=== PATIENT | male | born 1940 | race Caucasian/White ===

== ENCOUNTER → 2016-11-30 | Outpatient (CLI) | payer MEDICARE, BC ==
[2016-11-30 10:19] LABS: CH 34.2; CHCM 35.2; HCT 38.2 % (39.0-53.0); HDW 2.65; HGB 13.3 gm/dL (13.0-17.5); MCHC 34.8 g/dL (31.0-37.0); MCV 97.7 fL (80.0-100.0); Mean Platelet Volume 7.5; RBC 3.91 m/uL (4.30-5.90); RDW 12.7 % (11.5-15.5)
[2016-11-30 11:35] LABS: ALT 35 U/L (21-72); AST 36 U/L (17-59); Alkaline Phosphatase 63 U/L (38-126); Anion Gap 8 mmol/L; Blood Urea Nitrogen 30 mg/dL (9-20); Calcium 9.5 mg/dL (8.4-10.2); Carbon Dioxide 27 mmol/L (22-30); Chloride 107 mmol/L (98-107); Glucose 88 mg/dL (74-99); Non-African American GFR(MDRD) >60 (>60 ml/min/1.73 sqM); Potassium 5.1 mmol/L (3.5-5.1); Sodium 142 mmol/L (137-145); Total Bilirubin 1.1 mg/dL (0.2-1.3); Total Protein 7.5 g/dL (6.3-8.2)
[2016-11-30 12:27] LABS: Vitamin B12 200 pg/mL
[2016-11-30 13:06] LABS: Hemoglobin A1C 5.4 % (4.2-6.1)
== END ==
LOC: LABWHC1 09:42
PROVIDERS: ATTEND Psychiatry & Neurology Pain Medicine
DX: R41.3 Other amnesia (principal); R56.9 Unspecified convulsions; Z79.899 Other long term (current) drug therapy
CPT/HCPCS: 36415; 80053; 82607; 83036; 83519; 84439; 84443; 84481; 85027

== ENCOUNTER → 2016-12-01 | Outpatient (CLI) | payer MEDICARE, BC ==
--- NOTE | 2016-12-02 16:11 | NM ---
EXAMINATION TYPE: NM DatScan Brain SPECT DATE OF EXAM: 12/01/2016 3:11 PM COMPARISON: NONE HISTORY: Memory loss TECHNIQUE: 10 drops of Lugol's solution was administered 1 hour prior to injection as a thyroid bloc cody agent. After the administration of 4.4 mCi I-123 Ioflupane DaTscan. Images obtained [address] injection. SPECT images of the brain were acquired with axial and coronal reconstructions. FINDINGS: Scanning was performed and shows a head tilt causing a somewhat asymmetric appearance in the axial pl ane. Diminished putamen uptake is suspected within the right striatal tissue however. Normal comma sh aped uptake is noted within the putamen and caudate on the left. IMPRESSION: Findings are suggestive of abnormal decreased uptake within the putamen on the right.
== END ==
LOC: RADNMMAIN 10:01
PROVIDERS: ATTEND Psychiatry & Neurology Neurology
DX: R25.1 Tremor, unspecified (principal); R41.3 Other amnesia
CPT/HCPCS: 78607; A9584

== ENCOUNTER → 2016-12-03 | Outpatient (CLI) | payer MEDICARE, BC ==
--- NOTE | 2016-12-03 12:28 | CT ---
EXAMINATION TYPE: CT brain wo/w con DATE OF EXAM: 12/03/2016 11:44 AM COMPARISON: 07/31/2015 HISTORY: Seizures, tremors CT DLP: 2749 mGycm, Automated exposure control for dose reduction was used. CONTRAST: Patient injected with 65 ml mL of Omnipaque 350. CT of the brain is performed utilizing 3 mm thick sections through the posterior fossa and 3 mm thick sections through the remaining calvarium. Study is performed within 24 hours of arrival to the hospital. No abnormal hyperdensity is present to suggest an acute intracranial hemorrhage. No mass lesion is evident. No acute infarcts are evident. Ventricles and sulci are minimally prominent for the patient age. Postcontrast imaging is performed. No abnormal enhancement is evident. Paranasal sinuses and mastoid air cells within the [id number] are clear. IMPRESSIONS: 1. No acute intracranial process.
--- NOTE | 2016-12-04 10:04 | CT ---
EXAMINATION TYPE: CT angio head neck DATE OF EXAM: 12/03/2016 11:44 AM COMPARISON: NONE HISTORY: Seizures, tremors CT DLP: 2749 mGycm Automated exposure control for dose reduction was used. TECHNIQUE: Performed with IV Contrast, patient injected with 65 ml mL of Omnipaque 350. Axial images were obtained at 8 mm thick sections. Three-D reconstructed images performed separately by the technologist of the [employer] computer.. FINDINGS: Source images are reviewed. CTA [place]: [place] appears within normal limits. The internal carotid arteries bi furcate normally into A1 and M1 segments. Very small anterior vena cava and artery may be patent. Posterior indicating artery is present on the right.There is poor visualization of the right vertebral artery. Basilar artery appears normal. Pos terior cerebral vasculature is visualized is. CTA NECK: Atheromatous plaquing is at the bilateral carotid bifurcations. Significant flow-limiting s tenosis is not evident. There is a normal three-vessel arch. The left vertebral artery is dominant. R ight intraspinous vertebral artery is identified IMPRESSION: 1. ATHEROMATOUS PLAQUING WITHOUT SIGNIFICANT STENOSIS BILATERAL CAROTID BIFURCATIONS. 2. NORMAL [place]
== END ==
LOC: RADCTMAIN 10:42
PROVIDERS: ATTEND Psychiatry & Neurology Pain Medicine
DX: R41.3 Other amnesia (principal); R25.1 Tremor, unspecified
CPT/HCPCS: 70496; 70470; 70498; Q9967

== ENCOUNTER → 2017-02-10 | Outpatient (CLI) | payer MEDICARE, BC ==
--- NOTE | 2017-02-10 13:11 | US ---
EXAMINATION TYPE: US venous doppler duplex LE RT DATE OF EXAM: 02/10/2017 12:50 PM COMPARISON: NONE CLINICAL HISTORY: Pain in right lower leg M79.661. Pain right calf SIDE PERFORMED: right TECHNIQUE: The lower extremity deep venous system is examined utilizing real time linear array sonog dione with graded compression, doppler sonography and color-flow sonography. VESSELS IMAGED: External Iliac Vein (EIV) Common Femoral Vein Deep Femoral Vein Greater Saphenous Vein * Femoral Vein Popliteal Vein Small Saphenous Vein * Proximal Calf Veins (* superficial vessels) Right Leg: NO evidence of DVT IMPRESSION: Grayscale, color doppler, spectral doppler imaging performed of the deep veins of the lo wer extremities. There is normal flow, compressibility, vascular waveforms bilaterally.
== END | disposition home or self-care (01) ==
LOC: RADUSWWP 12:19
PROVIDERS: ATTEND Family Medicine
DX: M79.661 Pain in right lower leg (principal)

== ENCOUNTER → 2017-06-29 | Outpatient (CLI) | payer MEDICARE, BC ==
[2017-06-29 10:59] LABS: ALT 40 U/L (21-72); AST 25 U/L (17-59); Alkaline Phosphatase 65 U/L (38-126); Anion Gap 18 mmol/L; Blood Urea Nitrogen 19 mg/dL (9-20); Calcium 9.1 mg/dL (8.4-10.2); Carbon Dioxide 19 mmol/L (22-30); Chloride 105 mmol/L (98-107); Glucose 92 mg/dL (74-99); Non-African American GFR(MDRD) >60 (>60 ml/min/1.73 sqM); Potassium 4.6 mmol/L (3.5-5.1); Sodium 142 mmol/L (137-145); Total Bilirubin 1.3 mg/dL (0.2-1.3); Total Protein 7.3 g/dL (6.3-8.2)
== END | disposition home or self-care (01) ==
LOC: LABWHC1 09:10
PROVIDERS: ATTEND Family Medicine
DX: E03.9 Hypothyroidism, unspecified (principal)
CPT/HCPCS: 36415; 80053; 83605; 84439; 84443; 84481

== ENCOUNTER → 2018-02-01 | Outpatient (CLI) | payer MEDICARE, BC ==
[2018-02-01 12:28] LABS: Basophils % (A) 0 %; Eosinophils # (A) 0.1 k/uL (0-0.7); Eosinophils % (A) 2 %; HCT 36.6 % (39.0-53.0); HGB 12.7 gm/dL (13.0-17.5); Lymphocytes # (A) 1.7 k/uL (1.0-4.8); Lymphocytes % (A) 33 %; MCH 32.4 pg (25.0-35.0); MCHC 34.6 g/dL (31.0-37.0); MCV 93.5 fL (80.0-100.0); Mean Platelet Volume 7.4; Monocytes # (A) 0.3 k/uL (0-1.0); Monocytes % (A) 7 %; Neutrophils # (A) 2.9 k/uL (1.3-7.7); Neutrophils % (A) 56 %; Platelet Count 191 k/uL (150-450); RBC 3.91 m/uL (4.30-5.90); WBC 5.3 k/uL (3.8-10.6)
[2018-02-01 12:37] LABS: Partial Thromboplastin Time 22.3 sec (22.0-30.0); Prothrombin Time 10.2 sec (9.0-12.0)
== END | disposition home or self-care (01) ==
LOC: LABWHC1 11:33
PROVIDERS: ATTEND Nurse Practitioner Family
DX: R23.3 Spontaneous ecchymoses (principal)
CPT/HCPCS: 36415; 85025; 85610; 85730

== ENCOUNTER → 2018-05-10 | Outpatient (CLI) | payer MEDICARE, BC ==
--- NOTE | 2018-05-10 13:42 | CT ---
EXAMINATION TYPE: CT cervical spine wo con DATE OF EXAM: 05/10/2018 COMPARISON: CT cervical spine June 24, 2015. HISTORY: Decreased range of motion and pain with extension per patient. Cervicalgia per order. CT DLP: 479.4 mGycm. Automated Exposure Control for Dose Reduction was Utilized. TECHNIQUE: CT scan of the cervical spine is obtained without contrast, axial images are obtained, sa gittal and coronal reformatted images are also reviewed. FINDINGS: Cervical spine is visualized in its entirety from C1 through upper thoracic levels, coronal images redemonstrate levoconvex scoliotic curvature centered in the lower cervical spine without paramjit dence of acute fracture or dislocation. Sagittal images redemonstrated straightening of cervical spin e with slight grade 1 retrolisthesis of C6 on C7 redemonstrated. Prevertebral soft tissue appears wit hin normal limits. The C1-C2 articulation is within normal limits on the coronal images. Vertebral body heights are maintained. Moderate anterior spurring C4-C5 level is redemonstrated. Ther e is mild to moderate disc space narrowing with moderate to severe anterior spurring C5-C6 level. The re is fairly advanced disc space narrowing with moderate anterior spurring C6-C7 level redemonstrated . No new large posterior disc herniations are seen on sagittal images. Review of axial images shows uncovertebral facet degenerative change bilaterally, left greater than r ight more prominent from prior study causing asymmetric mild to moderate left-sided neural foraminal narrowing. Axial images at C3-C4 level show advanced uncovertebral facet degenerative changes causing advanced l eft-sided neural foraminal narrowing more prominent from prior. Axial images at C4-C5 level show left-sided uncovertebral facet degenerative changes causing mild lef t-sided neural foraminal narrowing not significantly changed from prior. Axial images at C5-C6 level show posterior spur disc complex effacing anterior thecal sac and uncover tebral facet degenerative changes with right-sided marginal spurring causing moderate to advanced rig ht-sided neural foraminal narrowing. Left-sided neural foramen is patent. No significant change from prior. Axial images at C6-C7 level show posterior spur disc complex and spondylolisthesis effacing anterior thecal sac with moderate left and mild right-sided neural foraminal narrowing. No significant change from prior. Axial images at C7-T1 level are felt within normal limits. Thyroid gland is felt within normal limits. Visualized lung apices are clear. IMPRESSION: Loss of normal cervical curvature with multilevel degenerative changes as detailed above, some progression from 2015 CT is noted.
== END | disposition home or self-care (01) ==
LOC: RADCTMAIN 12:01
PROVIDERS: ATTEND Psychiatry & Neurology Pain Medicine
DX: M47.812 Spondylosis without myelopathy or radiculopathy, cervical region (principal); M43.8X2 Other specified deforming dorsopathies, cervical region
CPT/HCPCS: 72125

== ENCOUNTER → 2018-07-04 | Outpatient (CLI) | payer MEDICARE, BC ==
--- NOTE | 2018-07-04 20:02 | CONS ---
CONSULTATION Consultation done for sleep apnea. 77-year-old male patient coming in to establish himself [facility] with myself in regards to his obstructive sleep apnea. The patient was diagnosed having ADAN back in 2014 under the care of Dr. Malcolm. His disease was mild with an AHI of 7.3, worse during REM sleep with an AHI of 49. The patient also had some nocturnal oxygen desaturation. He had multiple comorbidities included hypertension, coronary disease with previous AK and previous coronary stenting and has a permanent pacemaker insertion. For all these reasons, he was given CPAP therapy. He has been also diagnosed having Parkinson disease with Lewy body dementia. In terms of his obstructive sleep apnea treatment, the patient is utilizing an AirFit P10 nose pillow. I checked his CPAP unit which is showing excellent compliance to CPAP therapy. The patient has been averaging around 7.7 hours of CPAP use per night and his CPAP pressure is currently at 6 cm of water. Leak factor is only 20 L/minute. His AHI is down to 1.2. He has been doing very well. Waking up refreshed and alert during the day. No major hypersomnia or sleepiness. Note that as part of his dementia treatment the patient was given Exelon patches, however, he had to quit the treatment as the patient start having vivid dreams to the point it was very bothering him and he was unable to tolerate it. He was not acting out on his dreams and he did not any parasomnias or any violent behavior at nighttime during sleep. He goes to bed around 11:00 p.m., wakes up 6:00 a.m. in the morning. He is not snoring while on the CPAP therapy and he wakes up easily without any symptoms of insomnia and sleep is not fragment and wakes up in the morning without any major issues. PAST MEDICAL HISTORY: 1. Obstructive sleep apnea. 2. Coronary artery disease. 3. Parkinson disease. 4. Lewy body dementia. 5. Hypertension. 6. Hyperlipidemia. 7. Coronary disease with previous coronary intervention and stenting, due to previous myocardial infarction. 8. Permanent pacemaker insertion. 9. Hypertension. PAST SURGICAL HISTORY: Includes left knee arthroscopy. The left eye surgery for retinal detachment. Salivary gland/lymph node gland removal, pacemaker insertion, cardiac catheterization and insertion of various stents. DRUG ALLERGIES: Not known. OUTPATIENT MEDICATION LIST: Includes Synthroid 112 mcg p.o. daily, Losartan 25 mg p.o. daily, Plavix 75 mg p.o. b.i.d., Lipitor 80 mg p.o. daily, midodrine 2.5 mg half tablet with breakfast and then half tablet at lunch, Exelon rivastigmine patch 3 mg every 2 days and vitamin D 2000 units daily. SOCIAL HISTORY: Nonsmoker. No alcohol. No history of IV drugs. FAMILY HISTORY: Noncontributory. REVIEW OF SYSTEMS: 12-point review of system was done. Positive findings are mentioned above history of present illness. No history of any choking or gasping sensation at nighttime. No grinding of the teeth. No sleepwalking. No anxiety or panic attacks. No palpitation. No heartburn. No claustrophobia. Sleeps in various body positions. His sleep hygiene in general is adequate. No history of any motor vehicle accident because of feeling drowsy or sleepy. Weight has been stable also. PHYSICAL EXAMINATION: BP is 112/73, pulse 94, respirations 16, temperature 16, temperature 98.5, saturation 97% on room air. Height is 5 feet, weight is 208. Neck size 16.5 inches, BMI 29.8. GENERAL APPEARANCE: Calm, comfortable. Head is atraumatic, normocephalic. NECK: Supple. No JVD. No goiter or neck mass. LUNGS: Clear to auscultation. HEART: Sounds regular rhythm. Normal S1, S2. No S3. No murmurs. ABDOMEN: Soft, nontender. No organomegaly. EXTREMITIES: No edema. No cyanosis or clubbing. NEUROLOGIC: Alert and oriented x3. No focal neurological deficits. PSYCHIATRIC: Negative for anxiety or depression. IMPRESSION: 1. Obstructive sleep apnea mild with an AHI of 7.3 at baseline based on a sleep study from 2014. Currently the patient is on CPAP pressure of 6. 2. Hypersomnia, recovered, improved and stable. 3. Lewy body dementia. 4. Parkinson disease. 5. Coronary artery disease. 6. Hypertension. 7. Hyperlipidemia. 8. Hypothyroidism. PLAN: 1. Keep the PAP pressure unchanged. 2. Continue with AirFit P10 nose pillow. Refill on CPAP supplies were given. 3. Encourage weight loss. 4. Good sleep hygiene measures. 5. See me back in a year's time or earlier if needed. MMODL / IJN: [id number] /
== END | disposition home or self-care (01) ==
LOC: SLEEP 14:07
PROVIDERS: ATTEND Internal Medicine Critical Care Medicine
DX: G47.33 Obstructive sleep apnea (adult) (pediatric) (principal); I10 Essential (primary) hypertension; I25.10 Atherosclerotic heart disease of native coronary artery without angina pectoris; I25.2 Old myocardial infarction; G31.83 Neurocognitive disorder with Lewy bodies; F02.80 Dementia in other diseases classified elsewhere, unspecified severity, without behavioral disturbance, psychotic disturbance, mood disturbance, and anxiety; E78.5 Hyperlipidemia, unspecified; E03.9 Hypothyroidism, unspecified; Z98.890 Other specified postprocedural states; Z95.5 Presence of coronary angioplasty implant and graft; Z99.89 Dependence on other enabling machines and devices; Z79.02 Long term (current) use of antithrombotics/antiplatelets; Z79.899 Other long term (current) drug therapy
CPT/HCPCS: 99211

== ENCOUNTER → 2018-07-28 | Outpatient (CLI) | payer MEDICARE, BC ==
[2018-07-28 11:24] LABS: Basophils # (A) 0.1 k/uL (0-0.2); Basophils % (A) 1 %; Eosinophils # (A) 0.2 k/uL (0-0.7); Eosinophils % (A) 3 %; HCT 41.2 % (39.0-53.0); HGB 13.8 gm/dL (13.0-17.5); Lymphocytes # (A) 1.7 k/uL (1.0-4.8); Lymphocytes % (A) 27 %; MCH 33.1 pg (25.0-35.0); MCHC 33.5 g/dL (31.0-37.0); MCV 98.9 fL (80.0-100.0); Mean Platelet Volume 6.5; Monocytes # (A) 0.4 k/uL (0-1.0); Monocytes % (A) 6 %; Neutrophils # (A) 3.7 k/uL (1.3-7.7); Neutrophils % (A) 60 %; Platelet Count 161 k/uL (150-450); RBC 4.16 m/uL (4.30-5.90); RDW 12.6 % (11.5-15.5); WBC 6.2 k/uL (3.8-10.6)
[2018-07-28 19:20] LABS: Albumin 4.5 g/dL (3.80-4.90); Albumin/Globulin Ratio 1.8 (1.20-2.10); Anion Gap 8.3 mmol/L (4.00-12.00); Calcium 9.4 mg/dL (8.7-10.3); Carbon Dioxide 24.7 mmol/L (21.6-31.8); Globulin 2.5 g/dL (2.1-3.7); LDL Cholesterol,Calculated 60.4 mg/dL (0.0-131.0); Potassium 5.2 mmol/L (3.5-5.5); VLDL Calculation 14.6 mg/dL (5.00-40.00)
== END | disposition home or self-care (01) ==
LOC: LABWHC1 10:59
PROVIDERS: ATTEND Family Medicine
DX: G40.89 Other seizures (principal)
CPT/HCPCS: 36415; 80053; 80061; 82306; 84443; 85025

== ENCOUNTER → 2019-02-23 | Outpatient (CLI) | payer MEDICARE, BC ==
--- NOTE | 2019-02-23 10:20 | US ---
EXAMINATION TYPE: US abdomen complete DATE OF EXAM: 02/23/2019 COMPARISON: NONE CLINICAL HISTORY: R10.12 LUQ PAIN. Pt states generalized ABD pain EXAM MEASUREMENTS: Liver Length: 16.1 cm Gallbladder Wall: 0.3 cm CBD: 0.3 cm Spleen: 9.6 cm Right Kidney: 10.3 x 4.6 x 5.5 cm Left Kidney: 10.4 x 4.7 x 4.8 cm Abdominal aorta measures 2.7 cm proximally 1.8 cm within the midportion 2.1 cm distally. Pancreas: wnl, tail obscured by overlying bowel gas Liver: wnl Gallbladder: Lumen clear, wall thickness upper limits of normal Evidence for sonographic Perez's sign: No CBD: wnl Spleen: wnl Right Kidney: Complex Cyst mid= 1.8 x 1.6 x 1.8 cm with internal septation. Monitoring is recommended Left Kidney: No evidence of hydro, difficult to visualize due to overlying bowel gas Upper IVC: wnl Abd Aorta: Ectatic without evidence of AAA IMPRESSION: 1. Complex cyst right ovary with an internal septation. Monitoring is recommended. 2. Ectasia of the abdominal aorta.
== END | disposition home or self-care (01) ==
LOC: RADUSWWP 06:56
PROVIDERS: ATTEND Family Medicine
DX: I77.819 Aortic ectasia, unspecified site (principal); N28.1 Cyst of kidney, acquired; R10.12 Left upper quadrant pain
CPT/HCPCS: 76700

== ENCOUNTER → 2019-03-09 | Outpatient (CLI) | payer MEDICARE, BC ==
--- NOTE | 2019-03-09 12:51 | CT ---
EXAMINATION TYPE: CT angio chest DATE OF EXAM: 03/09/2019 COMPARISON: 03/09/2019 HISTORY: Shortness of breath CT DLP: 352.3 mGycm. Automated Exposure Control for Dose Reduction was Utilized. CONTRAST: CTA scan of the thorax is performed with IV Contrast, patient injected with 100 mL of Isovue 370, pul monary embolism protocol. MIP Images are created on CT scanner and reviewed. FINDINGS: LUNGS: There is increasing focality of a now 6 mm right apical pulmonary nodule seen medially on imag e 27 with the more linear component in total measuring 1.7 cm. 3 mm nodule is also seen on image 24 c ontiguous with pleural thickening. Linear pulmonary nodule on image 66 along the right interlobar fis sure is stable and may represent a small intrafissural lymph node. This measures up to 4 mm. The prev iously seen 5 mm right middle lobe nodule has resolved in the interim and was likely related to atele ctasis. The previously seen left midlung pulmonary nodule is unchanged measuring 4 mm on image 62. 4 mm pulmonary nodule is unchanged in the left lung base on image 125. Additional 3 mm pulmonary nodule is seen on the left on image 103, appearing new. No new focal consolidation, pleural effusion or pne umothorax. Strand-like basilar atelectasis is new in the right lung base. Main trachea (tree is paten t. MEDIASTINUM: There is satisfactory enhancement of the pulmonary artery and its branches, there is no CT evidence for pulmonary embolism. There are no greater than 1 cm hilar or mediastinal lymph nodes. No cardiomegaly or pericardial effusion is seen. Urinary stent is seen within the left anterior de scending coronary artery with severe makah coronary artery calcifications. Ascending thoracic aorta and main pulmonary arteries are within normal limits of size. Cardiac pacemaker is again noted. OTHER: 1.9 cm renal cyst is present. Moderate atherosclerosis of the upper abdominal aorta. Moderate multilevel degenerative changes of the spine. IMPRESSION: 1. No evidence of pulmonary embolus. 2. Coronary artery stent in the LAD with severe makah coronary artery calcifications. 3. New right basilar subsegmental atelectasis. 4. Multiple subcentimeter pulmonary nodules. The largest demonstrates increased conspicuity and one n ew nodule is seen and therefore short-term follow-up with six-month chest CT is recommended.
== END | disposition home or self-care (01) ==
LOC: RADCTMAIN 10:41
PROVIDERS: ATTEND Family Medicine
DX: I25.10 Atherosclerotic heart disease of native coronary artery without angina pectoris (principal); J98.11 Atelectasis; R91.8 Other nonspecific abnormal finding of lung field; R94.4 Abnormal results of kidney function studies; Z95.5 Presence of coronary angioplasty implant and graft
CPT/HCPCS: 82565; 84520; 71275; 36415; Q9967

== ENCOUNTER → 2019-03-09 | Outpatient (CLI) | payer MEDICARE, BC ==
--- NOTE | 2019-03-09 10:42 | CT ---
EXAMINATION TYPE: CT cervical spine wo con DATE OF EXAM: 03/09/2019 COMPARISON: CT cervical spine 05/10/2018 HISTORY: Cervicalgia CT DLP: 560 mGycm Automated exposure control for dose reduction was used. TECHNIQUE: CT scan of the cervical spine is obtained without contrast, axial images are obtained, sagittal and c oronal reformatted images are also reviewed. FINDINGS: The exam is stable. Multilevel spondylosis is present especially at C5-6, C6-7 with near loss of disc space at C6-7. Minimal anterolisthesis grade 1 C3-4. Loss of disc height also present C3-4, C4-5, C5 -6 and C7-T1 as on prior. There is multilevel facet arthropathy. Prevertebral soft tissue appears wit hin normal limits. The C1-C2 articulation is within normal limits on the coronal images. C3-4 shows extensive facet arthropathy in the left and uncovertebral joint hypertrophy causing left-s ided greater than right foraminal encroachment. No significant central stenosis. C4-5 shows extensive facet arthropathy in the left. No significant central stenosis or evident disc h erniation. C5-6: Bilateral foraminal encroachment is present right greater than left. Posterior extension of end plate disc complex causes mild anterior mass effect on the thecal sac. C6-7: Bilateral foraminal encroachment is present. Posterior extension endplate disc complex results in mild central stenosis. Remaining levels are unremarkable. Pacemaker lead is noted incidentally coursing from the left. Lung apices are normal. IMPRESSION: Degenerative disc disease, multilevel foraminal encroachment. Multilevel facet arthropath y. No significant spinal stenosis. No evident disc herniation on this noncontrast CT. There is no acute fracture or dislocation evident in the cervical spine.
== END | disposition home or self-care (01) ==
LOC: RADCTMAIN 08:02
PROVIDERS: ATTEND Psychiatry & Neurology Neurology
DX: M50.30 Other cervical disc degeneration, unspecified cervical region (principal); M46.92 Unspecified inflammatory spondylopathy, cervical region
CPT/HCPCS: 72125

== ENCOUNTER → 2019-07-05 | Outpatient (CLI) | payer MEDICARE, BC ==
--- NOTE | 2019-07-06 04:51 | NM ---
EXAMINATION TYPE: NM DatScan Brain SPECT DATE OF EXAM: 07/05/2019 COMPARISON: NONE HISTORY: 78-year-old male G25.0, tremor TECHNIQUE: 10 drops of Lugol's solution was administered 1 hour prior to injection as a thyroid bloc cody agent. After the administration of 4.44 mCi I-123 Ioflupane DaTscan. Images obtained 3 hours p ost injection. SPECT images of the brain were acquired with axial and coronal reconstructions. FINDINGS: The axial SPECT images demonstrate normal background activity. Accounting for head tilt, there appea rs to be slight asymmetrically blunted comma-shaped appearance of the right corpus striatum. IMPRESSION: Suggestion of very slight reduction in activity on the right. Consider follow-up given the minimal ch anges at this time. Findings may be seen in the setting of either idiopathic Parkinson's disease or a Parkinsonian Syndrome.
== END | disposition home or self-care (01) ==
LOC: RADNMMAIN 10:47
PROVIDERS: ATTEND Psychiatry & Neurology Neurology
DX: G25.0 Essential tremor (principal)
CPT/HCPCS: 78607; A9584

== ENCOUNTER → 2019-07-31 | Outpatient (CLI) | payer MEDICARE, BC ==
--- NOTE | 2019-07-31 19:52 | PN ---
PROGRESS NOTE This is a 78-year-old male patient coming in for annual check regarding his obstructive sleep apnea. The patient has mild disease with an AHI of 7.3, and he was given a CPAP pressure of 6 cm of water. Since his last evaluation, the patient has lost around 11 pounds. He is feeling great. He is using his CPAP every night. He is averaging about 8 hours per night and his CPAP use for more than 4 hours is 100%. His leak is at 29 L/minute and his AHI is down to 0.8. He is interested in a different mask interface as the patient is using AirFit P10 nose pillows. His humidity level is at 2 and temperature of the tubing is at 86 degrees Fahrenheit. He has no other complaints otherwise for now. PAST MEDICAL HISTORY: Of obstructive sleep apnea in addition to coronary artery disease, Parkinson disease dementia with Lewy bodies. Hypertension, hyperlipidemia, coronary artery disease and history of pacemaker insertion along with hypertension. REVIEW OF SYSTEMS: Fourteen-point review of system was done. No major hypersomnia or sleepiness. [place] score is down to 1. He is tolerating the treatment. He has no specific complaints. Occasionally, he is having some dryness in his mouth. PHYSICAL EXAMINATION: His vitals: His blood pressure is 121/69, pulse 65, respirations 16, temperature 97.5, saturation 98% on room air. Height is 5 feet 10 inches, weight 197, and saturation 97% on room air. GENERAL APPEARANCE: Calm, comfortable. Head is atraumatic, normocephalic. NECK: Supple. No JVD. No goiter or neck masses. LUNGS: Clear to auscultation. HEART: Heart sounds are regular rate and rhythm. Normal S1, S2. No S3. No murmurs. ABDOMEN: Soft, nontender. No organomegaly. EXTREMITIES: No edema. No cyanosis or clubbing. NEUROLOGIC: He is awake, alert, and there are no focal neurological deficits. PSYCHIATRIC: Negative for anxiety or depression. IMPRESSION: 1. Obstructive sleep apnea. The patient has mild disease with an AHI of 7.3, and continues to be on a CPAP pressure of 6 cm of water which has been essentially successful. 2. Hypersomnia, recovered. [place] score is down to 1. 3. Dementia with Lewy bodies. 4. Parkinson disease. 5. Coronary artery disease. 6. Hypertension. 7. Hyperlipidemia. 8. Hypothyroidism. PLAN: Continue CPAP at a pressure of 6. Treatment is successful. Encourage weight loss. The patient has already lost around 11 pounds since his last evaluation. I increased the humidity up to 4. I dropped the temperature of the tubing down to 72 degrees Fahrenheit. I also offered him the AirFit N30I medium-size nose mask to try which he liked. He will let me know if this is something that he would like to use in the future. Otherwise, I will see him back in a year's time in followup. MMJOSÉL / IJN: [id number] /
== END | disposition home or self-care (01) ==
LOC: SLEEP 14:35
PROVIDERS: ATTEND Internal Medicine Critical Care Medicine
DX: G47.33 Obstructive sleep apnea (adult) (pediatric) (principal); G31.83 Neurocognitive disorder with Lewy bodies; F02.80 Dementia in other diseases classified elsewhere, unspecified severity, without behavioral disturbance, psychotic disturbance, mood disturbance, and anxiety; I25.10 Atherosclerotic heart disease of native coronary artery without angina pectoris; I10 Essential (primary) hypertension; E78.5 Hyperlipidemia, unspecified; E03.9 Hypothyroidism, unspecified

== ENCOUNTER → 2019-07-31 | Outpatient (CLI) | payer MEDICARE, BC ==
[2019-07-31 13:19] LABS: HCT 38.6 % (39.0-53.0); HGB 13.1 gm/dL (13.0-17.5); MCH 34.4 pg (25.0-35.0); Mean Platelet Volume 6.3; Platelet Count 143 k/uL (150-450); RBC 3.82 m/uL (4.30-5.90); RDW 12.1 % (11.5-15.5); WBC 5.7 k/uL (3.8-10.6)
[2019-07-31 14:32] LABS: Eosinophils # (M) 0.34 k/uL (0-0.7); Lymphocytes # (M) 2.05 k/uL (1.0-4.8); Monocytes # (M) 0.29 k/uL (0-1.0); Neutrophils % (M) 53 %; Nucleated Red Blood Cells 0 /100 WBC (0-0); Total Cells Counted 100
[2019-07-31 19:57] LABS: African American GFR (CKD) 74.7 (60.0-200.0); Albumin/Globulin Ratio 1.54 (1.60-3.17); Anion Gap 7.5 mmol/L (4.00-12.00); BUN/Creat Ratio 22.73 Ratio (12.00-20.00); Carbon Dioxide 28.5 mmol/L (21.6-31.8); Globulin 2.6 g/dL (1.6-3.3); Potassium 4.7 mmol/L (3.5-5.5); Total Bilirubin 0.6 mg/dL (0.2-1.2); Total Protein 6.6 g/dL (6.2-8.2)
== END | disposition home or self-care (01) ==
LOC: LABWHC1 12:13
PROVIDERS: ATTEND Family Medicine
DX: I10 Essential (primary) hypertension (principal)
CPT/HCPCS: 36415; 80053; 85025

== ENCOUNTER → 2019-08-04 | Outpatient (CLI) | payer MEDICARE, BC ==
--- NOTE | 2019-08-06 04:30 | CT ---
EXAMINATION TYPE: CT chest w con DATE OF EXAM: 08/04/2019 COMPARISON: 03/09/2019 and 07/03/2015 HISTORY: 78-year-old male abnormal findings of lung field, Follow up nodule TECHNIQUE: Contiguous axial scanning of the chest after the administration of 100 mL of Isovue 300. Coronal/sagittal reconstructions performed. CT DLP: 360.2mGycm. Automatic exposure control utilized for a dose reduction. FINDINGS: Left anterior chest wall pacemaker generator with right atrial and right ventricular leads. Heart upper limits of normal in size without pericardial effusion. Extensive coronary vessel calcific ations are present. Ectatic ascending aorta at 3.8 cm Impression large vessel branching anatomy with mild atherosclerotic arch calcifications. Scattered nonenlarged mediastinal lymph nodes are present, largest measuring up to 7 mm. No thoracic lymphadenopathy with CT size criteria. Medial right apical pulmonary nodule measures 8 mm adjacent to an area of pleural parenchymal scarrin g, stable from 03/09/2019, increased in size from 2015. The 3 mm pulmonary nodule described to be new peripheral left lower lobe, axial image 45 is less defi jovan compared to 03/09/2019 suggesting a benign etiology. Additional 5 mm smaller scattered pulmonary nodules are stable back to 2014. Hypodense cortical lesion measures 2.0 cm along the lateral mid pole right kidney versus 1.1 cm in 20 15. Relatively unchanged from 03/09/2019. Moderate stool burden. Bones: Mild anterior endplate spondylosis upper and lower thoracic spine. No osseous destructive proc ess. IMPRESSION: 1. 8 mm medial right apical pulmonary nodule stable for 5 months, increased from 2015. Additional one -year follow-up can be performed. 2. A tiny 3 mm left lower lobe pulmonary nodule, new on 03/09/2019, is less defined suggesting a benign etiology. Otherwise, 5 mm and smaller scattered pulmonary nodules are stable back to 2015. 3. A 2 cm cystic lesion lateral midpole right kidney measuring 1.1 cm back in 2015. Mild internal com plexity is demonstrated on the patient's 02/23/2019 ultrasound. Annual ultrasound surveillance is hyacinth mmended.
== END ==
LOC: RADCTMAIN 09:52
PROVIDERS: ATTEND Family Medicine
DX: R91.8 Other nonspecific abnormal finding of lung field (principal)
CPT/HCPCS: 71260; Q9967

== ENCOUNTER → 2021-01-09 | Outpatient (CLI) | payer MEDICARE, BC ==
[2021-01-09 21:10] LABS: HCT 39.2 % (39.6-50.0); HGB 12.6 g/dL (13.0-17.0); MCH 33.7 pg (27.0-32.0); MCHC 32.1 g/dL (32.0-37.0); MCV 104.8 fL (80.0-97.0); Mean Platelet Volume 10.4 fL (9.5-12.2); Platelet Count 180 X 10*3/uL (140-440); RBC 3.74 X 10*6/uL (4.40-5.60); RDW 12.9 % (11.5-14.5); WBC 8.58 X 10*3/uL (4.50-10.00)
[2021-01-09 21:41] LABS: Basophils # (A) 0.04 X 10*3/uL (0.00-0.10); Basophils % (A) 0.5 %; Eosinophils # (A) 0.19 X 10*3/uL (0.04-0.35); Eosinophils % (A) 2.2 %; Lymphocytes # (A) 3.03 X 10*3/uL (0.90-5.00); Lymphocytes % (A) 35.3 %; Monocytes # (A) 0.71 X 10*3/uL (0.20-1.00); Monocytes % (A) 8.3 %; Neutrophils # (A) 4.58 X 10*3/uL (1.80-7.70); Neutrophils % (A) 53.4 %
[2021-01-09 22:46] LABS: Erythrocyte Sedimentation Rate 62 mm/Hr (0-20)
[2021-01-10 02:07] LABS: African American GFR (CKD) 66.3 (60.0-200.0); Albumin 3.6 g/dL (3.80-4.90); Albumin/Globulin Ratio 1.03 (1.60-3.17); Anion Gap 11.3 mmol/L (4.00-12.00); BUN/Creat Ratio 19.17 Ratio (12.00-20.00); C Reactive Protein 0.7 mg/dL (0.0-0.8); Calcium 9.1 mg/dL (8.7-10.3); Carbon Dioxide 20.7 mmol/L (21.6-31.8); Globulin 3.5 g/dL (1.6-3.3); Non-African American GFR(CKD) 57.2 (60.0-200.0); Potassium 4.8 mmol/L (3.5-5.5); Total Bilirubin 0.6 mg/dL (0.3-1.2); Total Protein 7.1 g/dL (6.2-8.2)
[2021-01-10 06:21] LABS: Anti-Smith Ab Interp NEGATIVE (NEGATIVE); Cyclic Citrull Pep IgG Unit <0.5 U/mL; Cyclic Citrullinated Pep IgG NEGATIVE (NEGATIVE); DNA Double-Stranded NEGATIVE (NEGATIVE); JO-1 IgG Antibody <0.2 AI; Scleroderma SC-70 Ab <0.2 AI
== END | disposition home or self-care (01) ==
LOC: LABWHC1 13:09
PROVIDERS: ATTEND Psychiatry & Neurology Pain Medicine
DX: M25.50 Pain in unspecified joint (principal)
CPT/HCPCS: 86235 ×5; 80053; 85652; 83516; 85025; 86140; 86038; 86225; 86200; 36415; U0003; C9803; U0005

== ENCOUNTER → 2021-01-19 | Outpatient (CLI) | payer MEDICARE ==
[2021-01-19 14:52] LABS: HCT 37.9 % (39.6-50.0); HGB 12.3 g/dL (13.0-17.0); MCH 33.8 pg (27.0-32.0); MCHC 32.5 g/dL (32.0-37.0); MCV 104.1 fL (80.0-97.0); Mean Platelet Volume 10.7 fL (9.5-12.2); Platelet Count 168 X 10*3/uL (140-440); RBC 3.64 X 10*6/uL (4.40-5.60); RDW 12.7 % (11.5-14.5); WBC 9.79 X 10*3/uL (4.50-10.00)
[2021-01-19 15:25] LABS: Basophils # (A) 0.08 X 10*3/uL (0.00-0.10); Basophils % (A) 0.8 %; Eosinophils % (A) 3.1 %; Lymphocytes # (A) 3.28 X 10*3/uL (0.90-5.00); Lymphocytes % (A) 33.5 %; Monocytes # (A) 1.23 X 10*3/uL (0.20-1.00); Monocytes % (A) 12.6 %; Neutrophils # (A) 4.88 X 10*3/uL (1.80-7.70); Neutrophils % (A) 49.8 %
[2021-01-19 15:56] LABS: % Iron Saturation 39.05 (15.00-50.00); Chol/HDL Ratio 3.76; Ferritin 157.6 ng/mL (22.0-322.0); LDL Cholesterol,Calculated 44.8 mg/dL (0.0-131.0); T4, Free (Free Thyroxine) 1.2 ng/dL (0.80-1.80); VLDL Calculation 13.2 mg/dL (5.00-40.00)
== END | disposition home or self-care (01) ==
LOC: LABWHC1 08:24
PROVIDERS: ATTEND Family Medicine
DX: E03.9 Hypothyroidism, unspecified (principal); I10 Essential (primary) hypertension; E78.2 Mixed hyperlipidemia; I25.10 Atherosclerotic heart disease of native coronary artery without angina pectoris; E55.9 Vitamin D deficiency, unspecified; M62.81 Muscle weakness (generalized); D64.9 Anemia, unspecified; R06.02 Shortness of breath
CPT/HCPCS: 36415; 80061; 82306; 82607; 82728; 82747; 83519; 83540; 83550; 84439; 84443; 85025

== ENCOUNTER → 2021-02-25 | Outpatient (CLI) | payer MEDICARE | END | disposition home or self-care (01) | LOC: LABWHC1 15:36 | PROVIDERS: ATTEND Psychiatry & Neurology Pain Medicine | DX: R41.82 Altered mental status, unspecified (principal); R63.4 Abnormal weight loss | CPT/HCPCS: 36415 ==

== ENCOUNTER → 2021-03-18 | Outpatient (CLI) | payer MEDICARE ==
--- NOTE | 2021-03-18 15:18 | CT ---
EXAMINATION TYPE: CT brain w con DATE OF EXAM: 03/18/2021 COMPARISON: CT brain December 03, 2016 HISTORY: Altered mental status. History of mantle cell lymphoma. CT DLP: 1047.1 mGycm Automated exposure control for dose reduction was used. CONTRAST: CT scan of the head is performed with IV Contrast, patient injected with 100 mL of Isovue M300. FINDINGS: There is no abnormal enhancing mass or midline shift identified. Mild ventricular and sulcal prominen ce redemonstrated. The globes are intact and the visualized sinuses are clear. IMPRESSION: Mild diffuse age-related cerebral atrophy. No enhancing masses. No significant change 2016 CT.
== END | disposition home or self-care (01) ==
LOC: RADCTMAIN 13:15
PROVIDERS: ATTEND Psychiatry & Neurology Neurology
DX: R41.82 Altered mental status, unspecified (principal); G31.9 Degenerative disease of nervous system, unspecified; Z85.72 Personal history of non-Hodgkin lymphomas
CPT/HCPCS: 82565; 84520; 70460; 36415; Q9967

== ENCOUNTER → 2021-03-27 | Outpatient (CLI) | payer MEDICARE ==
--- NOTE | 2021-03-27 07:52 | US ---
EXAMINATION TYPE: US venous doppler duplex LE BI DATE OF EXAM: 03/27/2021 7:32 AM COMPARISON: NONE CLINICAL HISTORY: M79.662,R22.42 PAIN AND SWELLING DEYANIRA LIMBS. edema noted bilaterally, worse on the r ight SIDE PERFORMED: bilateral TECHNIQUE: The lower extremity deep venous system is examined utilizing real time linear array sonog dione with graded compression, doppler sonography and color-flow sonography. VESSELS IMAGED: Common Femoral Vein Deep Femoral Vein Greater Saphenous Vein * Femoral Vein Popliteal Vein Proximal Calf Veins (* superficial vessels) Right Leg: no evidence of DVT. rouleaux flow noted Left Leg: no evidence of DVT. rouleaux flow noted IMPRESSION: No sonographic evidence for hemodynamically significant stenosis in either lower extremity.
== END | disposition home or self-care (01) ==
LOC: RADUSWWP 07:01
PROVIDERS: ATTEND Internal Medicine Hematology & Oncology
DX: R22.42 Localized swelling, mass and lump, left lower limb (principal); M79.662 Pain in left lower leg
CPT/HCPCS: 93970

== ENCOUNTER 2021-05-07 19:59 | Inpatient (IN) | payer MEDICARE ==
[2021-05-07] MEDS ORDERED: ACETAMINOPHEN TAB 500 MG TAB PO STA (20:52)
--- NOTE | 2021-05-07 21:05 | ED ---
General Adult HPI - General Chief complaint: Fever Stated complaint: abnormal labs Time Seen by Provider: 05/07/21 20:42 Source: patient Mode of arrival: ambulatory - History of Present Illness Initial comments: 80 year-old male patient currently being treated with chemotherapy for Mantle Cell Lymphoma presents to the emergency department for evaluation of fever. Patient had labs drawn at [facility] and was found to be neutropenic with a wbc of 0.8. He is treated by Dr. Grady. Patient denies any other symptoms. Denies cough, congestion, shortness of breath, nausea, vomiting, or diarrhea. Does report some urinary frequency but denies any dysuria, hematuria or urinary ur gency. Does report some mild left lower quadrant abdominal pain, states he's been having this since being diagnosed with lymphoma. Reports itchy rash related to the chemotherapy. Denies any wounds. Patient denies any recent chest pain, abdominal pain, nausea, vomiting, constipation, back pain, numbness, tingling, dizziness, weakness, headache, visual changes, or any other complaints. - Related Data Home Medications Medication Instructions Recorded Confirmed Atorvastatin [Lipitor] 80 mg PO DAILY 05/30/15 05/07/21 Clopidogrel Bisulfate [Plavix] 75 mg PO DAILY 05/30/15 05/07/21 Losartan [Cozaar] 12.5 mg PO DAILY 05/30/15 05/07/21 Midodrine HCl [ProAmatine] 2.5 mg PO DAILY 05/30/15 05/07/21 Acyclovir 400 mg PO BID 05/07/21 05/07/21 Cholecalciferol [Vitamin D3 (25 50 mcg PO DAILY 05/07/21 05/07/21 Mcg = 1000 Iu)] Cyanocobalamin (Vitamin B-12) 1,000 mcg PO DAILY 05/07/21 05/07/21 [Vitamin B-12] Hydrocortisone Oint 1 applic TOPICAL BID 05/07/21 05/07/21 [Hydrocortisone 2.5% Oint] Levofloxacin [Levaquin] 500 mg PO DAILY 05/07/21 05/07/21 Levothyroxine Sodium [Synthroid] 75 mcg PO DAILY 05/07/21 05/07/21 Nystatin 100,000 Unit/ml Susp 4 ml PO QID 05/07/21 05/07/21 [Mycostatin Oral Susp] hydrOXYzine HCL 20 mg PO BID PRN 05/07/21 05/07/21 levETIRAcetam [Keppra] 1,000 mg PO BID 05/07/21 05/07/21 ondansetron HCL [Zofran] 8 mg PO Q6H PRN 05/07/21 05/07/21 Allergies Allergy/AdvReac Type Severity Reaction Status Date / Time No Known Allergies Allergy Verified 05/07/21 22:41 Review of Systems ROS Statement: Those systems with pertinent positive or pertinent negative responses have been documented in the HPI. ROS Other: All systems not noted in ROS Statement are negative. Past Medical History Past Medical History: Thyroid Disorder Additional Past Medical History / Comment(s): LBBB, hx gout, occ problem with balance, swollen hand from wasp sting, vertigo, lymphoma Last Myocardial Infarction Date:: 2012 History of Any Multi-Drug Resistant Organisms: None Reported Past Surgical History: Heart Catheterization With Stent, Orthopedic Surgery, Pacemaker Additional Past Surgical History / Comment(s): total 4 stents, removal of salivary gland and lymph node, cataracts, left knee arthroscopy Past Anesthesia/Blood Transfusion Reactions: Motion Sickness Date of Last Stent Placement:: 2012 Type of Cardiac Device: Permanent Pacemaker Device Placement Date:: 2012 Past Psychological History: No Psychological Hx Reported Smoking Status: Never smoker Past Alcohol Use History: None Reported Past Drug Use History: None Reported - Past Family History Mother Family Medical History: Cancer Sister(s) Family Medical History: Cancer General Exam General appearance: alert, in no apparent distress, other (This a well-d eveloped, well-nourished elderly male patient in no acute distress. Vital signs upon presentation are temperature 102F oral, pulse 100, respirations 19, blood pressure 130/72, pulse ox 99% on room air.) Respiratory exam: Present: normal lung sounds bilaterally. Absent: respiratory distress, wheezes, rales, rhonchi, stridor Cardiovascular Exam: Present: regular rate, normal rhythm, normal heart sounds. Absent: systolic murmur, diastolic murmur, rubs, gallop, clicks GI/Abdominal exam: Present: soft, tenderness (left lower quadrant), normal bowel sounds. Absent: distended, guarding, rebound, rigid Neurological exam: Present: alert, oriented X3, CN II-XII intact Psychiatric exam: Present: normal affect, normal mood Skin exam: Present: warm, dry, intact, normal color. Absent: rash Course Vital Signs 05/07/21 05/08/21 20:16 00:16 Temperature 100.5 F H 99.1 F Pulse Rate 100 55 L Respiratory 19 16 Rate Blood Pressure 130/72 109/54 O2 Sat by Pulse 99 95 Oximetry EKG Findings - EKG Comments: EKG Findings:: EKG obtained at 2115 shows atrial paced rhythm with prolonged AV conduction. Left bundle branch block. Ventricular rate is 60, IN interval 10/05/2015, QRS duration 122, QTc 460, QTC 460. Medical Decision Making - Medical Decision Making 80-year-old male patient currently being treated with chemotherapy for mantle cell lymphoma presents for evaluation of fever. Did have low white blood cell count outpatient today. Physical examination did reveal mild generalized rash. Lungs clear to auscultation. Abdomen soft exhibited mild tenderness left lower quadrant but he states this is not new since being diagnosed with follow-up. Labs reviewed and did redemonstrate decreased white blood cell count at 0.8. Chest x-ray was negative. Urinalysis showed no sign of infection. He'll be admitted for IV antibiotics for neutropenic fever. I did consult oncology as well as infectious disease. Patient is agreeable this plan. Case discussed with my attending Dr. Ray. - Lab Data Result diagrams: 05/07/21 21:01 05/07/21 21:01 Lab Results 05/07/21 05/07/21 05/07/21 Range/Units 21:01 21:01 21:01 WBC 0.8 L* (3.8-10.6) k/uL RBC 2.82 L (4.30-5.90) m/uL Hgb 10.1 L (13.0-17.5) gm/dL Hct 28.2 L (39.0-53.0) % MCV 100.3 H (80.0-100.0) fL MCH 35.9 H (25.0-35.0) pg MCHC 35.8 (31.0-37.0) g/dL RDW 14.2 (11.5-15.5) % Plt Count 250 (150-450) k/uL MPV 7.4 Neutrophils # [employer] Differential Comment Poikilocytosis Slight Macrocytosis Slight PT 10.3 (9.0-12.0) sec INR 1.0 (<1.2) APTT 23.8 (22.0-30.0) sec Sodium (137-145) mmol/L Potassium (3.5-5.1) mmol/L Chloride (98-107) mmol/L Carbon Dioxide (22-30) mmol/L Anion Gap mmol/L BUN (9-20) mg/dL Creatinine (0.66-1.25) mg/dL Est GFR (CKD-EPI)AfAm (>60 ml/min/1.73 sqM) Est GFR (CKD-EPI)NonAf (>60 ml/min/1.73 sqM) Glucose (74-99) mg/dL Plasma Lactic Acid [place] (0.7-2.0) mmol/L Calcium (8.4-10.2) mg/dL Total Bilirubin (0.2-1.3) mg/dL AST (17-59) U/L ALT (4-49) U/L Alkaline Phosphatase (38-126) U/L Total Protein (6.3-8.2) g/dL Albumin (3.5-5.0) g/dL Urine Color Yellow Urine Appearance Clear (Clear) Urine pH 7.5 (5.0-8.0) Ur Specific [place] 1.018 (1.001-1.035) Urine Protein Trace H (Negative) Urine Glucose (UA) Negative (Negative) Urine Ketones Negative (Negative) Urine Blood Negative (Negative) Urine Nitrite Negative (Negative) Urine Bilirubin Negative (Negative) Urine Urobilinogen 3.0 (<2.0) mg/dL Ur Leukocyte Esterase Negative (Negative) Coronavirus (PCR) (Not Detectd) 05/07/21 05/07/21 05/07/21 Range/Units 21:01 21:01 21:01 WBC (3.8-10.6) k/uL RBC (4.30-5.90) m/uL Hgb (13.0-17.5) gm/dL Hct (39.0-53.0) % MCV (80.0-100.0) fL MCH (25.0-35.0) pg MCHC (31.0-37.0) g/dL RDW (11.5-15.5) % Plt Count (150-450) k/uL MPV Neutrophils # Differential Comment Poikilocytosis Macrocytosis PT (9.0-12.0) sec INR (<1.2) APTT (22.0-30.0) sec Sodium 131 L (137-145) mmol/L Potassium 4.3 (3.5-5.1) mmol/L Chloride 99 (98-107) mmol/L Carbon Dioxide 24 (22-30) mmol/L Anion Gap 8 mmol/L BUN 17 (9-20) mg/dL Creatinine 1.00 (0.66-1.25) mg/dL Est GFR (CKD-EPI)AfAm 82 (>60 ml/min/1.73 sqM) Est GFR (CKD-EPI)NonAf 71 (>60 ml/min/1.73 sqM) Glucose 91 (74-99) mg/dL Plasma Lactic Acid [place] 0.9 (0.7-2.0) mmol/L Calcium 8.7 (8.4-10.2) mg/dL Total Bilirubin 0.7 (0.2-1.3) mg/dL AST 24 (17-59) U/L ALT 11 (4-49) U/L Alkaline Phosphatase 52 (38-126) U/L Total Protein 6.5 (6.3-8.2) g/dL Albumin 3.4 L (3.5-5.0) g/dL Urine Color Urine Appearance (Clear) Urine pH (5.0-8.0) Ur Specific [place] (1.001-1.035) Urine Protein (Negative) Urine Glucose (UA) (Negative) Urine Ketones (Negative) Urine Blood (Negative) Urine Nitrite (Negative) Urine Bilirubin (Negative) Urine Urobilinogen (<2.0) mg/dL Ur Leukocyte Esterase (Negative) Coronavirus (PCR) Not Detected (Not Detectd) - Radiology Data Radiology results: report reviewed, image reviewed 2 views of the chest are obtained. Report was reviewed in its entirety. Impression by Dr. Palm shows normal chest. No evidence of bronchopneum onia. No change. Disposition Clinical Impression: Neutropenic fever Disposition: ADMITTED IP TO THIS [facility] Condition: Serious Decision to Admit Reason: Admit from EC Decision Date: 05/07/21 Decision Time: 23:00
[2021-05-07 21:14] LABS: HCT 28.2 % (39.0-53.0); HGB 10.1 gm/dL (13.0-17.5); MCH 35.9 pg (25.0-35.0); MCHC 35.8 g/dL (31.0-37.0); MCV 100.3 fL (80.0-100.0); Macrocytosis Slight; Mean Platelet Volume 7.4; Platelet Count 250 k/uL (150-450); Poikilocytosis Slight; RBC 2.82 m/uL (4.30-5.90); RDW 14.2 % (11.5-15.5)
[2021-05-07 21:27] LABS: WBC 0.8 k/uL (3.8-10.6)
[2021-05-07 21:29] LABS: Partial Thromboplastin Time 23.8 sec (22.0-30.0); Prothrombin Time 10.3 sec (9.0-12.0)
[2021-05-07 21:34] LABS: Albumin 3.4 g/dL (3.5-5.0); Calcium 8.7 mg/dL (8.4-10.2); Potassium 4.3 mmol/L (3.5-5.1); Total Bilirubin 0.7 mg/dL (0.2-1.3); Total Protein 6.5 g/dL (6.3-8.2)
[2021-05-07 21:35] LABS: Appearance,Urine Clear (Clear); Bilirubin,Urine Negative (Negative); Blood,Urine Negative (Negative); Color,Urine Yellow; Glucose,Urine (UA) Negative (Negative); Ketones,Urine Negative (Negative); Leukocyte Esterase,Urine Negative (Negative); Nitrite,Urine Negative (Negative); PH, Urine 7.5 (5.0-8.0); Protein,Urine Trace (Negative); Specific Gravity,Urine 1.018 (1.001-1.035)
[2021-05-07] MEDS: SODIUM CHLORIDE 0.9% 500 ML 500 ML IV SCH ×2 (21:36→21:40)
--- NOTE | 2021-05-07 22:16 | XR ---
EXAMINATION TYPE: XR chest 2V DATE OF EXAM: 05/07/2021 COMPARISON: 04/26/2016 HISTORY: Fever TECHNIQUE: FINDINGS: Heart is normal. Lungs are clear of consolidation. There are no hilar masses. There is no h eart failure. There is left axillary pacemaker. There are chest leads. Bony thorax appears intact. IMPRESSION: Normal chest. No evidence of bronchopneumonia. No change.
[2021-05-07] MEDS ORDERED: CEFEPIME 2 GM in SODIUM CHLORIDE 0.9% 100 ML IVPB STA (22:57)
[2021-05-07] MEDS ORDERED: VANCOMYCIN IV PER PHARMACY 1 EACH MISC MISCELLANE PRN (22:57)
[2021-05-07] MEDS ORDERED: NALOXONE 0.4 MG/ML 1 ML VIAL IV PRN (22:58)
[2021-05-08] MEDS: SODIUM CHLORIDE 0.9% 1,000 ML IV SCH ×4 (00:31→23:31)
[2021-05-08] MEDS ORDERED: ONDANSETRON 4 MG/2 ML VIAL IVP PRN (00:39)
[2021-05-08] MEDS ORDERED: VANCOMYCIN 1,250 MG in SODIUM CHLORIDE 0.9% 250 ML IVPB ONE (01:00)
[2021-05-08] MEDS: LEVOTHYROXINE 75 MCG TAB PO SCH (06:13)
[2021-05-08 07:10] LABS: HCT 31.8 % (39.0-53.0); HGB 11.2 gm/dL (13.0-17.5); MCH 35.6 pg (25.0-35.0); MCHC 35.1 g/dL (31.0-37.0); MCV 101.5 fL (80.0-100.0); Macrocytosis Slight; Mean Platelet Volume 7.4; Platelet Count 276 k/uL (150-450); RBC 3.13 m/uL (4.30-5.90); RDW 13.5 % (11.5-15.5)
[2021-05-08 07:28] LABS: ALT 10 U/L (4-49); AST 22 U/L (17-59); African American GFR (CKD) >90 (>60 ml/min/1.73 sqM); Albumin 3.2 g/dL (3.5-5.0); Alkaline Phosphatase 69 U/L (38-126); Anion Gap 7 mmol/L; Bilirubin,Unconjugated 0.4 mg/dL (0.0-1.1); Blood Urea Nitrogen 14 mg/dL (9-20); Calcium 8.8 mg/dL (8.4-10.2); Carbon Dioxide 26 mmol/L (22-30); Chloride 106 mmol/L (98-107); Globulin 3.2 g/dL; Glucose 97 mg/dL (74-99); Magnesium 1.9 mg/dL (1.6-2.3); Non-African American GFR(CKD) 79 (>60 ml/min/1.73 sqM); Potassium 4.1 mmol/L (3.5-5.1); Sodium 139 mmol/L (137-145); Total Bilirubin 0.6 mg/dL (0.2-1.3); Total Protein 6.4 g/dL (6.3-8.2)
[2021-05-08] MEDS: CEFEPIME 2 GM in SODIUM CHLORIDE 0.9% 100 ML IVPB SCH ×3 (07:49→23:31)
[2021-05-08 07:50] LABS: Neutrophils % (M) 6 %
[2021-05-08] MEDS: ATORVASTATIN 80 MG TAB PO SCH (07:50)
[2021-05-08] MEDS: HEPARIN SODIUM,PORCINE/PF 5,000 UNIT/0.5 ML SYRINGE SQ SCH ×2 (07:50→20:12)
[2021-05-08] MEDS: levETIRAcetam 500 MG TAB PO SCH ×2 (07:50→20:11)
[2021-05-08] MEDS: CHOLECALCIFEROL 25 MCG (1000 IU) TABLET PO SCH (07:51)
[2021-05-08] MEDS: CYANOCOBALAMIN 500 MCG TAB PO SCH (07:51)
[2021-05-08] MEDS: ACYCLOVIR 200 MG CAP PO SCH ×2 (07:51→20:11)
[2021-05-08] MEDS: CLOPIDOGREL 75 MG TAB PO SCH (07:52)
[2021-05-08 07:56] LABS: Basophils # (M) 0.02 k/uL (0-0.2); Eosinophils # (M) 0.39 k/uL (0-0.7); Lymphocytes # (M) 0.41 k/uL (1.0-4.8); Monocytes # (M) 0.12 k/uL (0-1.0); Neutrophils # (M) 0.06 k/uL (1.3-7.7); Nucleated Red Blood Cells 0 /100 WBC (0-0); Total Cells Counted 100
[2021-05-08] MEDS: NYSTATIN 100,000 UNIT/ML SUSP 500,000 UNIT/5 ML CUP PO SCH ×4 (08:00→21:38)
[2021-05-08] MEDS: HYDROCORTISONE 1% CREAM 30 GM TUBE TOPICAL SCH ×2 (08:00→20:13)
[2021-05-08] MEDS: MIDODRINE 5 MG TAB PO SCH (08:00)
[2021-05-08] MEDS ORDERED: hydrOXYzine HCL 10 MG TAB PO PRN (09:00)
[2021-05-08] MEDS ORDERED: FAMOTIDINE 20 MG/2 ML VIAL IV SCH (09:00)
[2021-05-08] MEDS ORDERED: LOSARTAN 25 MG TAB PO SCH (09:00)
--- NOTE | 2021-05-08 11:49 | P.HPIM ---
History of Present Illness Patient is a pleasant 80-year-old male came in with either patient is found to have neutropenic fever. Patient does have history of mantle cell lymphoma for which patient is receiving chemotherapy patient received second cycle of chemo out of for total 6 cycles. Patient received chemotherapy lower 2 weeks ago. Patient denied any dysuria denied any cough chest x-ray is within normal limits. Did not show any significant abnormality patient denied any diarrhea R any other symptoms. Patient the only complaint was he gets itchy after chemotherapy. Patient denied any nausea vomiting. REVIEW OF SYSTEMS: CONSTITUTIONAL: No fever, no malaise, no fatigue. HEENT: No recent visual problems or hearing problems. Denied any sore throat. CARDIOVASCULAR: No chest pain, orthopnea, PND, no palpitations, no syncope. PULMONARY: No shortness of breath, no cough, no hemoptysis. GASTROINTESTINAL: No diarrhea, no nausea, no vomiting, no abdominal pain. NEUROLOGICAL: No headaches, no weakness, no numbness. HEMATOLOGICAL: Denies any bleeding or petechiae. GENITOURINARY: Denies any burning micturition, frequency, or urgency. MUSCULOSKELETAL/RHEUMATOLOGICAL: Denies any joint pain, swelling, or any muscle pain. ENDOCRINE: Denies any polyuria or polydipsia. The rest of the 14-point review of systems is negative. PHYSICAL EXAMINATION: GENERAL: The patient is alert and oriented x3, not in any acute distress. Well developed, well nourished. HEENT: Pupils are round and equally reacting to light. EOMI. No scleral icterus. No conjunctival pallor. Normocephalic, atraumatic. No pharyngeal erythema. No thyromegaly. CARDIOVASCULAR: S1 and S2 present. No murmurs, rubs, or gallops. PULMONARY: Chest is clear to auscultation, no wheezing or crackles. ABDOMEN: Soft, nontender, nondistended, normoactive bowel sounds. No palpable organomegaly. MUSCULOSKELETAL: No joint swelling or deformity. EXTREMITIES: No cyanosis, clubbing, or pedal edema. NEUROLOGICAL: Gross neurological examination did not reveal any focal deficits. SKIN: No rashes. Assessment and plan - neutropenic fevers source is not clear: Is presently on cefepime and vancomycin which will be continued infectious disease and oncology will evaluate the patient -Mantle cell lymphoma receiving chemotherapy neutropenic at this time --History of liver dementia -Parkinson's - hypertension -Hyperlipidemia -hypothyroidism For above-mentioned chronic medical problems patient will be resumed on appropriate home medications DVT prophylaxis: Subcutaneous heparin Past Medical History Past Medical History: Thyroid Disorder Additional Past Medical History / Comment(s): LBBB, hx gout, occ problem with balance, swollen hand from wasp sting, vertigo, lymphoma Last Myocardial Infarction Date:: 2012 History of Any Multi-Drug Resistant Organisms: None Reported Past Surgical History: Heart Catheterization With Stent, Orthopedic Surgery, Pacemaker Additional Past Surgical History / Comment(s): total 4 stents, removal of salivary gland and lymph node, cataracts, left knee arthroscopy Past Anesthesia/Blood Transfusion Reactions: Motion Sickness Date of Last Stent Placement:: 2012 Type of Cardiac Device: Permanent Pacemaker Device Placement Date:: 2012 Past Psychological History: No Psychological Hx Reported Smoking Status: Never smoker Past Alcohol Use History: None Reported Past Drug Use History: None Reported - Past Family History Mother Family Medical History: Cancer Sister(s) Family Medical History: Cancer Medications and Allergies Home Medications Medication Instructions Recorded Confirmed Type Atorvastatin [Lipitor] 80 mg PO DAILY 05/30/15 05/07/21 History Clopidogrel Bisulfate [Plavix] 75 mg PO DAILY 05/30/15 05/07/21 History Losartan [Cozaar] 12.5 mg PO DAILY 05/30/15 05/07/21 History Midodrine HCl [ProAmatine] 2.5 mg PO DAILY 05/30/15 05/07/21 History Acyclovir 400 mg PO BID 05/07/21 05/07/21 History Cholecalciferol [Vitamin D3 (25 50 mcg PO DAILY 05/07/21 05/07/21 History Mcg = 1000 Iu)] Cyanocobalamin (Vitamin B-12) 1,000 mcg PO DAILY 05/07/21 05/07/21 History [Vitamin B-12] Hydrocortisone Oint 1 applic TOPICAL BID 05/07/21 05/07/21 History [Hydrocortisone 2.5% Oint] Levofloxacin [Levaquin] 500 mg PO DAILY 05/07/21 05/07/21 History Levothyroxine Sodium [Synthroid] 75 mcg PO DAILY 05/07/21 05/07/21 History Nystatin 100,000 Unit/ml Susp 4 ml PO QID 05/07/21 05/07/21 History [Mycostatin Oral Susp] hydrOXYzine HCL 20 mg PO BID PRN 05/07/21 05/07/21 History levETIRAcetam [Keppra] 1,000 mg PO BID 05/07/21 05/07/21 History ondansetron HCL [Zofran] 8 mg PO Q6H PRN 05/07/21 05/07/21 History Allergies Allergy/AdvReac Type Severity Reaction Status Date / Time No Known Allergies Allergy Verified 05/07/21 22:41 Physical Exam Vitals: Vital Signs Temp Pulse Pulse Resp BP BP Pulse Ox 05/08/21 07:17 100.2 F H 05/08/21 05:22 98.1 F 62 18 115/63 98 05/08/21 00:43 98.2 F 64 18 98/63 95 05/08/21 00:16 99.1 F 55 L 16 109/54 95 05/07/21 20:16 100.5 F H 100 19 130/72 99 Intake and Output 05/07/21 05/08/21 05/08/21 22:59 06:59 14:59 Intake Total 375 Output Total 525 Balance 375 -525 Intake: Oral 375 Output: Urine 525 Other: # Voids 2 Weight 68.039 kg 71.5 kg Results CBC & Chem 7: 05/08/21 06:54 05/08/21 06:54 Labs: Abnormal Lab Results - Last 24 Hours (Table) 05/07/21 05/07/21 05/07/21 Range/Units 21:01 21:01 21:01 WBC 0.8 L* (3.8-10.6) k/uL RBC 2.82 L (4.30-5.90) m/uL Hgb 10.1 L (13.0-17.5) gm/dL Hct 28.2 L (39.0-53.0) % MCV 100.3 H (80.0-100.0) fL MCH 35.9 H (25.0-35.0) pg Neutrophils # (Manual) (1.3-7.7) k/uL Lymphocytes # (Manual) (1.0-4.8) k/uL Sodium 131 L (137-145) mmol/L Albumin 3.4 L (3.5-5.0) g/dL Urine Protein Trace H (Negative) 05/08/21 05/08/21 Range/Units 06:54 06:54 WBC 1.0 L* (3.8-10.6) k/uL RBC 3.13 L (4.30-5.90) m/uL Hgb 11.2 L (13.0-17.5) gm/dL Hct 31.8 L (39.0-53.0) % MCV 101.5 H (80.0-100.0) fL MCH 35.6 H (25.0-35.0) pg Neutrophils # (Manual) 0.06 L* (1.3-7.7) k/uL Lymphocytes # (Manual) 0.41 L (1.0-4.8) k/uL Sodium (137-145) mmol/L Albumin 3.2 L (3.5-5.0) g/dL Urine Protein (Negative) Thrombosis Risk Factor Assmnt - Choose All That Apply Any of the Below Risk Factors Present?: No Other Risk Factors: Yes Each Risk Factor Represents 3 Points: Age 75 years or older Other congenital or acquired thrombophilia - If yes, enter type in comment: No Thrombosis Risk Factor Assessment Total Risk Factor Score: 3 Thrombosis Risk Factor Assessment Level: Moderate Risk
[2021-05-08 12:58] VITALS: BMI 21.9
[2021-05-08] MEDS: VANCOMYCIN 1,250 MG in SODIUM CHLORIDE 0.9% 250 ML IVPB SCH (13:00)
--- NOTE | 2021-05-08 15:20 | P.CONS ---
History of Present Illness - Reason for Consult Consult date: 05/08/21 Neutropenia Fever Requesting physician: Lucy Jason - Chief Complaint Fever - History of Present Illness Mr Castellon is a pleasant white male, with multiple but well-controlled medical problems. He was in his usual state of health until about 08/22. At that time the patient developed multiple GI complaints including bloating, intermittent cramping, and also diarrhea ranging from 5 up to 12 bowel movements per day. He also had alternating periods of constipation. These symptoms persisted and progressed. Associated symptoms included weight loss of about 30 pounds plus, as well as loss of muscle mass and generalized weakness. The patient was seen by gastroenterology, Dr. Gibbs, and had a colonoscopy as well as EGD on 02/18/21. Biopsies were taken from multiple sites including gastric antrum, duodenum, esophagus and terminal ileum as well as right and left colon and rectum. All these areas showed involvement with dense atypical lymphocytic infiltrate with features consistent with mantle cell lymphoma. The case was discussed with gastroenterology, and the patient was referred here. He denied any prior history of malignancy. PET CT revealed extensive adenopathy above and below the diaphragm, especially in the meseneteric nodes. The pt was recommended treatment with Bendamustine - Rituxan. He started that on 03/19/21 and is s/p 2 cycles. 03/26/21-First treatment of Rituxan and Treanda Last visity he developed an extensive, pruritic rash in the axillary area, which has resolved. he has intermittent swelling of the RLE, with dopplers on 03/27/21 negative He was seen in office on 05/07/21: He was afebrile at that time but did complain of subjective fevers. Cycle two of treatment on 04/13/2021. The systemic arms and thorax rash is worse, itching. He was neutropenic at time of visit and was given prophylaxic levaquin, acyclovir and anti-fungal although he was advised if fever went up again to be seen in emergency, which he did. He has had full garcia cultures and started on broad spectrum antibiotics. Rash ?disseminated shingles versus staph infection versus inflammatory reaction to antibody therapy. ID is following. Growth Factor initiated Review of Systems All systems: negative Constitutional: Reports as per HPI Past Medical History Past Medical History: Thyroid Disorder Additional Past Medical History / Comment(s): LBBB, hx gout, occ problem with balance, swollen hand from wasp sting, vertigo, lymphoma Last Myocardial Infarction Date:: 2012 History of Any Multi-Drug Resistant Organisms: None Reported Past Surgical History: Heart Catheterization With Stent, Orthopedic Surgery, Pacemaker Additional Past Surgical History / Comment(s): total 4 stents, removal of salivary gland and lymph node, cataracts, left knee arthroscopy Past Anesthesia/Blood Transfusion Reactions: Motion Sickness Date of Last Stent Placement:: 2012 Type of Cardiac Device: Permanent Pacemaker Device Placement Date:: 2012 Past Psychological History: No Psychological Hx Reported Smoking Status: Never smoker Past Alcohol Use History: None Reported Past Drug Use History: None Reported - Past Family History Mother Family Medical History: Cancer Sister(s) Family Medical History: Cancer Medications and Allergies Home Medications Medication Instructions Recorded Confirmed Type Atorvastatin [Lipitor] 80 mg PO DAILY 05/30/15 05/07/21 History Clopidogrel Bisulfate [Plavix] 75 mg PO DAILY 05/30/15 05/07/21 History Losartan [Cozaar] 12.5 mg PO DAILY 05/30/15 05/07/21 History Midodrine HCl [ProAmatine] 2.5 mg PO DAILY 05/30/15 05/07/21 History Acyclovir 400 mg PO BID 05/07/21 05/07/21 History Cholecalciferol [Vitamin D3 (25 50 mcg PO DAILY 05/07/21 05/07/21 History Mcg = 1000 Iu)] Cyanocobalamin (Vitamin B-12) 1,000 mcg PO DAILY 05/07/21 05/07/21 History [Vitamin B-12] Hydrocortisone Oint 1 applic TOPICAL BID 05/07/21 05/07/21 History [Hydrocortisone 2.5% Oint] Levofloxacin [Levaquin] 500 mg PO DAILY 05/07/21 05/07/21 History Levothyroxine Sodium [Synthroid] 75 mcg PO DAILY 05/07/21 05/07/21 History Nystatin 100,000 Unit/ml Susp 4 ml PO QID 05/07/21 05/07/21 History [Mycostatin Oral Susp] hydrOXYzine HCL 20 mg PO BID PRN 05/07/21 05/07/21 History levETIRAcetam [Keppra] 1,000 mg PO BID 05/07/21 05/07/21 History ondansetron HCL [Zofran] 8 mg PO Q6H PRN 05/07/21 05/07/21 History Allergies Allergy/AdvReac Type Severity Reaction Status Date / Time No Known Allergies Allergy Verified 05/07/21 22:41 Physical Exam Vitals: Vital Signs Temp Pulse Pulse Resp BP BP Pulse Ox 05/08/21 07:17 100.2 F H 05/08/21 05:22 98.1 F 62 18 115/63 98 05/08/21 00:43 98.2 F 64 18 98/63 95 05/08/21 00:16 99.1 F 55 L 16 109/54 95 05/07/21 20:16 100.5 F H 100 19 130/72 99 Intake and Output 05/07/21 05/08/21 05/08/21 22:59 06:59 14:59 Intake Total 375 Balance 375 Intake: Oral 375 Other: # Voids 2 Weight 68.039 kg 71.5 kg - Constitutional General appearance: cooperative, no acute distress - EENT Eyes: EOMI, PERRLA ENT: hard of hearing, NA/AT - Neck Neck: normal ROM - Respiratory Respiratory: bilateral: diminished - Cardiovascular Rhythm: regularly irregular leg Peripheral Edema: right: 3+ - Gastrointestinal General gastrointestinal: normal bowel sounds, tenderness - Integumentary Bilateral arms, hands and legs raised papule dry skin raash Integumentary: pale - Neurologic Neurologic: CNII-XII intact - Musculoskeletal Musculoskeletal: generalized weakness, strength equal bilaterally Results CBC & Chem 7: 05/08/21 06:54 05/08/21 06:54 Labs: Abnormal Lab Results - Last 24 Hours (Table) 05/07/21 05/07/21 05/07/21 Range/Units 21:01 21:01 21:01 WBC 0.8 L* (3.8-10.6) k/uL RBC 2.82 L (4.30-5.90) m/uL Hgb 10.1 L (13.0-17.5) gm/dL Hct 28.2 L (39.0-53.0) % MCV 100.3 H (80.0-100.0) fL MCH 35.9 H (25.0-35.0) pg Sodium 131 L (137-145) mmol/L Albumin 3.4 L (3.5-5.0) g/dL Urine Protein Trace H (Negative) 05/08/21 05/08/21 Range/Units 06:54 06:54 WBC 1.0 L* (3.8-10.6) k/uL RBC 3.13 L (4.30-5.90) m/uL Hgb 11.2 L (13.0-17.5) gm/dL Hct 31.8 L (39.0-53.0) % MCV 101.5 H (80.0-100.0) fL MCH 35.6 H (25.0-35.0) pg Sodium (137-145) mmol/L Albumin 3.2 L (3.5-5.0) g/dL Urine Protein (Negative) Chest x-ray: report reviewed Assessment and Plan (1) Mantle cell lymphoma Current Visit: Yes Status: Acute Code(s): C83.10 - MANTLE CELL LYMPHOMA, UNSPECIFIED SITE SNOMED Code(s): 407350406 (2) Rash and nonspecific skin eruption Current Visit: Yes Status: Acute Code(s): R21 - RASH AND OTHER NONSPECIFIC SKIN ERUPTION SNOMED Code(s): 723748627 (3) Neutropenic fever Current Visit: Yes Status: Acute Code(s): D70.9 - NEUTROPENIA, UNSPECIFIED; R50.81 - FEVER PRESENTING WITH CONDITIONS CLASSIFIED ELSEWHERE SNOMED Code(s): 143686797 Plan: Assessment and Recommendations: Mantel Cell Lymphoma: - Status Post Cycle 2 BR - Growth factor added to remaining cycles - Hold next until resolution if infectious cause found Neutropenic Fever: - Low grade 100.5 (documented) per patient up to 102 at home - Garcia cultures pending - ?Tumor fever (Check for lysis) - Skin Eruptions:? - ID Following - Broad spectrum antibiotics to continue Physician attest: I have completed the full history and physical and agree with above dictation, dictated as a ascribe.
[2021-05-08] MEDS: FILGRASTIM-SNDZ 480 MCG/0.8 ML SYRINGE SQ SCH (17:45)
[2021-05-08] MEDS: FAMOTIDINE 20 MG TAB PO SCH (20:11)
[2021-05-08] MEDS: diphenhydrAMINE 25 MG CAP PO PRN (20:11)
[2021-05-09] MEDS: VANCOMYCIN 1,250 MG in SODIUM CHLORIDE 0.9% 250 ML IVPB SCH ×2 (02:34→15:32)
[2021-05-09] MEDS: LEVOTHYROXINE 75 MCG TAB PO SCH (05:36)
[2021-05-09 07:09] LABS: HCT 28.9 % (39.0-53.0); HGB 9.9 gm/dL (13.0-17.5); MCH 34.9 pg (25.0-35.0); MCHC 34.2 g/dL (31.0-37.0); Macrocytosis Slight; Mean Platelet Volume 6.6; Platelet Count 286 k/uL (150-450); RBC 2.84 m/uL (4.30-5.90); RDW 14.1 % (11.5-15.5)
[2021-05-09 07:28] LABS: WBC 0.9 k/uL (3.8-10.6)
[2021-05-09] MEDS: CYANOCOBALAMIN 500 MCG TAB PO SCH (08:03)
[2021-05-09] MEDS: levETIRAcetam 500 MG TAB PO SCH ×2 (08:04→19:52)
[2021-05-09] MEDS: ACYCLOVIR 200 MG CAP PO SCH (08:04)
[2021-05-09] MEDS: ATORVASTATIN 80 MG TAB PO SCH (08:04)
[2021-05-09] MEDS: CLOPIDOGREL 75 MG TAB PO SCH (08:04)
[2021-05-09] MEDS: FAMOTIDINE 20 MG TAB PO SCH ×2 (08:04→19:53)
[2021-05-09] MEDS: MIDODRINE 5 MG TAB PO SCH (08:05)
[2021-05-09] MEDS: HEPARIN SODIUM,PORCINE/PF 5,000 UNIT/0.5 ML SYRINGE SQ SCH ×2 (08:05→19:53)
[2021-05-09] MEDS: CHOLECALCIFEROL 25 MCG (1000 IU) TABLET PO SCH (08:05)
[2021-05-09] MEDS: NYSTATIN 100,000 UNIT/ML SUSP 500,000 UNIT/5 ML CUP PO SCH ×4 (08:07→21:20)
[2021-05-09] MEDS: CEFEPIME 2 GM in SODIUM CHLORIDE 0.9% 100 ML IVPB SCH ×2 (08:30→16:53)
--- NOTE | 2021-05-09 09:59 | P.PN ---
Subjective Progress Note Date: 05/09/21 Principal diagnosis: WBC still decreased. Acyclovir increased potential shingles Patient laying in bed, states he is feeling a bit better. WBC and ANC remain low despite growth factor. Objective - Vital Signs Vital signs: Vital Signs Temp 99.6 F 05/09/21 04:11 Pulse 60 05/09/21 04:11 Resp 16 05/09/21 04:11 BP 118/56 05/09/21 04:11 Pulse Ox 95 05/09/21 04:11 Intake & Output 05/08/21 05/09/21 05/09/21 18:59 06:59 18:59 Intake Total 1250 Output Total 1100 550 Balance -1100 700 Weight 71.5 kg Intake: Intake, IV Titration 1250 Amount Cefepime 2 gm In Sodium 100 Chloride 0.9% 100 ml @ 25 mls/hr IVPB Q8HR [facility] Rx# :[id number] Sodium Chloride 0.9% 1, 900 000 ml @ 100 mls/hr IV . Q10H [facility] Rx#:[id number] Vancomycin 1,250 mg In 250 Sodium Chloride 0.9% 250 ml @ 125 mls/hr IVPB Q12H [facility] Rx#:[id number] Output: Urine 1100 550 - Exam - Constitutional General appearance: cooperative, no acute distress - EENT Eyes: EOMI, PERRLA ENT: hard of hearing, NA/AT - Neck Neck: normal ROM - Respiratory Respiratory: bilateral: diminished - Cardiovascular Rhythm: regularly irregular leg Peripheral Edema: right: 3+ - Gastrointestinal General gastrointestinal: normal bowel sounds, tenderness - Integumentary Bilateral arms, hands and legs raised papule dry skin raash Integumentary: pale - Neurologic Neurologic: CNII-XII intact - Musculoskeletal Musculoskeletal: generalized weakness, strength equal bilaterally - Labs CBC & Chem 7: 05/09/21 06:29 05/09/21 06:29 Labs: Abnormal Lab Results - Last 24 Hours (Table) 05/08/21 05/09/21 Range/Units 06:54 06:29 WBC 0.9 L* (3.8-10.6) k/uL RBC 2.84 L (4.30-5.90) m/uL Hgb 9.9 L (13.0-17.5) gm/dL Hct 28.9 L (39.0-53.0) % MCV 102.0 H (80.0-100.0) fL Procalcitonin 0.11 H (0.02-0.09) ng/mL Microbiology - Last 24 Hours (Table) 05/07/21 22:39 Blood Culture - Preliminary Blood No Growth after 24 hours Assessment and Plan (1) Mantle cell lymphoma Current Visit: Yes Status: Acute Code(s): C83.10 - MANTLE CELL LYMPHOMA, UNSPECIFIED SITE SNOMED Code(s): 635560849 (2) Rash and nonspecific skin eruption Current Visit: Yes Status: Acute Code(s): R21 - RASH AND OTHER NONSPECIFIC SKIN ERUPTION SNOMED Code(s): 605034520 (3) Neutropenic fever Current Visit: Yes Status: Acute Code(s): D70.9 - NEUTROPENIA, UNSPECIFIED; R50.81 - FEVER PRESENTING WITH CONDITIONS CLASSIFIED ELSEWHERE SNOMED Code(s): 761959553 Plan: Assessment and Recommendations: Mantel Cell Lymphoma: - Status Post Cycle 2 BR - Growth factor added to remaining cycles - Hold next until resolution if infectious cause found Neutropenic Fever: - improving - Ho cultures pending - ?Tumor fever (Check for lysis) - Skin Eruptions:? Viral hsv? = acyclorir - ID Following - Broad spectrum antibiotics to continue - continue growth factor Increase Activity Incenstive Spirometer and PT/OT DIeticien for decreased albumin and PO intake
[2021-05-09 10:05] LABS: African American GFR (CKD) 82.6 (60.0-200.0); Anion Gap 2.9 mmol/L (4.00-12.00); Calcium 8.4 mg/dL (8.7-10.3); Carbon Dioxide 28.1 mmol/L (21.6-31.8); Magnesium 1.6 mg/dL (1.5-2.4); Non-African American GFR(CKD) 71.3 (60.0-200.0); Potassium 4.4 mmol/L (3.5-5.5)
[2021-05-09 10:44] LABS: Albumin 2.7 g/dL (3.5-5.0); Albumin/Globulin Ratio 0.9; Globulin 2.9 g/dL; Total Bilirubin 0.7 mg/dL (0.2-1.3); Total Protein 5.6 g/dL (6.3-8.2); Uric Acid 3.9 mg/dL (3.5-8.5)
[2021-05-09] MEDS: diphenhydrAMINE 25 MG CAP PO PRN (12:01)
[2021-05-09] MEDS: HYDROCORTISONE 1% CREAM 30 GM TUBE TOPICAL SCH ×2 (12:02→19:53)
[2021-05-09] MEDS: SODIUM CHLORIDE 0.9% 1,000 ML IV SCH (12:03)
[2021-05-09] MEDS ORDERED: VANCOMYCIN TROUGH DUE 1 EACH MISC MISCELLANE ONE (13:00)
--- NOTE | 2021-05-09 13:21 | P.PN ---
Subjective atient is a pleasant 80-year-old male came in with either patient is found to have neutropenic fever. Patient does have history of mantle cell lymphoma for which patient is receiving chemotherapy patient received second cycle of chemo out of for total 6 cycles. Patient received chemotherapy lower 2 weeks ago. Patient denied any dysuria denied any cough chest x-ray is within normal limits. Did not show any significant abnormality patient denied any diarrhea R any other symptoms. Patient the only complaint was he gets itchy after chemother apy. Patient denied any nausea vomiting. 05/09/2021 Patient still has a fevers although overall the improved. Patient will be continued on broad-spectrum antibiotics. Antiviral dose was increased because of worsening rash. PHYSICAL EXAMINATION: GENERAL: The patient is alert and oriented x3, not in any acute distress. Well developed, well nourished. HEENT: Pupils are round and equally reacting to light. EOMI. No scleral icterus. No conjunctival pallor. Normocephalic, atraumatic. No pharyngeal erythema. No thyromegaly. CARDIOVASCULAR: S1 and S2 present. No murmurs, rubs, or gallops. PULMONARY: Chest is clear to auscultation, no wheezing or crackles. ABDOMEN: Soft, nontender, nondistended, normoactive bowel sounds. No palpable organomegaly. MUSCULOSKELETAL: No joint swelling or deformity. EXTREMITIES: No cyanosis, clubbing, or pedal edema. NEUROLOGICAL: Gross neurological examination did not reveal any focal deficits. SKIN: No rashes. Assessment and plan - neutropenic fevers source is not clear: Is presently on cefepime and vancomycin which will be continued infectious disease and oncology will evaluate the patient -Mantle cell lymphoma receiving chemotherapy neutropenic at this time --History of Lewy body dementia -Parkinson's - hypertension -Hyperlipidemia -hypothyroidism For above-mentioned chronic medical problems patient will be continued on appropriate home medications DVT prophylaxis: Subcutaneous heparin Objective - Vital Signs Vital signs: Vital Signs Temp 98.2 F 05/09/21 12:53 Pulse 62 05/09/21 12:53 Resp 17 05/09/21 12:53 BP 113/65 05/09/21 12:53 Pulse Ox 99 05/09/21 12:53 Intake & Output 05/08/21 05/09/21 05/09/21 18:59 06:59 18:59 Intake Total 1250 Output Total 1100 550 Balance -1100 700 Weight 71.5 kg Intake: Intake, IV Titration 1250 Amount Cefepime 2 gm In Sodium 100 Chloride 0.9% 100 ml @ 25 mls/hr IVPB Q8HR [facility] Rx# :[id number] Sodium Chloride 0.9% 1, 900 000 ml @ 100 mls/hr IV . Q10H [facility] Rx#:[id number] Vancomycin 1,250 mg In 250 Sodium Chloride 0.9% 250 ml @ 125 mls/hr IVPB Q12H [facility] Rx#:[id number] Output: Urine 1100 550 - Labs CBC & Chem 7: 05/09/21 06:29 05/09/21 06:29 Labs: Abnormal Lab Results - Last 24 Hours (Table) 05/08/21 05/09/21 05/09/21 Range/Units 06:54 06:29 06:29 WBC 0.9 L* (3.8-10.6) k/uL RBC 2.84 L (4.30-5.90) m/uL Hgb 9.9 L (13.0-17.5) gm/dL Hct 28.9 L (39.0-53.0) % MCV 102.0 H (80.0-100.0) fL Sodium 134 L (135-145) mmol/L Anion Gap 2.90 L (4.00-12.00) mmol/L Calcium 8.4 L (8.7-10.3) mg/dL Total Protein 5.6 L (6.3-8.2) g/dL Albumin 2.7 L (3.5-5.0) g/dL Procalcitonin 0.11 H (0.02-0.09) ng/mL Microbiology - Last 24 Hours (Table) 05/07/21 22:39 Blood Culture - Preliminary Blood No Growth after 24 hours
[2021-05-09] MEDS: ACYCLOVIR SODIUM 500 MG in SODIUM CHLORIDE 0.9% 100 ML IVPB SCH ×2 (15:17→23:23)
--- NOTE | 2021-05-09 15:28 | P.CONS ---
History of Present Illness - Reason for Consult Consult date: 05/08/21 Neutropenic fever Requesting physician: Lucy Jason - Chief Complaint Fever 5 days - History of Present Illness Patient is a 80-year-old male with a past medical history significant for mantle cell lymphoma of the GI tract, patient did have PET/CT with extensive adenopathy above and below the diaphragm patient was started on chemotherapy started on 03/19/2021 and has received 2 cycles, patient presented to the [facility] ER last night for evaluation of fever up and it the patient been running fever for the last few days and the patient was noticed to be neutropenic with white count of 0.8 that wasn't an outpatient setting for the patient advised to go to the hospital patient did have a occasional headache no URI symptoms, patient denies having any chest pain shortness with minimal cough denies any nausea no vomiting and no abdominal pain or any diarrhea with the same the patient has been evaluated by the ER physician, on arrival to the ER the patient was afebrile patient was not tachycardic and no hypotension, patient did have a low white count of 0.8 with neutrophil count is 0.06, patient did have normal kidney function and liver enzymes are normal, UA was negative chest x-ray was negative for any pneumonia patient has been admitted to the hospital patient was started on cefepime and vancomycin and infectious disease was con sulted for further management of antibiotic therapy patient did have a rash to the upper body however the patient denies any worsening of the rash no vesicle formation no itching or pain associated with it Review of Systems Positive point has been mentioned in the HPI rest of the systems are negative Past Medical History Past Medical History: Thyroid Disorder Additional Past Medical History / Comment(s): LBBB, hx gout, occ problem with balance, swollen hand from wasp sting, vertigo, lymphoma Last Myocardial Infarction Date:: 2012 History of Any Multi-Drug Resistant Organisms: None Reported Past Surgical History: Heart Catheterization With Stent, Orthopedic Surgery, Pacemaker Additional Past Surgical History / Comment(s): total 4 stents, removal of salivary gland and lymph node, cataracts, left knee arthroscopy Past Anesthesia/Blood Transfusion Reactions: Motion Sickness Date of Last Stent Placement:: 2012 Type of Cardiac Device: Permanent Pacemaker Device Placement Date:: 2012 Past Psychological History: No Psychological Hx Reported Smoking Status: Never smoker Past Alcohol Use History: None Reported Past Drug Use History: None Reported - Past Family History Mother Family Medical History: Cancer Sister(s) Family Medical History: Cancer Medications and Allergies Home Medications Medication Instructions Recorded Confirmed Type Atorvastatin [Lipitor] 80 mg PO DAILY 05/30/15 05/07/21 History Clopidogrel Bisulfate [Plavix] 75 mg PO DAILY 05/30/15 05/07/21 History Losartan [Cozaar] 12.5 mg PO DAILY 05/30/15 05/07/21 History Midodrine HCl [ProAmatine] 2.5 mg PO DAILY 05/30/15 05/07/21 History Acyclovir 400 mg PO BID 05/07/21 05/07/21 History Cholecalciferol [Vitamin D3 (25 50 mcg PO DAILY 05/07/21 05/07/21 History Mcg = 1000 Iu)] Cyanocobalamin (Vitamin B-12) 1,000 mcg PO DAILY 05/07/21 05/07/21 History [Vitamin B-12] Hydrocortisone Oint 1 applic TOPICAL BID 05/07/21 05/07/21 History [Hydrocortisone 2.5% Oint] Levofloxacin [Levaquin] 500 mg PO DAILY 05/07/21 05/07/21 History Levothyroxine Sodium [Synthroid] 75 mcg PO DAILY 05/07/21 05/07/21 History Nystatin 100,000 Unit/ml Susp 4 ml PO QID 05/07/21 05/07/21 History [Mycostatin Oral Susp] hydrOXYzine HCL 20 mg PO BID PRN 05/07/21 05/07/21 History levETIRAcetam [Keppra] 1,000 mg PO BID 05/07/21 05/07/21 History ondansetron HCL [Zofran] 8 mg PO Q6H PRN 05/07/21 05/07/21 History Allergies Allergy/AdvReac Type Severity Reaction Status Date / Time No Known Allergies Allergy Verified 05/07/21 22:41 Physical Exam Vitals: Vital Signs Temp Pulse Pulse Resp BP BP Pulse Ox 05/08/21 12:10 99.8 F H 77 18 113/64 96 05/08/21 07:17 100.2 F H 05/08/21 05:22 98.1 F 62 18 115/63 98 05/08/21 00:43 98.2 F 64 18 98/63 95 05/08/21 00:16 99.1 F 55 L 16 109/54 95 05/07/21 20:16 100.5 F H 100 19 130/72 99 Intake and Output 05/08/21 05/08/21 05/08/21 06:59 14:59 22:59 Intake Total 375 Output Total 525 Balance 375 -525 Intake: Oral 375 Output: Urine 525 Other: # Voids 2 Weight 71.5 kg 71.5 kg GENERAL DESCRIPTION: Elderly male lying in bed, no distress. No tachypnea or accessory muscle of respiration use. HEENT: Shows Pallor , no scleral icterus. Oral mucous membrane is dry. No pharyngeal erythema or thrush NECK: Trachea central, no thyromegaly. LUNGS: Unlabored breathing. Decreased breath sounds at the base. No wheeze or crackle. HEART: S1, S2, regular rate and rhythm. No loud murmur ABDOMEN: Soft, no tenderness , guarding or rigidity, no organomegaly EXTREMITIES: No edema of feet. SKIN: mild nonspecific rash to the upper chest port site and no vesicle formation not typical for herpetic infection NEUROLOGICAL: The patient is awake, alert, oriented x3, mood and affect normal. Results CBC & Chem 7: 05/09/21 06:29 05/09/21 06:29 Labs: Abnormal Lab Results - Last 24 Hours (Table) 05/07/21 05/07/21 05/07/21 Range/Units 21:01 21:01 21:01 WBC 0.8 L* (3.8-10.6) k/uL RBC 2.82 L (4.30-5.90) m/uL Hgb 10.1 L (13.0-17.5) gm/dL Hct 28.2 L (39.0-53.0) % MCV 100.3 H (80.0-100.0) fL MCH 35.9 H (25.0-35.0) pg Neutrophils # (Manual) (1.3-7.7) k/uL Lymphocytes # (Manual) (1.0-4.8) k/uL Sodium 131 L (137-145) mmol/L Albumin 3.4 L (3.5-5.0) g/dL Procalcitonin (0.02-0.09) ng/mL Urine Protein Trace H (Negative) 05/08/21 05/08/21 05/08/21 Range/Units 06:54 06:54 06:54 WBC 1.0 L* (3.8-10.6) k/uL RBC 3.13 L (4.30-5.90) m/uL Hgb 11.2 L (13.0-17.5) gm/dL Hct 31.8 L (39.0-53.0) % MCV 101.5 H (80.0-100.0) fL MCH 35.6 H (25.0-35.0) pg Neutrophils # (Manual) 0.06 L* (1.3-7.7) k/uL Lymphocytes # (Manual) 0.41 L (1.0-4.8) k/uL Sodium (137-145) mmol/L Albumin 3.2 L (3.5-5.0) g/dL Procalcitonin 0.11 H (0.02-0.09) ng/mL Urine Protein (Negative) Assessment and Plan Assessment: 1-patient presented to hospital with fever in this patient currently do have evidence of neutropenia likely from his underlying chemotherapy that he is receiving for mantle cell lymphoma, patient currently do not have the obvious focus of infection with a negative chest x-ray urine is negative abdominal soft on clinical examination 2-mild nonspecific rash to the upper trunk clinically not behaving as herpetic and the patient did have shingles vaccine (1) Neutropenic fever Current Visit: Yes Status: Acute Code(s): D70.9 - NEUTROPENIA, UNSPECIFIED; R50.81 - FEVER PRESENTING WITH CONDITIONS CLASSIFIED ELSEWHERE SNOMED Code(s): 088929216 (2) Rash and nonspecific skin eruption Current Visit: Yes Status: Acute Code(s): R21 - RASH AND OTHER NONSPECIFIC SKIN ERUPTION SNOMED Code(s): 394794901 Plan: 1-patient to continue with cefepime 2 g every 8 hours and vancomycin while waiting for the culture finalized 2-no need for therapeutic dose for acyclovir We will follow on clinical condition and cultures to further adjust medication if needed Thank you for this consultation will follow this patient with you Time with Patient: Greater than 30
[2021-05-09] MEDS: FILGRASTIM-SNDZ 480 MCG/0.8 ML SYRINGE SQ SCH (16:54)
--- NOTE | 2021-05-09 17:11 | PN ---
PROGRESS NOTE DATE OF SERVICE: 05/09/2021 REASON FOR FOLLOWUP: Febrile neutropenia. INTERVAL HISTORY: The patient is afebrile. The patient is breathing comfortably. Minimal headache. No chest pain or shortness of breath. No abdominal pain. No diarrhea and no urinary symptoms. PHYSICAL EXAMINATION: Blood pressure 113/65, pulse of 72, temperature 98.9. He is 99% on room air. General description is an elderly male lying in bed in no distress. Respiratory system: Unlabored breathing, clear to auscultation anteriorly. Heart: S1, S2. Regular rate and rhythm. Abdomen soft, no tenderness. LABS: Hemoglobin 9.1, white count 0.9, creatinine 1.0. DIAGNOSTIC IMPRESSION AND PLAN: Patient with febrile neutropenia in this patient with no obvious focus. The patient is covered with cefepime and vancomycin that will be continued for now while waiting for the culture to finalize and monitor clinical course closely. MMODL / IJN: [id number] /
[2021-05-09] MEDS ORDERED: ACETAMINOPHEN TAB 325 MG TAB PO PRN (19:47)
[2021-05-10] MEDS: CEFEPIME 2 GM in SODIUM CHLORIDE 0.9% 100 ML IVPB SCH ×2 (01:14→10:12)
[2021-05-10] MEDS: VANCOMYCIN 1,250 MG in SODIUM CHLORIDE 0.9% 250 ML IVPB SCH (02:32)
[2021-05-10 04:45] LABS: HCT 26.6 % (39.0-53.0); HGB 9.3 gm/dL (13.0-17.5); RBC 2.61 m/uL (4.30-5.90)
[2021-05-10 04:46] LABS: MCH 35.5 pg (25.0-35.0); MCHC 34.8 g/dL (31.0-37.0); MCV 101.8 fL (80.0-100.0); Macrocytosis Slight; Mean Platelet Volume 7.7; Platelet Count 288 k/uL (150-450)
[2021-05-10 04:49] LABS: WBC 1.1 k/uL (3.8-10.6)
[2021-05-10] MEDS: LEVOTHYROXINE 75 MCG TAB PO SCH (05:49)
[2021-05-10 10:02] LABS: African American GFR (CKD) 82.6 (60.0-200.0); Anion Gap 5.6 mmol/L (4.00-12.00); Calcium 8.5 mg/dL (8.7-10.3); Carbon Dioxide 26.4 mmol/L (21.6-31.8); Non-African American GFR(CKD) 71.3 (60.0-200.0)
[2021-05-10] MEDS: ACYCLOVIR SODIUM 500 MG in SODIUM CHLORIDE 0.9% 100 ML IVPB SCH (10:09)
[2021-05-10] MEDS: MIDODRINE 5 MG TAB PO SCH (10:11)
[2021-05-10] MEDS: FAMOTIDINE 20 MG TAB PO SCH (10:11)
[2021-05-10] MEDS: CHOLECALCIFEROL 25 MCG (1000 IU) TABLET PO SCH (10:11)
[2021-05-10] MEDS: HYDROCORTISONE 1% CREAM 30 GM TUBE TOPICAL SCH (10:12)
[2021-05-10] MEDS: levETIRAcetam 500 MG TAB PO SCH (10:12)
[2021-05-10] MEDS: HEPARIN SODIUM,PORCINE/PF 5,000 UNIT/0.5 ML SYRINGE SQ SCH (10:12)
[2021-05-10] MEDS: CLOPIDOGREL 75 MG TAB PO SCH (10:12)
[2021-05-10] MEDS: CYANOCOBALAMIN 500 MCG TAB PO SCH (10:12)
[2021-05-10] MEDS: ATORVASTATIN 80 MG TAB PO SCH (10:12)
[2021-05-10] MEDS: NYSTATIN 100,000 UNIT/ML SUSP 500,000 UNIT/5 ML CUP PO SCH ×2 (10:15→12:58)
[2021-05-10 12:49] VITALS: BP 113/67; PULSE 60; RESP 18; TEMP 97.6
--- NOTE | 2021-05-10 13:24 | P.DS ---
Providers Date of admission: 05/07/21 23:34 Expected date of discharge: 05/10/21 Attending physician: Katherine Antoine Consults: 05/07/21 22:59 Consult Physician Routine Consulting Provider: Aubrey Dubon Consult Reason/Comments: Neutropenic fever Do you want consulting provider notified?: Already Contacted 05/08/21 00:37 Consult Physician Routine Consulting Provider: Miguel Sweeney Consult Reason/Comments: neutropenic fever Do you want consulting provider notified?: Yes Primary care physician: [facility] Course: Patient is a pleasant 80-year-old male came in with either patient is found to have neutropenic fever. Patient does have history of mantle cell lymphoma for which patient is receiving chemotherapy patient received second cycle of chemo out of for total 6 cycles. Patient received chemotherapy lower 2 weeks ago. Patient denied any dysuria denied any cough chest x-ray is within normal limits. Did not show any significant abnormality patient denied any diarrhea R any other symptoms. Patient the only complaint was he gets itchy after chemotherapy. Patient denied any nausea vomiting. 05/09/2021 Patient still has a fevers although overall the improved. Patient will be continued on broad-spectrum antibiotics. Antiviral dose was increased because of worsening rash. 05/10/2021 Patient had a low-grade fever yesterday evening 100.1, no fevers at the time. No growth on blood cultures. Receiving antimicrobial therapy with vancomycin and cefepime, infectious disease following along with oncology. Patient will be going home today on oral Avelox for 7 days. Losartan was held due to marginal blood pressures we'll discontinue this at discharge. PHYSICAL EXAMINATION: GENERAL: The patient is alert and oriented x3, not in any acute distress. Well developed, well nourished. HEENT: Pupils are round and equally reacting to light. EOMI. No scleral icterus. No conjunctival pallor. Normocephalic, atraumatic. No pharyngeal erythema. No thyromegaly. CARDIOVASCULAR: S1 and S2 present. No murmurs, rubs, or gallops. PULMONARY: Chest is clear to auscultation, no wheezing or crackles. ABDOMEN: Soft, nontender, nondistended, normoactive bowel sounds. No palpable organomegaly. MUSCULOSKELETAL: No joint swelling or deformity. EXTREMITIES: No cyanosis, clubbing, or pedal edema. NEUROLOGICAL: Gross neurological examination did not reveal any focal deficits. SKIN: No rashes. Assessment and plan - neutropenic fevers source is not clear: No growth on blood cultures, low-grade fever. Yesterday evening 100.1. Patient stable for discharge per infectious disease will complete course antimicrobial therapy with Avelox 400 daily for 7 days. -Mantle cell lymphoma receiving chemotherapy neutropenic at this time: Follow-up with oncology in the outpatient setting --History of Lewy body dementia -Parkinson's - hypertension: Discontinue losartan due to borderline blood pressures -Hyperlipidemia -hypothyroidism DVT prophylaxis: Subcutaneous heparin Discharge home continue on oral Avelox 400 daily for 7 days, follow-up with PCP and oncology in the outpatient setting. Patient Condition at Discharge: Serious Plan - Discharge Summary Discharge Rx Participant: Yes New Discharge Prescriptions: New Moxifloxacin HCl [Avelox] 400 mg PO DAILY 7 Days #7 tablet Continue Clopidogrel Bisulfate [Plavix] 75 mg PO DAILY Atorvastatin [Lipitor] 80 mg PO DAILY Midodrine HCl [ProAmatine] 2.5 mg PO DAILY Nystatin 100,000 Unit/ml Susp [Mycostatin Oral Susp] 4 ml PO QID Hydrocortisone Oint [Hydrocortisone 2.5% Oint] 1 applic TOPICAL BID Levothyroxine Sodium [Synthroid] 75 mcg PO DAILY Cyanocobalamin (Vitamin B-12) [Vitamin B-12] 1,000 mcg PO DAILY levETIRAcetam [Keppra] 1,000 mg PO BID Cholecalciferol [Vitamin D3 (25 Mcg = 1000 Iu)] 50 mcg PO DAILY Acyclovir 400 mg PO BID hydrOXYzine HCL 20 mg PO BID PRN PRN Reason: Itching ondansetron HCL [Zofran] 8 mg PO Q6H PRN PRN Reason: Nausea Discontinued Losartan [Cozaar] 12.5 mg PO DAILY Levofloxacin [Levaquin] 500 mg PO DAILY Discharge Medication List Atorvastatin [Lipitor] 80 mg PO DAILY 05/30/15 [History] Clopidogrel Bisulfate [Plavix] 75 mg PO DAILY 05/30/15 [History] Midodrine HCl [ProAmatine] 2.5 mg PO DAILY 05/30/15 [History] Acyclovir 400 mg PO BID 05/07/21 [History] Cholecalciferol [Vitamin D3 (25 Mcg = 1000 Iu)] 50 mcg PO DAILY 05/07/21 [History] Cyanocobalamin (Vitamin B-12) [Vitamin B-12] 1,000 mcg PO DAILY 05/07/21 [History] Hydrocortisone Oint [Hydrocortisone 2.5% Oint] 1 applic TOPICAL BID 05/07/21 [History] Levothyroxine Sodium [Synthroid] 75 mcg PO DAILY 05/07/21 [History] Nystatin 100,000 Unit/ml Susp [Mycostatin Oral Susp] 4 ml PO QID 05/07/21 [History] hydrOXYzine HCL 20 mg PO BID PRN 05/07/21 [History] levETIRAcetam [Keppra] 1,000 mg PO BID 05/07/21 [History] ondansetron HCL [Zofran] 8 mg PO Q6H PRN 05/07/21 [History] Moxifloxacin HCl [Avelox] 400 mg PO DAILY 7 Days #7 tablet 05/10/21 [Rx] Follow up Appointment(s)/Referral(s): Severo Rosales III, MD [Primary Care Provider] - 3 Days Raul Grady MD [STAFF PHYSICIAN] - 1 Week Discharge Disposition: HOME SELF-CARE
--- NOTE | 2021-05-10 17:26 | PN ---
PROGRESS NOTE DATE OF SERVICE: 05/10/2021. REASON FOR FOLLOW: Febrile neutropenia. INTERVAL HISTORY: Patient did have a low-grade fever of 100.1 last night. The patient is afebrile since then. The patient overall is feeling much better. The patient denies having any chest pain, shortness of breath or cough. No nausea, no vomiting. No abdominal pain. No diarrhea. PHYSICAL EXAMINATION: Blood pressure was 113/67, pulse of 60, temperature is 97.2. Sating 97% on room air. General description is an elderly male up in the chair in no distress. Respiratory system: Unlabored breathing, clear to auscultation anteriorly. Heart S1, S2. Regular rate and rhythm. Abdomen: Soft, no tenderness. LABS: Hemoglobin 9.1, white count 11.1. BUN of 13, creatinine 1.0. Culture has been negative so far. DIAGNOSTIC IMPRESSION AND PLAN: Patient admitted to the hospital with febrile neutropenia in this patient with no obvious focus of infection. Cultures have been negative so far. The patient wants to go home. Plan is to give a short course of oral Avelox and close outpatient followup. Questions and concerns were answered. MMODL / IJN: [id number] /
--- NOTE | 2021-05-10 21:25 | P.PN ---
Subjective Progress Note Date: 05/10/21 Principal diagnosis: WBC still decreased. Acyclovir increased potential shingles Doing better, up in chair ready for discharge. Remains neutropenic and advised repeat cbc tomorrow Objective - Vital Signs Vital signs: Vital Signs Temp 97.6 F 05/10/21 11:35 Pulse 60 05/10/21 11:35 Resp 18 05/10/21 11:35 BP 113/67 05/10/21 11:35 Pulse Ox 97 05/10/21 11:35 Intake & Output 05/10/21 05/10/21 05/11/21 06:59 18:59 06:59 Intake Total 740 Output Total 1750 800 Balance -1010 -800 Intake: Intake, IV Titration 450 Amount Acyclovir Sodium 500 mg 100 In Sodium Chloride 0.9% 100 ml @ 100 mls/hr IVPB Q8HR [facility] Rx#:[id number] Cefepime 2 gm In Sodium 100 Chloride 0.9% 100 ml @ 25 mls/hr IVPB Q8HR [facility] Rx# :[id number] Vancomycin 1,250 mg In 250 Sodium Chloride 0.9% 250 ml @ 125 mls/hr IVPB Q12H [facility] Rx#:[id number] Oral 290 Output: Urine 1750 800 Other: # Voids 4 1 # Bowel Movements 1 - Exam - Constitutional General appearance: cooperative, no acute distress - EENT Eyes: EOMI, PERRLA ENT: hard of hearing, NA/AT - Neck Neck: normal ROM - Respiratory Respiratory: bilateral: diminished - Cardiovascular Rhythm: regularly irregular leg Peripheral Edema: right: 3+ - Gastrointestinal General gastrointestinal: normal bowel sounds, tenderness - Integumentary Bilateral arms, hands and legs raised papule dry skin raash Integumentary: pale - Neurologic Neurologic: CNII-XII intact - Musculoskeletal Musculoskeletal: generalized weakness, strength equal bilaterally - Labs CBC & Chem 7: 05/10/21 03:44 05/10/21 03:44 Labs: Abnormal Lab Results - Last 24 Hours (Table) 05/10/21 05/10/21 Range/Units 03:44 03:44 WBC 1.1 L* (3.8-10.6) k/uL RBC 2.61 L (4.30-5.90) m/uL Hgb 9.3 L (13.0-17.5) gm/dL Hct 26.6 L (39.0-53.0) % MCV 101.8 H (80.0-100.0) fL MCH 35.5 H (25.0-35.0) pg Calcium 8.5 L (8.7-10.3) mg/dL Microbiology - Last 24 Hours (Table) 05/07/21 22:39 Blood Culture - Preliminary Blood No Growth after 48 hours Assessment and Plan (1) Mantle cell lymphoma Status: Acute Code(s): C83.10 - MANTLE CELL LYMPHOMA, UNSPECIFIED SITE SNOME D Code(s): 007173357 (2) Rash and nonspecific skin eruption Status: Acute Code(s): R21 - RASH AND OTHER NONSPECIFIC SKIN ERUPTION SNOMED Code(s): 468045725 (3) Neutropenic fever Status: Acute Code(s): D70.9 - NEUTROPENIA, UNSPECIFIED; R50.81 - FEVER PRESENTING WITH CONDITIONS CLASSIFIED ELSEWHERE SNOMED Code(s): 465632653 Plan: Assessment and Recommendations: Mantel Cell Lymphoma: - Status Post Cycle 2 BR - Growth factor added to remaining cycles - Hold next until resolution if infectious cause found Neutropenic Fever: - improving - Ho cultures pending - ?Tumor fever (Check for lysis) - Skin Eruptions:? Viral hsv? = acyclorir - ID Following - Broad spectrum antibiotics to continue - continue growth factor Increase Activity Incenstive Spirometer and PT/OT DIeticien for decreased albumin and PO intake Discharged per Primary team WBC are still low, neutropenic, patient to continue on prophylaxic antibiotics and follow up this week in office
== END 2021-05-10 17:00 | disposition home or self-care (01) | DRG 809 ==
LOC: EC 19:59 → 5NMEDONC 23:34
PROVIDERS: ADMIT Hospitalist; ATTEND Hospitalist
DX: D70.1 Agranulocytosis secondary to cancer chemotherapy (principal); C83.10 Mantle cell lymphoma, unspecified site; R50.81 Fever presenting with conditions classified elsewhere; E03.9 Hypothyroidism, unspecified; L27.0 Generalized skin eruption due to drugs and medicaments taken internally; T45.1X5A Adverse effect of antineoplastic and immunosuppressive drugs, initial encounter; E78.5 Hyperlipidemia, unspecified; M10.9 Gout, unspecified; I44.7 Left bundle-branch block, unspecified; F02.80 Dementia in other diseases classified elsewhere, unspecified severity, without behavioral disturbance, psychotic disturbance, mood disturbance, and anxiety; G31.83 Neurocognitive disorder with Lewy bodies; I10 Essential (primary) hypertension; I25.2 Old myocardial infarction; K59.00 Constipation, unspecified; Z20.822 Contact with and (suspected) exposure to COVID-19; Z79.02 Long term (current) use of antithrombotics/antiplatelets; Z79.890 Hormone replacement therapy; Z79.899 Other long term (current) drug therapy; Z86.14 Personal history of Methicillin resistant Staphylococcus aureus infection; Z98.42 Cataract extraction status, left eye; Z98.41 Cataract extraction status, right eye; Z95.0 Presence of cardiac pacemaker
CPT/HCPCS: 36415; 71046; 80048; 80053; 80076; 80202; 81003; 83605; 83615; 83735; 84100; 84145; 84550; 85025; 85027; 85610; 85730; 87040; 87635; 93005

== ENCOUNTER → 2021-12-04 | Outpatient (CLI) | payer MEDICARE ==
[~2021-12-04] MED LIST: TIXAGEVIMAB/CILGAVIMAB (EUA) 300 MG/3 ML COMBO.PKG IM NR
[2021-12-04 11:16] VITALS: RESP 16; TEMP 97.9
[2021-12-04 12:31] VITALS: BP 161/84; PULSE 66
== END ==
LOC: PROCWHC3 10:48
PROVIDERS: ATTEND Internal Medicine Hematology & Oncology
DX: C83.18 Mantle cell lymphoma, lymph nodes of multiple sites (principal); Z87.891 Personal history of nicotine dependence
CPT/HCPCS: 96372; Q0220

== ENCOUNTER → 2022-01-29 | Outpatient (CLI) | payer MEDICARE ==
[2022-01-29 14:33] LABS: HCT 30.7 % (39.6-50.0); MCH 34.7 pg (27.0-32.0); MCHC 32.6 g/dL (32.0-37.0); MCV 106.6 fL (80.0-97.0); Mean Platelet Volume 9.4 fL (9.5-12.2); NRBC Per 100 WBC 0 /100 WBCS (0.0-0.0); Platelet Count 188 X 10*3/uL (140-440); RBC 2.88 X 10*6/uL (4.40-5.60); RDW 12.1 % (11.5-14.5); WBC 4.14 X 10*3/uL (4.50-10.00)
[2022-01-29 14:51] LABS: ALT 14 U/L (10-49); AST 26 U/L (14-35); African American GFR (CKD) 59.7 (60.0-200.0); Albumin 4.3 g/dL (3.8-4.9); Albumin/Globulin Ratio 1.59 (1.60-3.17); Alkaline Phosphatase 67 U/L (41-126); BUN/Creat Ratio 13.92 Ratio (12.00-20.00); Blood Urea Nitrogen 18.1 mg/dL (9.0-27.0); Calcium 9.5 mg/dL (8.7-10.3); Carbon Dioxide 23.1 mmol/L (20.0-27.5); Chloride 103 mmol/L (96-109); Chol/HDL Ratio 3.47 Ratio; Globulin 2.7 g/dL (1.6-3.3); Glucose 86 mg/dL (70-110); LDL Cholesterol,Calculated 60.4 mg/dL (0.0-131.0); Non-African American GFR(CKD) 51.5 (60.0-200.0); Potassium 4.6 mmol/L (3.5-5.5); Sodium 137 mmol/L (135-145)
[2022-01-29 15:51] LABS: Basophils # (A) 0.05 X 10*3/uL (0.00-0.10); Basophils % (A) 1.2 %; Eosinophils # (A) 0.34 X 10*3/uL (0.04-0.35); Eosinophils % (A) 8.2 %; Lymphocytes # (A) 0.37 X 10*3/uL (0.90-5.00); Lymphocytes % (A) 8.9 %; Monocytes # (A) 0.66 X 10*3/uL (0.20-1.00); Monocytes % (A) 15.9 %; Neutrophils # (A) 2.68 X 10*3/uL (1.80-7.70); Neutrophils % (A) 64.8 %
== END | disposition home or self-care (01) ==
LOC: LABWHC1 08:13
PROVIDERS: ATTEND Family Medicine
DX: Z00.01 Encounter for general adult medical examination with abnormal findings (principal); E03.9 Hypothyroidism, unspecified
CPT/HCPCS: 36415; 80053; 80061; 84439; 84443; 85025

== ENCOUNTER 2022-03-03 15:35 | Inpatient (IN) | payer MEDICARE ==
--- NOTE | 2022-03-03 16:15 | XR ---
EXAMINATION TYPE: XR chest 2V DATE OF EXAM: 03/03/2022 COMPARISON: 05/07/2021 INDICATION: Difficulty in breathing TECHNIQUE: Frontal and lateral views of the chest are obtained. FINDINGS: The heart size is normal. The pulmonary vasculature is normal. There is a small right pleural effusion. Pacemaker overlies left chest.. IMPRESSION: 1. Small right pleural effusion
[2022-03-03 16:17] LABS: Albumin 3.9 g/dL (3.5-5.0); HCT 30.8 % (39.0-53.0); MCHC 32.4 g/dL (31.0-37.0); MCV 101.8 fL (80.0-100.0); Macrocytosis Slight; Magnesium 1.9 mg/dL (1.6-2.3); Mean Platelet Volume 9.1; Platelet Count 114 k/uL (150-450); Potassium 3.9 mmol/L (3.5-5.1); RBC 3.03 m/uL (4.30-5.90); RDW 13.4 % (11.5-15.5); Total Bilirubin 1.1 mg/dL (0.2-1.3); WBC 3.3 k/uL (3.8-10.6)
[2022-03-03 16:37] LABS: INR 0.9 (<1.2); Prothrombin Time 10.2 sec (9.0-12.0)
[2022-03-03 16:40] LABS: Partial Thromboplastin Time 20.2 sec (22.0-30.0)
[2022-03-03 17:10] LABS: Band Neutrophils % 2 %; Metamyelocytes # (M) 0.03 k/uL (0); Metamyelocytes % 1 %; Monocytes # (M) 0.73 k/uL (0-1.0); Myelocytes # (M) 0.03 k/uL (0); Myelocytes % 1 %; Neutrophils % (M) 66 %; Nucleated Red Blood Cells 1 /100 WBC (0-0); Total Cells Counted 200
[2022-03-03] MEDS ORDERED: HEPARIN SODIUM 1,000 UN/ML (10ML VL) IV ONE (17:14)
--- NOTE | 2022-03-03 17:24 | ED ---
General Adult HPI - General Chief complaint: Shortness of Breath Stated complaint: Recheck/PE Eval Time Seen by Provider: 03/03/22 16:45 Source: patient, RN notes reviewed, old records reviewed Mode of arrival: ambulatory Limitations: no limitations - History of Present Illness Initial comments: This is an 81-year-old male who presents emergency Department with a past medical history significant for mantle cell lymphoma. Patient states over the last few days any time he gets up and walks around he gets short of breath before he walks referred all. Patient also has had some left-sided sharp chest pain when he is up and moving. Patient states he talked with his oncologist and they wanted him to come to the emergency department because they fear he might have a pulmonary embolism. Patient denies any anterior chest pain. Patient denies any fever chills or cough. Patient states she's got some abdominal pain but that is chronic ongoing for months that has not changed. Patient denies any diarrhea nausea or vomiting. - Related Data Home Medications Medication Instructions Recorded Confirmed Atorvastatin [Lipitor] 80 mg PO -BRKT 05/30/15 03/03/22 Clopidogrel Bisulfate [Plavix] 75 mg PO -BRKFST 05/30/15 03/03/22 Midodrine HCl [ProAmatine] 2.5 mg PO DAILY 05/30/15 03/03/22 Cholecalciferol [Vitamin D3 (25 50 mcg PO DAILY 05/07/21 03/03/22 Mcg = 1000 Iu)] Cyanocobalamin (Vitamin B-12) 1,000 mcg PO DAILY 05/07/21 03/03/22 [Vitamin B-12] Levothyroxine Sodium [Synthroid] 75 mcg PO DAILY@0630 05/07/21 03/03/22 levETIRAcetam [Keppra] 1,000 mg PO BID 05/07/21 03/03/22 Metoprolol Succinate [Toprol XL] 25 mg PO DAILY 12/04/21 03/03/22 Acalabrutinib [Calquence] 100 mg PO DAILY 03/03/22 03/03/22 Allopurinol [Zyloprim] 100 mg PO /BRKFST 03/03/22 03/03/22 Ascorbic Acid [Vitamin C] 500 mg PO DAILY 03/03/22 03/03/22 Calcium Carbonate [Tums] 500 mg PO BID PRN 03/03/22 03/03/22 Famotidine 40 mg PO HS 03/03/22 03/03/22 HYDROcodone/APAP 10-325MG [[place] 1 tab PO Q6HR PRN 03/03/22 03/03/22 10-325] Losartan Potassium [Cozaar] 12.5 mg PO PC-BRKFST 03/03/22 03/03/22 Sennosides/Docusate Sodium [Senna 1 cap PO HS 03/03/22 03/03/22 Plus 8.6-50 mg Softgel] levETIRAcetam [Keppra] 250 mg PO BID 03/03/22 03/03/22 Allergies Allergy/AdvReac Type Severity Reaction Status Date / Time No Known Allergies Allergy Verified 03/03/22 15:41 Review of Systems ROS Statement: Those systems with pertinent positive or pertinent negative responses have been documented in the HPI. ROS Other: All systems not noted in ROS Statement are negative. Past Medical History Past Medical History: Thyroid Disorder Additional Past Medical History / Comment(s): LBBB, hx gout, occ problem with balance, swollen hand from wasp sting, vertigo, lymphoma Last Myocardial Infarction Date:: 2012 History of Any Multi-Drug Resistant Organisms: None Reported Past Surgical History: Heart Catheterization With Stent, Orthopedic Surgery, Pacemaker Additional Past Surgical History / Comment(s): total 4 stents, removal of s alivary gland and lymph node, cataracts, left knee arthroscopy Past Anesthesia/Blood Transfusion Reactions: Motion Sickness Date of Last Stent Placement:: 2012 Type of Cardiac Device: Permanent Pacemaker Device Placement Date:: 2012 Past Psychological History: No Psychological Hx Reported Smoking Status: Former smoker Past Alcohol Use History: None Reported Past Drug Use History: None Reported - Past Family History Mother Family Medical History: Cancer Sister(s) Family Medical History: Cancer General Exam - General Exam Comments Initial Comments: GENERAL: Patient is well-developed and well-nourished. Patient is nontoxic and well-hydrated and is in mild distress. ENT: Neck is soft and supple. No significant lymphadenopathy is noted. Oropharynx is clear. Moist mucous membranes. Neck has full range of motion without eliciting any pain. EYES: The sclera were anicteric and conjunctiva were pink and moist. Extraocular movements were intact and pupils were equal round and reactive to light. Eyelids were unremarkable. PULMONARY: Unlabored respirations. Good breath sounds bilaterally. No audible rales rhonchi or wheezing was noted. CARDIOVASCULAR: There is a regular rate and rhythm without any murmurs gallops or rubs. ABDOMEN: Soft and nontender with normal bowel sounds. SKIN: Skin is clear with no lesions or rashes and otherwise unremarkable. NEUROLOGIC: Patient is alert and oriented x3. Cranial nerves II through XII are grossly intact. Motor and sensory are also intact. Normal speech, volume and content. Symmetrical smile. MUSCULOSKELETAL: Normal extremities with adequate strength and full range of motion. LYMPHATICS: No significant lymphadenopathy is noted PSYCHIATRIC: Normal psychiatric evaluation. Limitations: no limitations Course Vital Signs 03/03/22 03/03/22 03/03/22 15:39 18:35 20:20 Temperature 98 F Pulse Rate 94 71 91 Respiratory 20 16 18 Rate Blood Pressure 98/64 108/91 108/64 O2 Sat by Pulse 99 95 97 Oximetry Medical Decision Making - Medical Decision Making EKG shows sinus rhythm at 91 bpm OK interval is 241 QRS is 145 Q-T intervals 41 QTC is 450. Patient's EKG shows no ST segment elevation or depression. Chest x-ray shows no acute abnormality only a small right-sided pleural effusion After patient was admitted to the floor Dr. Borja wanted me to cancel the VQ scan and ordered a CTA to rule out pulmonary embolism. I went ahead and did this. - Lab Data Result diagrams: 03/03/22 15:59 03/03/22 15:59 Lab Results 03/03/22 03/03/22 03/03/22 Range/Units 15:59 15:59 15:59 WBC 3.3 L (3.8-10.6) k/uL RBC 3.03 L (4.30-5.90) m/uL Hgb 10.0 L (13.0-17.5) gm/dL Hct 30.8 L (39.0-53.0) % MCV 101.8 H (80.0-100.0) fL MCH 33.0 (25.0-35.0) pg MCHC 32.4 (31.0-37.0) g/dL RDW 13.4 (11.5-15.5) % Plt Count 114 L (150-450) k/uL MPV 9.1 Neutrophils % (Manual) 66 % Band Neuts % (Manual) 2 % Lymphocytes % (Manual) 6 % Monocytes % (Manual) 22 % Eosinophils % (Manual) 3 % Metamyelocytes % 1 % Myelocytes % 1 % Neutrophils # (Manual) 2.20 (1.3-7.7) k/uL Lymphocytes # (Manual) 0.20 L (1.0-4.8) k/uL Monocytes # (Manual) 0.73 (0-1.0) k/uL Eosinophils # (Manual) 0.10 (0-0.7) k/uL Metamyelocytes # (Man) 0.03 H (0) k/uL Myelocytes # (Manual) 0.03 H (0) k/uL Nucleated RBCs 1 H (0-0) /100 WBC Manual Slide Review Performed Macrocytosis Slight PT 10.2 (9.0-12.0) sec INR 0.9 (<1.2) APTT 20.2 L (22.0-30.0) sec D-Dimer 5.62 H (<0.60) mg/L FEU Sodium 138 (137-145) mmol/L Potassium 3.9 (3.5-5.1) mmol/L Chloride 104 (98-107) mmol/L Carbon Dioxide 25 (22-30) mmol/L Anion Gap 9 mmol/L BUN 27 H (9-20) mg/dL Creatinine 1.86 H (0.66-1.25) mg/dL Est GFR (CKD-EPI)AfAm 39 (>60 ml/min/1.73 sqM) Est GFR (CKD-EPI)NonAf 34 (>60 ml/min/1.73 sqM) Glucose 104 H (74-99) mg/dL Calcium 9.0 (8.4-10.2) mg/dL Magnesium 1.9 (1.6-2.3) mg/dL Total Bilirubin 1.1 (0.2-1.3) mg/dL AST 39 (17-59) U/L ALT 22 (4-49) U/L Alkaline Phosphatase 141 H (38-126) U/L Troponin I (0.000-0.034) ng/mL Total Protein 7.0 (6.3-8.2) g/dL Albumin 3.9 (3.5-5.0) g/dL 03/03/22 Range/Units 15:59 WBC (3.8-10.6) k/uL RBC (4.30-5.90) m/uL Hgb (13.0-17.5) gm/dL Hct (39.0-53.0) % MCV (80.0-100.0) fL MCH (25.0-35.0) pg MCHC (31.0-37.0) g/dL RDW (11.5-15.5) % Plt Count (150-450) k/uL MPV Neutrophils % (Manual) % Band Neuts % (Manual) % Lymphocytes % (Manual) % Monocytes % (Manual) % Eosinophils % (Manual) % Metamyelocytes % % Myelocytes % % Neutrophils # (Manual) (1.3-7.7) k/uL Lymphocytes # (Manual) (1.0-4.8) k/uL Monocytes # (Manual) (0-1.0) k/uL Eosinophils # (Manual) (0-0.7) k/uL Metamyelocytes # (Man) (0) k/uL Myelocytes # (Manual) (0) k/uL Nucleated RBCs (0-0) /100 WBC Manual Slide Review Macrocytosis PT (9.0-12.0) sec INR (<1.2) APTT (22.0-30.0) sec D-Dimer (<0.60) mg/L FEU Sodium (137-145) mmol/L Potassium (3.5-5.1) mmol/L Chloride (98-107) mmol/L Carbon Dioxide (22-30) mmol/L Anion Gap mmol/L BUN (9-20) mg/dL Creatinine (0.66-1.25) mg/dL Est GFR (CKD-EPI)AfAm (>60 ml/min/1.73 sqM) Est GFR (CKD-EPI)NonAf (>60 ml/min/1.73 sqM) Glucose (74-99) mg/dL Calcium (8.4-10.2) mg/dL Magnesium (1.6-2.3) mg/dL Total Bilirubin (0.2-1.3) mg/dL AST (17-59) U/L ALT (4-49) U/L Alkaline Phosphatase (38-126) U/L Troponin I 0.017 (0.000-0.034) ng/mL Total Protein (6.3-8.2) g/dL Albumin (3.5-5.0) g/dL Critical Care Time Critical Care Time: Yes Total Critical Care Time: 35 Disposition Clinical Impression: Dyspnea, Pulmonary embolism Disposition: [facility] Time of Disposition: 17:26
[2022-03-03] MEDS ORDERED: SODIUM CHLORIDE 0.9% 1,000 ML IV ONE ×2 (18:17→21:05)
[2022-03-03] MEDS: HEPARIN SOD,PORK IN 0.45% NACL 25,000 UNIT in 0.45% NACL 1 250ML.BAG IV SCH (19:08)
[2022-03-04] MEDS ORDERED: CALCIUM CARBONATE 500 MG CHEWABLE PO PRN (07:15)
[2022-03-04] MEDS ORDERED: allopurinoL 100 MG TAB PO SCH (07:30)
--- NOTE | 2022-03-04 08:48 | P.HPIM ---
History of Present Illness This is a pleasant 9 years old male with past medical history of hypothyroidism, coronary artery disease status post stent and pacemaker, vertigo, lymphoma since 2012, left bundle-branch block. Seizure Was sent from her medicine doctor rule out pulmonary embolism. 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 His oncologist is Dr. Grady, and he was getting chemotherapy last summer, end of August and switched immunotherapy after that which did not help him much so started on a new chemotherapy but feels has lowered into once a day after he developed some low platelet count as he states. For the last week he was getting progressive shortness of breath with wounding and left-sided pleuritic-like chest pain that increases with deep breathing and movement and felt like sharp, He denies any vomiting or diarrhea, he has some difficulty to initiate urination but no dysuria Vitals are stable. wbc of 3.3, hemoglobin 10.0 and platelet count 114 D-dimer is elevated at 5.6. INR is normal is 0.9. Creatinine is elevated at 1.8. Last month was 1.4 and before that was ranging 1.0-1.3. Emergency room patient was started on heparin drip and normal saline Review of Systems CONSTITUTIONAL: No fever, no malaise, no fatigue. HEENT: No recent visual problems or hearing problems. Denied any sore throat. CARDIOVASCULAR: No orthopnea, PND, no palpitations, no syncope. PULMONARY: No shortness of breath, no cough, no hemoptysis. GASTROINTESTINAL: No diarrhea, no nausea, no vomiting, no abdominal pain. Normoactive bowel sounds. NEUROLOGICAL: No headaches, no weakness, no numbness. HEMATOLOGICAL: Denies any bleeding or petechiae. GENITOURINARY: Denies any burning micturition, frequency, or urgency. MUSCULOSKELETAL/RHEUMATOLOGICAL: Denies any joint pain, swelling, or any muscle pain. ENDOCRINE: Denies any polyuria or polydipsia. Past Medical History Past Medical History: Thyroid Disorder Additional Past Medical History / Comment(s): LBBB, hx gout, occ problem with balance, swollen hand from wasp sting, vertigo, lymphoma Last Myocardial Infarction Date:: 2012 History of Any Multi-Drug Resistant Organisms: None Reported Past Surgical History: Heart Catheterization With Stent, Orthopedic Surgery, Pacemaker Additional Past Surgical History / Comment(s): total 4 stents, removal of salivary gland and lymph node, cataracts, left knee arthroscopy Past Anesthesia/Blood Transfusion Reactions: Motion Sickness Date of Last Stent Placement:: 2012 Type of Cardiac Device: Permanent Pacemaker Device Placement Date:: 2012 Past Psychological History: No Psychological Hx Reported Smoking Status: Former smoker Past Alcohol Use History: None Reported Past Drug Use History: None Reported - Past Family History Mother Family Medical History: Cancer Sister(s) Family Medical History: Cancer Medications and Allergies Home Medications Medication Instructions Recorded Confirmed Type Atorvastatin [Lipitor] 80 mg PO PC-BRKFST 05/30/15 03/03/22 History Clopidogrel Bisulfate [Plavix] 75 mg PO PC-BRKFST 05/30/15 03/03/22 History Midodrine HCl [ProAmatine] 2.5 mg PO DAILY 05/30/15 03/03/22 History Cholecalciferol [Vitamin D3 (25 50 mcg PO DAILY 05/07/21 03/03/22 History Mcg = 1000 Iu)] Cyanocobalamin (Vitamin B-12) 1,000 mcg PO DAILY 05/07/21 03/03/22 History [Vitamin B-12] Levothyroxine Sodium [Synthroid] 75 mcg PO DAILY@0630 05/07/21 03/03/22 History levETIRAcetam [Keppra] 1,000 mg PO BID 05/07/21 03/03/22 History Metoprolol Succinate [Toprol XL] 25 mg PO DAILY 12/04/21 03/03/22 History Acalabrutinib [Calquence] 100 mg PO DAILY 03/03/22 03/03/22 History Allopurinol [Zyloprim] 100 mg PO W/BRKFST 03/03/22 03/03/22 History Ascorbic Acid [Vitamin C] 500 mg PO DAILY 03/03/22 03/03/22 History Calcium Carbonate [Tums] 500 mg PO BID PRN 03/03/22 03/03/22 History Famotidine 40 mg PO HS 03/03/22 03/03/22 History HYDROcodone/APAP 10-325MG [[place] 1 tab PO Q6HR PRN 03/03/22 03/03/22 History 10-325] Losartan Potassium [Cozaar] 12.5 mg PO PC-BRKFST 03/03/22 03/03/22 History Sennosides/Docusate Sodium [[place] 1 cap PO HS 03/03/22 03/03/22 History Plus 8.6-50 mg Softgel] levETIRAcetam [Keppra] 250 mg PO BID 03/03/22 03/03/22 History Allergies Allergy/AdvReac Type Severity Reaction Status Date / Time No Known Allergies Allergy Verified 03/03/22 15:41 Physical Exam Vitals: Vital Signs Temp Pulse Pulse Resp BP BP Pulse Ox 03/04/22 04:00 97.6 F 76 18 130/63 96 03/04/22 02:00 60 16 03/04/22 00:00 60 16 03/03/22 21:10 97.6 F 88 18 123/60 98 03/03/22 21:00 88 18 03/03/22 20:20 91 18 108/64 97 03/03/22 18:35 71 16 108/91 95 03/03/22 15:39 98 F 94 20 98/64 99 Intake and Output 03/03/22 03/04/22 03/04/22 22:59 06:59 14:59 Output Total 100 200 Balance -100 -200 Output: Urine 100 200 Other: Voiding Method Urinal Urinal Weight 73.482 kg GENERAL: The patient is alert and oriented x3, not in any acute distress. Well developed, well nourished. HEENT: Pupils are round and equally reacting to light. EOMI. No scleral icterus. No conjunctival pallor. Normocephalic, atraumatic. No pharyngeal erythema. No thyromegaly. CARDIOVASCULAR: S1 and S2 present. No murmurs, rubs, or gallops. PULMONARY: Chest is clear to auscultation, no wheezing or crackles. ABDOMEN: Soft, nontender, nondistended, normoactive bowel sounds. No palpable organomegaly. MUSCULOSKELETAL: No joint swelling or deformity. EXTREMITIES: No cyanosis, clubbing, or pedal edema. NEUROLOGICAL: Gross neurological examination did not reveal any focal deficits. SKIN: No rashes. No petechiae Results CBC & Chem 7: 03/03/22 15:59 03/03/22 15:59 Labs: Abnormal Lab Results - Last 24 Hours (Table) 03/03/22 03/03/22 03/03/22 Range/Units 15:59 15:59 15:59 WBC 3.3 L (3.8-10.6) k/uL RBC 3.03 L (4.30-5.90) m/uL Hgb 10.0 L (13.0-17.5) gm/dL Hct 30.8 L (39.0-53.0) % MCV 101.8 H (80.0-100.0) fL Plt Count 114 L (150-450) k/uL Lymphocytes # (Manual) 0.20 L (1.0-4.8) k/uL Metamyelocytes # (Man) 0.03 H (0) k/uL Myelocytes # (Manual) 0.03 H (0) k/uL Nucleated RBCs 1 H (0-0) /100 WBC APTT 20.2 L (22.0-30.0) sec D-Dimer 5.62 H (<0.60) mg/L FEU BUN 27 H (9-20) mg/dL Creatinine 1.86 H (0.66-1.25) mg/dL Glucose 104 H (74-99) mg/dL Alkaline Phosphatase 141 H (38-126) U/L 03/04/22 Range/Units 01:33 WBC (3.8-10.6) k/uL RBC (4.30-5.90) m/uL Hgb (13.0-17.5) gm/dL Hct (39.0-53.0) % MCV (80.0-100.0) fL Plt Count (150-450) k/uL Lymphocytes # (Manual) (1.0-4.8) k/uL Metamyelocytes # (Man) (0) k/uL Myelocytes # (Manual) (0) k/uL Nucleated RBCs (0-0) /100 WBC APTT 50.2 H (22.0-30.0) sec D-Dimer (<0.60) mg/L FEU BUN (9-20) mg/dL Creatinine (0.66-1.25) mg/dL Glucose (74-99) mg/dL Alkaline Phosphatase (38-126) U/L Thrombosis Risk Factor Assmnt - Choose All That Apply Each Factor Represents 1 point: Swollen legs (current) Other Risk Factors: Yes Each Risk Factor Represents 2 Points: Malignancy Each Risk Factor Represents 3 Points: Age 75 years or older Thrombosis Risk Factor Assessment Total Risk Factor Score: 6 Thrombosis Risk Factor Assessment Level: High Risk Assessment and Plan Assessment: Exertional dyspnea and aortic chest pain with elevated d-dimer suspicious for PE Acute kidney injury, versus progressive chronic kidney disease. Unknown baseline Patient is a with Mantle cell lymphoma intestinal, lymph nodes and spleen and he is receiving chemotherapy in form of acalbrutinib which is put on hold now Mild pancytopenia , mostly secondary to chemo therapy History of coronary artery disease status post stent and pacemaker Hypothyroidism History of seizure Plan: This is a pleasant 81 years old male who presents with elevated d-dimer Continue with heparin drip Hematology/oncology team consult Monitor creatinine and CBC. Hold Losartan, and lower the dose of metoprolol 25 mg down to 12.5 Continue with normal saline Labs and medication were reviewed.. Continue same treatment. Continue with symptomatic treatment. Resume home medication. Monitor lytes and vitals. DVT and GI prophylaxis. Further recommendations depends on the clinical course of the patient DVT prophylaxis: heparin GI Prophylaxis: Pepcid PT/OT: Pending Prognosis is guarded
[2022-03-04] MEDS ORDERED: FAMOTIDINE 20 MG/2 ML VIAL IV SCH (09:00)
[2022-03-04] MEDS: CYANOCOBALAMIN 500 MCG TAB PO SCH (09:29)
[2022-03-04] MEDS: METOPROLOL TARTRATE 12.5 MG TAB PO SCH ×2 (09:29→21:19)
[2022-03-04] MEDS: LEVOTHYROXINE 75 MCG TAB PO SCH (09:29)
[2022-03-04] MEDS: ASCORBIC ACID 500 MG TAB PO SCH (09:30)
[2022-03-04] MEDS: ATORVASTATIN 80 MG TAB PO SCH (09:30)
[2022-03-04] MEDS: levETIRAcetam 500 MG TAB PO SCH ×2 (09:30→21:18)
[2022-03-04] MEDS: CLOPIDOGREL 75 MG TAB PO SCH (09:30)
[2022-03-04] MEDS: levETIRAcetam 250 MG TAB PO SCH ×2 (09:31→21:18)
[2022-03-04] MEDS: SODIUM CHLORIDE 0.9% 1,000 ML IV SCH ×2 (09:33→21:28)
[2022-03-04 09:48] LABS: HCT 28.4 % (39.0-53.0); HGB 9.2 gm/dL (13.0-17.5); Hypochromasia Slight; MCH 33.5 pg (25.0-35.0); MCHC 32.4 g/dL (31.0-37.0); MCV 103.6 fL (80.0-100.0); Macrocytosis Slight; Mean Platelet Volume 8.2; Platelet Count 112 k/uL (150-450); RBC 2.74 m/uL (4.30-5.90); RDW 14.1 % (11.5-15.5); WBC 2.8 k/uL (3.8-10.6)
[2022-03-04 10:11] LABS: Albumin 3.3 g/dL (3.5-5.0); Calcium 8.4 mg/dL (8.4-10.2); Total Bilirubin 0.9 mg/dL (0.2-1.3); Total Protein 6.1 g/dL (6.3-8.2)
[2022-03-04 12:33] LABS: Band Neutrophils % 1 %; Basophils # (M) 0.03 k/uL (0-0.2); Lymphocytes # (M) 0.34 k/uL (1.0-4.8); Metamyelocytes # (M) 0.08 k/uL (0); Metamyelocytes % 3 %; Monocytes # (M) 0.59 k/uL (0-1.0); Neutrophils % (M) 55 %
[2022-03-04 12:40] LABS: Blast Cells # (M) 0.06 k/uL (0); Nucleated Red Blood Cells 1 /100 WBC (0-0); Polychromasia Present; Total Cells Counted 200
[2022-03-04] MEDS: HEPARIN SOD,PORK IN 0.45% NACL 25,000 UNIT in 0.45% NACL 1 250ML.BAG IV SCH (12:47)
--- NOTE | 2022-03-04 15:45 | US ---
EXAMINATION TYPE: US venous doppler duplex LE BI DATE OF EXAM: 03/04/2022 3:11 PM COMPARISON: 03/27/2021 CLINICAL HISTORY: 81-year-old male with swelling, assess for DVT SIDE PERFORMED: Bilateral TECHNIQUE: The lower extremity deep venous system is examined utilizing real time linear array sonog dione with graded compression, doppler sonography and color-flow sonography. FINDINGS: VESSELS IMAGED: Common Femoral Vein Deep Femoral Vein Greater Saphenous Vein * Femoral Vein Popliteal Vein Small Saphenous Vein * Proximal Calf Veins (* superficial vessels) Right Leg: Negative for DVT Left Leg: Negative for DVT IMPRESSION: No evidence for DVT within the bilateral lower extremities imaged from the groin to the upper calves.
--- NOTE | 2022-03-04 16:39 | NM ---
EXAMINATION TYPE: NM pul vent and perfuse DATE OF EXAM: 03/04/2022 COMPARISON: Radiographs 03/03/2022 HISTORY: 81-year-old male shortness of breath, assess for PE TECHNIQUE: Utilizing inhalation of 67.8 mCi Tc 99m DTPA aerosol and intravenous injection of 4.7 mCi of Tc 99m MAA, ventilation and perfusion images are acquired post injection in multiple projections. FINDINGS: Extensive heterogeneity in both ventilation and perfusion. Numerous scattered small, matched defects are present throughout both lungs. IMPRESSION: Numerous small matched defects bilaterally. Low probability for pulmonary embolus based on PIOPED cri teria.
[2022-03-04] MEDS ORDERED: FAMOTIDINE 20 MG TAB PO SCH (21:00)
--- NOTE | 2022-03-04 21:37 | P.CONS ---
History of Present Illness - Reason for Consult Consult date: 03/04/22 - Chief Complaint Chest pain, inability to eat and SOB - History of Present Illness f health until about 08/22. At that time the patient developed multiple GI complaints including bloating, intermittent cramping, and also diarrhea ranging from 5 up to 12 bowel movements per day. He also had alternating periods of constipation. These symptoms persisted and progressed. Associated symptoms inc luded weight loss of about 30 pounds plus, as well as loss of muscle mass and generalized weakness. The patient was seen by gastroenterology, Dr. Gibbs, and had a colonoscopy as well as EGD on 02/18/21. Biopsies were taken from multiple sites including gastric antrum, duodenum, esophagus and terminal ileum as well as right and left colon and rectum. All these areas showed involvement with dense atypical lymphocytic infiltrate with features consistent with mantle cell lymphoma. The case was discussed with gastroenterology, and the patient was referred here. He denied any prior history of malignancy. PET CT revealed extensive adenopathy above and below the diaphragm, especially in the meseneteric nodes. The pt was recommended treatment with Bendamustine - Rituxan. He started that on 03/19/21 and is s/p 6 cycles, completing those in 08/18/21. 03/26/21-patient is here today status post first cycle of BR. He has no complaints. His ended up passing away. 05/14/21-Pt here today for hospital f/u, he was in for 4 days for sepsis, temp was 102F when he went in. He is completing levaquin and acyclovir Rx. He is feeling good, no s/s fever, he does feel he has a appetite, his BM was very labile, diarrhea could be up 6 a day-this is better. He is going to be started on GCSF with next cycle. He has c/o of pain in the testicles, denies dysuria, hematuria, s/s of infection. No other c/o, questions or concerns. CT scans after 3 cycles showed a marked response with near resolution of abnormal adenopathy. The patient was seen on 07/27/21 at his own request. He stated that about 2 days ago he developed some redness and swelling in the mid left forearm. This had increased progressively and was painful. He denied any fevers or chills. Dopplers showed a superficial cephalic vein thrombus for which warm compresses and aspirin was recommended we discussed maintenance immunotherapy, in the context of the ongoing pandemic. The patient was referred to the [facility] for an opinion. They felt that given the high-risk nature of his disease, based on risk versus benefit , maintenance would be recommended. [facility] recommended to provide a higher level of protection. he started maintenance Rituxan on 12/11/21. Follow-up colonoscopy in 12/22 was negative. He denied any f/c/n/v. left upper extremity symptoms have improved. He did develop similar superficial thrombosis on the right approximately. This has resolved with warm compresses and aspirin. Appetite is fair. Diarrhea slowed down and then resolved by mid 04/22. In fact he has had episodes of constipation, relieved by stool softener. His weight is stable. No blood in the stool/new LAD/abd pain. His endurance and strength are fair. His LE swelling has been quite responsive to compression stockings. he had developed an extensive, pruritic rash in the axillary area, which has resolved. he has intermittent swelling of the RLE, with dopplers on 03/27/21 negative His ROS is otherwise as per HPI and negative out of 10 02/15/22-Started calquence 4 days ago. Little wobbly when walking, legs feel a little weak, does feel ok today though. Mild swelling in the lower extremities. Denies any other c/o. Able to swallow pills ok, 8 AM/PM, lots of water. Denies bleeding, palpitations, chest fluttering. He is going to take his dog for a walk tonight. 02/24/22-Pt here for f/u, he has been on calquence for 12 days. His muscles are still feeling weak, but he is still ambulatory. He is walking his dog. Denies SOB, he says that occasionally he will have right sided chest discomfort. He is also still having the "band" of pain across his abdomen, he uses [facility] for this and so far that has helped. Did have 1 night of diarrhea but that resolved. He is noting decreased blood pressure readings. Occasional dizziness when changing positions. No BABB. Denies nose bleeds, hemoptysis, hematuria, black or bloody stool. He was seen in office yesterday stated he was not feeling better and has not been able to eat or drink, chest pain and SOB he was sent to ER by staff via wheelchair. Renal function increased therefore CTA was not able to be done, since d dimer elevated he was started on heparin drip Review of Systems All systems: negative Constitutional: Reports as per HPI Past Medical History Past Medical History: Thyroid Disorder Additional Past Medical History / Comment(s): LBBB, hx gout, occ problem with balance, swollen hand from wasp sting, vertigo, lymphoma Last Myocardial Infarction Date:: 2012 History of Any Multi-Drug Resistant Organisms: None Reported Past Surgical History: Heart Catheterization With Stent, Orthopedic Surgery, Pacemaker Additional Past Surgical History / Comment(s): total 4 stents, removal of salivary gland and lymph node, cataracts, left knee arthroscopy Past Anesthesia/Blood Transfusion Reactions: Motion Sickness Date of Last Stent Placement:: 2012 Type of Cardiac Device: Permanent Pacemaker Device Placement Date:: 2012 Past Psychological History: No Psychological Hx Reported Smoking Status: Former smoker Past Alcohol Use History: None Reported Past Drug Use History: None Reported - Past Family History Mother Family Medical History: Cancer Sister(s) Family Medical History: Cancer Medications and Allergies Home Medications Medication Instructions Recorded Confirmed Type Atorvastatin [Lipitor] 80 mg PO -BRKFST 05/30/15 03/03/22 History Clopidogrel Bisulfate [Plavix] [facility] 05/30/15 03/03/22 History Midodrine HCl [ProAmatine] 2.5 mg PO DAILY 05/30/15 03/03/22 History Cholecalciferol [Vitamin D3 (25 50 mcg PO DAILY 05/07/21 03/03/22 History Mcg = 1000 Iu)] Cyanocobalamin (Vitamin B-12) 1,000 mcg PO DAILY 05/07/21 03/03/22 History [Vitamin B-12] Levothyroxine Sodium [Synthroid] 75 mcg PO DAILY@0630 05/07/21 03/03/22 History levETIRAcetam [Keppra] 1,000 mg PO BID 05/07/21 03/03/22 History Metoprolol Succinate [Toprol XL] 25 mg PO DAILY 12/04/21 03/03/22 History Acalabrutinib [Calquence] 100 mg PO DAILY 03/03/22 03/03/22 History Allopurinol [Zyloprim] 100 mg PO W/BRKFST 03/03/22 03/03/22 History Ascorbic Acid [Vitamin C] 500 mg PO DAILY 03/03/22 03/03/22 History Calcium Carbonate [Tums] 500 mg PO BID PRN 03/03/22 03/03/22 History Famotidine 40 mg PO HS 03/03/22 03/03/22 History HYDROcodone/APAP 10-325MG [[place] 1 tab PO Q6HR PRN 03/03/22 03/03/22 History 10-325] Losartan Potassium [Cozaar] 12.5 mg PO PC-BRKFST 03/03/22 03/03/22 History Sennosides/Docusate Sodium [Senna 1 cap PO HS 03/03/22 03/03/22 History Plus 8.6-50 mg Softgel] levETIRAcetam [Keppra] 250 mg PO BID 03/03/22 03/03/22 History Allergies Allergy/AdvReac Type Severity Reaction Status Date / Time No Known Allergies Allergy Verified 03/03/22 15:41 Physical Exam Vitals: Vital Signs Temp Pulse Pulse Resp BP BP Pulse Ox 03/04/22 08:00 97.6 F 81 20 135/76 96 03/04/22 04:00 97.6 F 76 18 130/63 96 03/04/22 02:00 60 16 03/04/22 00:00 60 16 03/03/22 21:10 97.6 F 88 18 123/60 98 03/03/22 21:00 88 18 03/03/22 20:20 91 18 108/64 97 03/03/22 18:35 71 16 108/91 95 03/03/22 15:39 98 F 94 20 98/64 99 Intake and Output 03/03/22 03/04/22 03/04/22 22:59 06:59 14:59 Intake Total 180 Output Total 100 200 Balance -100 -200 180 Intake: Oral 180 Output: Urine 100 200 Other: Voiding Method Urinal Urinal Urinal Weight 73.482 kg - Constitutional General appearance: cooperative, thin - EENT Eyes: EOMI ENT: hard of hearing - Neck Neck: normal ROM - Respiratory Respiratory: bilateral: diminished - Cardiovascular Rhythm: regularly irregular - Gastrointestinal General gastrointestinal: soft - Integumentary Integumentary: pale - Neurologic Neurologic: CNII-XII intact - Musculoskeletal Musculoskeletal: generalized weakness - Psychiatric Psychiatric: A&O x's 3, appropriate affect Results CBC & Chem 7: 03/04/22 09:23 03/04/22 09:23 Labs: Abnormal Lab Results - Last 24 Hours (Table) 03/03/22 03/03/22 03/03/22 Range/Units 15:59 15:59 15:59 WBC 3.3 L (3.8-10.6) k/uL RBC 3.03 L (4.30-5.90) m/uL Hgb 10.0 L (13.0-17.5) gm/dL Hct 30.8 L (39.0-53.0) % MCV 101.8 H (80.0-100.0) fL Plt Count 114 L (150-450) k/uL Lymphocytes # (Manual) 0.20 L (1.0-4.8) k/uL Metamyelocytes # (Man) 0.03 H (0) k/uL Myelocytes # (Manual) 0.03 H (0) k/uL Nucleated RBCs 1 H (0-0) /100 WBC APTT 20.2 L (22.0-30.0) sec D-Dimer 5.62 H (<0.60) mg/L FEU Carbon Dioxide (22-30) mmol/L BUN 27 H (9-20) mg/dL Creatinine 1.86 H (0.66-1.25) mg/dL Glucose 104 H (74-99) mg/dL Alkaline Phosphatase 141 H (38-126) U/L Total Protein (6.3-8.2) g/dL Albumin (3.5-5.0) g/dL 03/04/22 03/04/22 03/04/22 Range/Units 01:33 09:23 09:23 WBC 2.8 L (3.8-10.6) k/uL RBC 2.74 L (4.30-5.90) m/uL Hgb 9.2 L (13.0-17.5) gm/dL Hct 28.4 L (39.0-53.0) % MCV 103.6 H (80.0-100.0) fL Plt Count 112 L (150-450) k/uL Lymphocytes # (Manual) (1.0-4.8) k/uL Metamyelocytes # (Man) (0) k/uL Myelocytes # (Manual) (0) k/uL Nucleated RBCs (0-0) /100 WBC APTT 50.2 H (22.0-30.0) sec D-Dimer (<0.60) mg/L FEU Carbon Dioxide 20 L (22-30) mmol/L BUN 28 H (9-20) mg/dL Creatinine 1.87 H (0.66-1.25) mg/dL Glucose (74-99) mg/dL Alkaline Phosphatase (38-126) U/L Total Protein 6.1 L (6.3-8.2) g/dL Albumin 3.3 L (3.5-5.0) g/dL 03/04/22 Range/Units 09:29 WBC (3.8-10.6) k/uL RBC (4.30-5.90) m/uL Hgb (13.0-17.5) gm/dL Hct (39.0-53.0) % MCV (80.0-100.0) fL Plt Count (150-450) k/uL Lymphocytes # (Manual) (1.0-4.8) k/uL Metamyelocytes # (Man) (0) k/uL Myelocytes # (Manual) (0) k/uL Nucleated RBCs (0-0) /100 WBC APTT 50.6 H (22.0-30.0) sec D-Dimer (<0.60) mg/L FEU Carbon Dioxide (22-30) mmol/L BUN (9-20) mg/dL Creatinine (0.66-1.25) mg/dL Glucose (74-99) mg/dL Alkaline Phosphatase (38-126) U/L Total Protein (6.3-8.2) g/dL Albumin (3.5-5.0) g/dL Comments: pulm perfusion Assessment and Plan (1) Dyspnea Narrative/Plan: Presumatve PE, however CTA unable to be done with renal function, therefore VQ ordered as well as doppler Current Visit: Yes Status: Acute Code(s): R06.00 - DYSPNEA, UNSPECIFIED SNOMED Code(s): 803351583 (2) Mantle cell lymphoma Narrative/Plan: Concern of progression Monitor daily cbc and renal function Current Visit: No Status: Acute Code(s): C83.10 - MANTLE CELL LYMPHOMA, UNSPECIFIED SITE SNOMED Code(s): 958959896 Plan: Dr. Sr: I have completed the full history and physical and developed the impression and plan, agree with dictation, dictated as a ascribe
[2022-03-04] MEDS: FAMOTIDINE 20 MG TAB PO SCH (21:40)
[2022-03-05] MEDS: HEPARIN SOD,PORK IN 0.45% NACL 25,000 UNIT in 0.45% NACL 1 250ML.BAG IV SCH (06:27)
[2022-03-05] MEDS: LEVOTHYROXINE 75 MCG TAB PO SCH (06:27)
[2022-03-05] MEDS ORDERED: LEVOTHYROXINE 75 MCG TAB PO SCH (06:30)
[2022-03-05 08:17] LABS: HCT 27.4 % (39.0-53.0); HGB 8.9 gm/dL (13.0-17.5); Hypochromasia Slight; MCH 33.6 pg (25.0-35.0); MCHC 32.5 g/dL (31.0-37.0); MCV 103.4 fL (80.0-100.0); Macrocytosis Slight; Mean Platelet Volume 8.9; Platelet Count 111 k/uL (150-450); RBC 2.65 m/uL (4.30-5.90); RDW 14.3 % (11.5-15.5); WBC 3.2 k/uL (3.8-10.6)
[2022-03-05 08:29] LABS: Total Protein 6.2 g/dL (6.3-8.2); Uric Acid 6.7 mg/dL (3.5-8.5)
[2022-03-05 08:31] LABS: Albumin 3.2 g/dL (3.5-5.0); Calcium 8.4 mg/dL (8.4-10.2); Magnesium 1.9 mg/dL (1.6-2.3); Potassium 4.3 mmol/L (3.5-5.1); Total Bilirubin 0.9 mg/dL (0.2-1.3)
--- NOTE | 2022-03-05 09:55 | P.NPCON ---
History of Present Illness - Reason for Consult acute renal failure - History of Present Illness Patient is an 81-year-old male who was recently diagnosed with mantle cell lymphoma in the fall of 2020. He is status post chemotherapy and was recently started on new chemotherapy. Patient developed increased weakness. He had some chest discomfort. Patient had not been eating or drinking much for the past few days prior to admission. There was concern for PE and patient was admitted to the hospital. VQ scan was done which showed low probability of PE Serum creatinine has been about 1.8 mg/dL and increased to 1.9 today. Urine output has been low. 300 mL noted over 24 hours. Post void residual residual was 194. Systolic blood pressure was low on initial admission with systolic in the 90s. Currently around 130 mmHg Patient was on Cozaar at home this is currently discontinued Review of Systems As per HPI Past Medical History Past Medical History: Thyroid Disorder Additional Past Medical History / Comment(s): LBBB, hx gout, occ problem with balance, swollen hand from wasp sting, vertigo, lymphoma Last Myocardial Infarction Date:: 2012 History of Any Multi-Drug Resistant Organisms: None Reported Past Surgical History: Heart Catheterization With Stent, Orthopedic Surgery, Pacemaker Additional Past Surgical History / Comment(s): total 4 stents, removal of salivary gland and lymph node, cataracts, left knee arthroscopy Past Anesthesia/Blood Transfusion Reactions: Motion Sickness Date of Last Stent Placement:: 2012 Type of Cardiac Device: Permanent Pacemaker Device Placement Date:: 2012 Past Psychological History: No Psychological Hx Reported Smoking Status: Former smoker Past Alcohol Use History: None Reported Past Drug Use History: None Reported - Past Family History Mother Family Medical History: Cancer Sister(s) Family Medical History: Cancer Medications and Allergies Home Medications Medication Instructions Recorded Confirmed Type Atorvastatin [Lipitor] 80 mg PO PC-BRKFST 05/30/15 03/03/22 History Clopidogrel Bisulfate [Plavix] 75 mg PO PC-BRKFST 05/30/15 03/03/22 History Midodrine HCl [ProAmatine] 2.5 mg PO DAILY 05/30/15 03/03/22 History Cholecalciferol [Vitamin D3 (25 50 mcg PO DAILY 05/07/21 03/03/22 History Mcg = 1000 Iu)] Cyanocobalamin (Vitamin B-12) 1,000 mcg PO DAILY 05/07/21 03/03/22 History [Vitamin B-12] Levothyroxine Sodium [Synthroid] 75 mcg PO DAILY@0630 05/07/21 03/03/22 History levETIRAcetam [Keppra] 1,000 mg PO BID 05/07/21 03/03/22 History Metoprolol Succinate [Toprol XL] 25 mg PO DAILY 12/04/21 03/03/22 History Acalabrutinib [Calquence] 100 mg PO DAILY 03/03/22 03/03/22 History Allopurinol [Zyloprim] 100 mg PO W/BRKFST@30 03/03/22 03/05/22 History Ascorbic Acid [Vitamin C] 500 mg PO DAILY 03/03/22 03/03/22 History Calcium Carbonate [Tums] 500 mg PO BID PRN 03/03/22 03/03/22 History Famotidine 40 mg PO HS 03/03/22 03/03/22 History HYDROcodone/APAP 10-325MG [[place] 1 tab PO Q6HR PRN 03/03/22 03/03/22 History 10-325] Losartan Potassium [Cozaar] 12.5 mg PO PC-BRKFST 03/03/22 03/03/22 History Sennosides/Docusate Sodium [Senna 1 cap PO HS 03/03/22 03/03/22 History Plus 8.6-50 mg Softgel] levETIRAcetam [Keppra] 250 mg PO BID 03/03/22 03/03/22 History Allergies Allergy/AdvReac Type Severity Reaction Status Date / Time No Known Allergies Allergy Verified 03/03/22 15:41 Physical Exam Vitals: Vital Signs Temp Pulse Resp BP Pulse Ox 03/05/22 04:00 84 16 131/66 97 03/05/22 02:00 78 16 03/05/22 00:00 97.2 F L 78 16 133/70 96 03/04/22 20:00 98.5 F 88 16 142/64 96 03/04/22 16:00 97.5 F L 85 16 135/65 96 03/04/22 12:00 97.5 F L 77 16 127/68 96 Intake and Output 03/04/22 03/05/22 03/05/22 22:59 06:59 14:59 Intake Total 945.6 233.677 Output Total 200 100 150 Balance 745.6 133.677 -150 Intake: IV 105.6 Heparin Sod,Pork in 0.45% 105.6 NaCl 25,000 unit In 0.45 % NaCl 1 250ml.bag @ 18 UNITS/KG/HR 13.227 mls/hr IV .[id number] [facility] Rx#: [id number] Intake, IV Titration 600 233.677 Amount Heparin Sod,Pork in 0.45% 233.677 NaCl 25,000 unit In 0.45 % NaCl 1 250ml.bag @ 18 UNITS/KG/HR 13.227 mls/hr IV .[id number] [facility] Rx#: [id number] Sodium Chloride 0.9% 1, 600 000 ml @ 75 mls/hr IV . [id number] [facility] Rx#:[id number] Oral 240 Output: Urine 200 100 150 Other: Voiding Method Urinal Urinal Patient is awake, comfortable He is weak No acute distress Alert oriented 3 Examination of the heart S1 and S2 Examination lungs bilateral breath sounds are heard Abdomen is soft nontender Examination of lower extremities shows trace edema right lower extremity. PEARL PELLER exam grossly intact Results - Lab Results Most recent lab results Calcium 8.4 mg/dL (8.4-10.2) 03/05/22 07:46 Magnesium 1.9 mg/dL (1.6-2.3) 03/05/22 07:46 03/05/22 07:46 03/05/22 07:46 Assessment and Plan Assessment: 1. Acute kidney injury, oliguric. Etiology most likely hypotension and hypoperfusion. No urine retention noted. Check ultrasound of the kidneys and check urine analysis. Patient is maintained on IV fluids. 2. Chronic kidney disease NKF stage III with previous creatinine 1.1-1.3 mg/dL as of 2021. Previous UA was benign. 3. Mantle cell lymphoma maintained on chemotherapy 4. Coronary artery disease Plan: Continue with IV fluids Check UA Check ultrasound of the kidneys I will ever dose of Lasix if urine output remains low Avoid any nephrotoxic agents. Continue to hold off on angiotensin receptor blockers
[2022-03-05 10:05] LABS: Band Neutrophils % 2 %; Basophils # (M) 0.03 k/uL (0-0.2); Lymphocytes # (M) 0.48 k/uL (1.0-4.8); Metamyelocytes # (M) 0.03 k/uL (0); Metamyelocytes % 1 %; Myelocytes # (M) 0.06 k/uL (0); Myelocytes % 2 %; Neutrophils % (M) 50 %; Nucleated Red Blood Cells 0 /100 WBC (0-0); Total Cells Counted 200
[2022-03-05 10:12] LABS: Polychromasia Present
[2022-03-05] MEDS: SODIUM CHLORIDE 0.9% 1,000 ML IV SCH ×2 (10:21→23:28)
[2022-03-05] MEDS: METOPROLOL TARTRATE 12.5 MG TAB PO SCH ×2 (10:21→21:50)
[2022-03-05] MEDS: ASCORBIC ACID 500 MG TAB PO SCH (10:21)
[2022-03-05] MEDS: ATORVASTATIN 80 MG TAB PO SCH (10:21)
[2022-03-05] MEDS: CYANOCOBALAMIN 500 MCG TAB PO SCH (10:21)
[2022-03-05] MEDS: levETIRAcetam 500 MG TAB PO SCH ×2 (10:21→21:50)
[2022-03-05] MEDS: levETIRAcetam 250 MG TAB PO SCH ×2 (10:22→21:50)
[2022-03-05] MEDS: CLOPIDOGREL 75 MG TAB PO SCH (10:22)
[2022-03-05] MEDS: allopurinoL 100 MG TAB PO SCH (10:24)
--- NOTE | 2022-03-05 13:32 | US ---
EXAMINATION TYPE: US kidneys/renal and bladder DATE OF EXAM: 03/05/2022 COMPARISON: Ultrasound abdomen February 23, 2019 CLINICAL HISTORY: rosalind. ROSLAIND EXAM MEASUREMENTS: Right Kidney: 9.9 x 4.4 x 4.3 cm Left Kidney: 10.3 x 4.1 x 5.9 cm Right Kidney: A thin wall cyst was seen on the lateral border measuring 2.0 x 1.9 x 1.6 cm Left Kidney: No hydronephrosis or masses seen Bladder: wnl Bilateral Jets seen: No There is no evidence for hydronephrosis at this point in time. No nephrolithiasis is seen. There is 2.0 cm partially exophytic thin-walled cyst midpole level right kidney with thin internal septa redem onstrated not significantly changed from prior. The urinary bladder is adequately distended. IMPRESSION: No hydronephrosis is seen bilaterally.
--- NOTE | 2022-03-05 17:20 | P.PN ---
Subjective Progress Note Date: 03/05/22 Principal diagnosis: Concern progression ROSALIND Renal function not improving, awaiting uric acid, LDH increased. No evidence of thrombus He is still not feeling better. Objective - Vital Signs Vital signs: Vital Signs Temp 97.7 F 03/05/22 08:00 Pulse 89 03/05/22 16:00 Resp 18 03/05/22 14:00 BP 129/62 03/05/22 16:00 Pulse Ox 99 03/05/22 16:00 FiO2 Intake & Output 03/04/22 03/05/22 03/05/22 18:59 06:59 18:59 Intake Total 1359.057 233.677 700 Output Total 194 300 150 Balance 1165.057 -66.323 550 Weight 73.482 kg Intake: IV 105.6 100 Heparin Sod,Pork in 0.45% 105.6 100 NaCl 25,000 unit In 0.45 % NaCl 1 250ml.bag @ 18 UNITS/KG/HR 13.227 mls/hr IV .[id number] [facility] Rx#: [id number] Intake, IV Titration 833.457 233.677 600 Amount Heparin Sod,Pork in 0.45% 233.457 233.677 NaCl 25,000 unit In 0.45 % NaCl 1 250ml.bag @ 18 UNITS/KG/HR 13.227 mls/hr IV .[id number] [facility] Rx#: [id number] Sodium Chloride 0.9% 1, 600 600 000 ml @ 75 mls/hr IV . [id number] [facility] Rx#:[id number] Oral 420 Output: Urine 300 150 Post Void Residual 194 Other: Voiding Method Urinal Urinal Urinal - Exam - Constitutional General appearance: cooperative, thin - EENT Eyes: EOMI ENT: hard of hearing - Neck Neck: normal ROM - Respiratory Respiratory: bilateral: diminished - Cardiovascular Rhythm: regularly irregular - Gastrointestinal General gastrointestinal: soft - Integumentary Integumentary: pale - Neurologic Neurologic: CNII-XII intact - Musculoskeletal Musculoskeletal: generalized weakness - Psychiatric Psychiatric: A&O x's 3, appropriate affect - Labs CBC & Chem 7: 03/05/22 07:46 03/05/22 07:46 Labs: Abnormal Lab Results - Last 24 Hours (Table) 03/05/22 03/05/22 03/05/22 Range/Units 07:46 07:46 07:46 WBC 3.2 L (3.8-10.6) k/uL RBC 2.65 L (4.30-5.90) m/uL Hgb 8.9 L (13.0-17.5) gm/dL Hct 27.4 L (39.0-53.0) % MCV 103.4 H (80.0-100.0) fL Plt Count 111 L (150-450) k/uL Lymphocytes # (Manual) 0.48 L (1.0-4.8) k/uL Metamyelocytes # (Man) 0.03 H (0) k/uL Myelocytes # (Manual) 0.06 H (0) k/uL APTT 53.6 H (22.0-30.0) sec BUN 31 H (9-20) mg/dL Creatinine 1.91 H (0.66-1.25) mg/dL Lactate Dehydrogenase 834 H (313-618) U/L Total Protein 6.2 L (6.3-8.2) g/dL Albumin 3.2 L (3.5-5.0) g/dL Assessment and Plan (1) Dyspnea Narrative/Plan: Presumatve PE, however CTA unable to be done with renal function, therefore VQ ordered as well as doppler Current Visit: Yes Status: Acute Code(s): R06.00 - DYSPNEA, UNSPECIFIED SNOMED Code(s): 532897734 (2) Mantle cell lymphoma Narrative/Plan: Concern of progression Monitor daily cbc and renal function Current Visit: No Status: Acute Code(s): C83.10 - MANTLE CELL LYMPHOMA, U NSPECIFIED SITE SNOMED Code(s): 103052128 (3) Acute kidney failure Narrative/Plan: nephrology following await uric acid monitor tumor lysis Current Visit: Yes Status: Acute Code(s): N17.9 - ACUTE KIDNEY FAILURE, UNSPECIFIED SNOMED Code(s): 43313645 Plan: COntinue IV Hydration Check Tumor Lysis Await Uric Acid Can stop Heparin from oncology standpoint Dr. Sr: I have completed the full history and physical and developed the full ipression and plan, agree with above dictation, dictated as a scribe
--- NOTE | 2022-03-05 18:07 | CA ---
Transthoracic Echo Report Name: Sanford Castellon Age: 81 Gender: M : 1940 Exam Date: 03/05/2022 07:55 Exam Location: [facility] Ht (in): 71 Wt (lb): 162 Ordering Physician: Baldemar Merida MD Attending/Referring Phys: [id number], [employer] Silvana Yarbrough, [facility] Procedure CPT: Indications: Rule out heart disease Cardiac Hx: Pacemaker Technical Quality: Good Contrast 1: Total Dose (mL): Contrast 2: Total Dose (mL): MEASUREMENTS (Male / Female) Normal Values 2D ECHO LV Diastolic Diameter PLAX 3.9 cm 4.2 - 5.9 / 3.9 - 5.3 cm LV Systolic Diameter PLAX 3.0 cm IVS Diastolic Thickness 1.0 cm 0.6 - 1.0 / 0.6 - 0.9 cm LVPW Diastolic Thickness 1.2 cm 0.6 - 1.0 / 0.6 - 0.9 cm LV Relative Wall Thickness 0.6 RV Internal Dim ED PLAX 3.6 cm LVOT Diameter 2.2 cm LA Systolic Diameter LX 2.9 cm 3.0 - 4.0 / 2.7 - 3.8 cm LA Volume 31.8 cm??? 18 - 58 / 22 - 52 cm??? M-MODE Aortic Root Diameter MM 3.5 cm MV E Point Septal Separation 0.6 cm AV Cusp Separation MM 2.1 cm DOPPLER AV Peak Velocity 128.8 cm/s AV Peak Gradient 6.6 mmHg MV Area PHT 5.0 cm??? Mitral E Point Velocity 112.1 cm/s Mitral A Point Velocity 94.9 cm/s Mitral E to A Ratio 1.2 MV Deceleration Time 153.0 ms MV E' Velocity 6.0 cm/s Mitral E to MV E' Ratio 18.6 TR Peak Velocity 292.0 cm/s TR Peak Gradient 34.1 mmHg Right Ventricular Systolic Press 39.0 mmHg FINDINGS Left Ventricle Left ventricular ejection fraction is estimated at 60-65 %. Left ventricular cavity size normal. Borderline left ventricular hypertrophy. Right Ventricle Mild right ventricular dilatation. Mild pulmonary hypertension. Right Atrium Normal right atrial size. Left Atrium Normal left atrial size. No evidence for an atrial septal defect. Mitral Valve Mitral valve thickened. Aortic Valve Focal thickening of the aortic valve cusps. Mild aortic regurgitation. Tricuspid Valve Mild tricuspid regurgitation. Pulmonic Valve Trace to mild pulmonic regurgitation. Pericardium Normal pericardium. Aorta Normal size aortic root and proximal ascending aorta. 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 No lateral e' was performed to evaluate annulus reversus. Consider workup of constrictive pericarditis of clinical concern. Mild tricuspid regurgitation Previewed by: Dr. Guille Nunez DO (Electronically Signed) Final Date: 05 March 2022 18:06
--- NOTE | 2022-03-05 20:04 | P.PN ---
Subjective This is a pleasant 9 years old male with past medical history of hypothyroidism, coronary artery disease status post stent and pacemaker, vertigo, lymphoma since 2012, left bundle-branch block. Seizure Was sent from her medicine doctor rule out pulmonary embolism. 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 His oncologist is Dr. Grady, and he was getting chemotherapy last summer, end of August and switched immunotherapy after that which did not help him much so started on a new chemotherapy but feels has lowered into once a day after he developed some low platelet count as he states. For the last week he was getting progressive shortness of breath with wounding and left-sided pleuritic-like chest pain that increases with deep breathing and movement and felt like sharp, He denies any vomiting or diarrhea, he has some difficulty to initiate urination but no dysuria Vitals are stable. wbc of 3.3, hemoglobin 10.0 and platelet count 114 D-dimer is elevated at 5.6. INR is normal is 0.9. Creatinine is elevated at 1.8. Last month was 1.4 and before that was ranging 1.0-1.3. Emergency room patient was started on heparin drip and normal saline 03/05/2022 Patient awake and alert, sitting check comfortable and pleasant with no distress. His blood pressure improved and systolic is 128. However he has low urine output and his creatinine went up to 1.9. He remains on normal saline at 75 mL/h with nephrology team on the case. They recommended to keep holding his angiotensin receptor ruslan. His VQ scan showed low probability for PE, oncology/hematology team recommended to stop heparin drip. Patient understood started on subcu heparin. Also echocardiogram showing evidence of constrictive pericarditis however patient's with no symptoms. Ejection fraction is 60-65% Objective - Vital Signs Vital signs: Vital Signs Temp 97.2 F L 03/05/22 00:00 Pulse 84 03/05/22 04:00 Resp 16 03/05/22 04:00 BP 131/66 03/05/22 04:00 Pulse Ox 97 03/05/22 04:00 FiO2 Intake & Output 03/04/22 03/05/22 03/05/22 18:59 06:59 18:59 Intake Total 1359.057 233.677 Output Total 194 300 150 Balance 1165.057 -66.323 -150 Weight 73.482 kg Intake: IV 105.6 Heparin Sod,Pork in 0.45% 105.6 NaCl 25,000 unit In 0.45 % NaCl 1 250ml.bag @ 18 UNITS/KG/HR 13.227 mls/hr IV .[id number] [facility] Rx#: [id number] Intake, IV Titration 833.457 233.677 Amount Heparin Sod,Pork in 0.45% 233.457 233.677 NaCl 25,000 unit In 0.45 % NaCl 1 250ml.bag @ 18 UNITS/KG/HR 13.227 mls/hr IV .[id number] [facility] Rx#: [id number] Sodium Chloride 0.9% 1, 600 000 ml @ 75 mls/hr IV . [id number] [facility] Rx#:[id number] Oral 420 Output: Urine 300 150 Post Void Residual 194 Other: Voiding Method Urinal Urinal - Exam GENERAL: The patient is alert and oriented x3, not in any acute distress. Well developed, well nourished. HEENT: Pupils are round and equally reacting to light. EOMI. No scleral icterus. No conjunctival pallor. Normocephalic, atraumatic. No pharyngeal erythema. No thyromegaly. CARDIOVASCULAR: S1 and S2 present. No murmurs, rubs, or gallops. PULMONARY: Chest is clear to auscultation, no wheezing or crackles. ABDOMEN: Soft, nontender, nondistended, normoactive bowel sounds. No palpable organomegaly. MUSCULOSKELETAL: No joint swelling or deformity. EXTREMITIES: No cyanosis, clubbing, or pedal edema. NEUROLOGICAL: Gross neurological examination did not reveal any focal deficits. SKIN: No rashes. no petechiae. - Labs CBC & Chem 7: 03/05/22 07:46 03/05/22 07:46 Labs: Abnormal Lab Results - Last 24 Hours (Table) 03/04/22 03/05/22 03/05/22 Range/Units 09:23 07:46 07:46 WBC 3.2 L (3.8-10.6) k/uL RBC 2.65 L (4.30-5.90) m/uL Hgb 8.9 L (13.0-17.5) gm/dL Hct 27.4 L (39.0-53.0) % MCV 103.4 H (80.0-100.0) fL Plt Count 111 L (150-450) k/uL Blast Cells % 2 H* % Lymphocytes # (Manual) 0.34 L 0.48 L (1.0-4.8) k/uL Metamyelocytes # (Man) 0.08 H 0.03 H (0) k/uL Myelocytes # (Manual) 0.06 H (0) k/uL Blast Cells # (Man) 0.06 H (0) k/uL Nucleated RBCs 1 H (0-0) /100 WBC APTT 53.6 H (22.0-30.0) sec BUN (9-20) mg/dL Creatinine (0.66-1.25) mg/dL Lactate Dehydrogenase (313-618) U/L Total Protein (6.3-8.2) g/dL Albumin (3.5-5.0) g/dL 03/05/22 Range/Units 07:46 WBC (3.8-10.6) k/uL RBC (4.30-5.90) m/uL Hgb (13.0-17.5) gm/dL Hct (39.0-53.0) % MCV (80.0-100.0) fL Plt Count (150-450) k/uL Blast Cells % % Lymphocytes # (Manual) (1.0-4.8) k/uL Metamyelocytes # (Man) (0) k/uL Myelocytes # (Manual) (0) k/uL Blast Cells # (Man) (0) k/uL Nucleated RBCs (0-0) /100 WBC APTT (22.0-30.0) sec BUN 31 H (9-20) mg/dL Creatinine 1.91 H (0.66-1.25) mg/dL Lactate Dehydrogenase 834 H (313-618) U/L Total Protein 6.2 L (6.3-8.2) g/dL Albumin 3.2 L (3.5-5.0) g/dL Assessment and Plan Assessment: Exertional dyspnea and aortic chest pain with elevated d-dimer . VQ scan showed low probability for PE, Doppler is negative for DVT Acute kidney injury, versus progressive chronic kidney disease. Unknown baseline. Most likely secondary to hypovolemia Hypovolemia and dehydration, present on admission Constrictive pericarditis Patient is a with Mantle cell lymphoma intestinal, lymph nodes and spleen and he is receiving chemotherapy in form of acalbrutinib which is put on hold now Mild pancytopenia , mostly secondary to chemo therapy History of coronary artery disease status post stent and pacemaker Hypothyroidism History of seizure Plan: This is a pleasant 81 years old male who presents with elevated d-dimer switch heparin drip to subcu heparin prior web site specialist team recommendation Hematology/oncology team consult Monitor creatinine and CBC. Hold Losartan, and lower the dose of metoprolol 25 mg down to 12.5. Nephrology consult Continue with normal saline Labs and medication were reviewed.. Continue same treatment. Continue with symptomatic treatment. Resume home medication. Monitor lytes and vitals. DVT and GI prophylaxis. Further recommendations depends on the clinical course of the patient DVT prophylaxis: heparin GI Prophylaxis: Pepcid PT/OT: Pending Prognosis is guarded
[2022-03-05] MEDS: FAMOTIDINE 20 MG TAB PO SCH (21:50)
[2022-03-05] MEDS: HYDROcodone/APAP 10-325MG 1 EACH TAB PO PRN (21:59)
[2022-03-06] MEDS: HEPARIN SODIUM,PORCINE/PF 5,000 UNIT/0.5 ML SYRINGE SQ SCH ×3 (02:40→15:54)
[2022-03-06] MEDS: LEVOTHYROXINE 75 MCG TAB PO SCH (06:18)
[2022-03-06 07:11] LABS: HCT 27.5 % (39.0-53.0); Hypochromasia Slight; MCH 33.8 pg (25.0-35.0); MCHC 32.6 g/dL (31.0-37.0); MCV 103.8 fL (80.0-100.0); Macrocytosis Slight; Mean Platelet Volume 9.8; Platelet Count 118 k/uL (150-450); RBC 2.65 m/uL (4.30-5.90); RDW 14.5 % (11.5-15.5); WBC 3.5 k/uL (3.8-10.6)
[2022-03-06 07:29] LABS: Eosinophils # (M) 0.07 k/uL (0-0.7); Metamyelocytes # (M) 0.07 k/uL (0); Metamyelocytes % 2 %; Monocytes # (M) 0.49 k/uL (0-1.0); Myelocytes # (M) 0.04 k/uL (0); Myelocytes % 1 %; Neutrophils # (M) 2.24 k/uL (1.3-7.7); Neutrophils % (M) 64 %; Nucleated Red Blood Cells 0 /100 WBC (0-0); Polychromasia Present; Total Cells Counted 100
[2022-03-06 07:41] LABS: Albumin 3.2 g/dL (3.5-5.0); Calcium 8.5 mg/dL (8.4-10.2); Potassium 3.6 mmol/L (3.5-5.1); Uric Acid 6.5 mg/dL (3.5-8.5)
[2022-03-06] MEDS: IOPAMIDOL CONTRAST (ORAL USE) VIAL PO PRN ×2 (08:28→09:43)
--- NOTE | 2022-03-06 10:49 | P.PN ---
Subjective Patient is seen in follow-up for acute kidney injury. Renal function fairly stable. Receiving IV fluids. Has been voiding. Required straight cat heterization this morning with only 75 mL of urine obtained. No vomiting or diarrhea. Denies chest pain or shortness of breath. Blood pressure stable. Vital signs are stable. General: No acute distress. HEENT: Head exam is unremarkable. LUNGS: Breath sounds decreased. HEART: Rate and Rhythm are regular. ABDOMEN: Soft, no distention. EXTREMITITES: No edema. Objective - Vital Signs Vital signs: Vital Signs Temp 98.1 F 03/06/22 08:00 Pulse 86 03/06/22 08:00 Resp 20 03/06/22 08:00 BP 130/69 03/06/22 08:00 Pulse Ox 96 03/06/22 08:00 FiO2 Intake & Output 03/05/22 03/06/22 03/06/22 18:59 06:59 18:59 Intake Total 700 Output Total 150 375 75 Balance 550 -375 -75 Weight 73.482 kg Intake: IV 100 Heparin Sod,Pork in 0.45% 100 NaCl 25,000 unit In 0.45 % NaCl 1 250ml.bag @ 18 UNITS/KG/HR 13.227 mls/hr IV .[id number] [facility] Rx#: [id number] Intake, IV Titration 600 Amount Sodium Chloride 0.9% 1, 600 000 ml @ 75 mls/hr IV . [id number] [facility] Rx#:[id number] Output: Urine 150 300 75 Post Void Residual 75 Other: Voiding Method Urinal Urinal Urinal # Voids 1 1 - Labs CBC & Chem 7: 03/06/22 06:48 03/06/22 06:48 Labs: Abnormal Lab Results - Last 24 Hours (Table) 03/06/22 03/06/22 Range/Units 06:48 06:48 WBC 3.5 L (3.8-10.6) k/uL RBC 2.65 L (4.30-5.90) m/uL Hgb 9.0 L (13.0-17.5) gm/dL Hct 27.5 L (39.0-53.0) % MCV 103.8 H (80.0-100.0) fL Plt Count 118 L (150-450) k/uL Lymphocytes # (Manual) 0.60 L (1.0-4.8) k/uL Metamyelocytes # (Man) 0.07 H (0) k/uL Myelocytes # (Manual) 0.04 H (0) k/uL Chloride 109 H (98-107) mmol/L Carbon Dioxide 21 L (22-30) mmol/L BUN 34 H (9-20) mg/dL Creatinine 1.83 H (0.66-1.25) mg/dL Glucose 107 H (74-99) mg/dL Lactate Dehydrogenase 855 H (313-618) U/L Total Protein 6.0 L (6.3-8.2) g/dL Albumin 3.2 L (3.5-5.0) g/dL Assessment and Plan Plan: Assessment: 1. Acute kidney injury secondary to ATN secondary to hypotension and use of losartan. Patient's creatinine in 2020 was in the range of 1-1.1. Creatinine was 1.86 on admission and is stable at 1.83 today. No hydronephrosis noted on kidney ultrasound. 2. Echocardiogram suggestive of constrictive pericarditis. Cardiology following. 3. Mantle cell lymphoma. Oncology following. Uric acid, potassium and calcium normal. 4. Chronic kidney disease stage III A. fib baseline creatinine in the range of 1-1.1 in 2020 and was 1.3 as of 01/29/22. Plan: Follow-up CAT scan. Follow-up urinalysis. Decreased rate of normal saline to 50 mL an hour. Continue to hold losartan for now. Avoid nephrotoxins. Continue to monitor renal function and urine output.
--- NOTE | 2022-03-06 10:55 | CT ---
EXAMINATION TYPE: CT abdomen pelvis wo con CT DLP: 597.6 mGycm, Automated exposure control for dose reduction was used. DATE OF EXAM: 03/06/2022 10:18 AM COMPARISON: None CLINICAL INDICATION:Male, 81 years old with history of restage; Restaging TECHNIQUE: Standard CT of the abdomen and pelvis following the administration of oral contrast. Cor onal and sagittal reformats were performed. FINDINGS: LOWER CHEST: Trace left small right pleural effusion. Groundglass opacities partially visualized in t he right middle lobe. Right middle lobe lobe nodule measuring 5 mm new from 2019. Cardiac conduction leads partially visualized coronary artery atherosclerosis is present. Epicardial fat lymph nodes are present measuring up to 13 mm on the left and 16 mm on the right short axis. ABDOMEN Evaluation is limited without IV contrast. LIVER: Unremarkable GALLBLADDER AND BILE DUCTS: Unremarkable. PANCREAS: Unremarkable. SPLEEN: Not enlarged. ADRENAL GLANDS: Unremarkable. KIDNEYS AND URETERS: No evidence of hydronephrosis or renal calculus. The ureters are unremarkable. Right renal cyst measuring 2.6 cm. PELVIS BLADDER: Unremarkable REPRODUCTIVE: Unremarkable. ABDOMEN & PELVIS STOMACH AND BOWEL: No evidence of bowel obstruction. There is a segment of thickened small bowel loop s in the right low pelvis measuring up to 2.2 cm. PERITONEUM: No evidence of pneumoperitoneum. There is trace free fluid with in the pelvis. VASCULATURE: No evidence of aortic aneurysm. Atherosclerosis of the arterial vasculature. Right first volume are not going to [place] E1 outside satellite and findings are clear MUSCULOSKELETAL: No acute osseous abnormalities. Multilevel disc degeneration changes are seen throug hout the spine. LYMPH NODES: There is significant mesenteric lymphadenopathy with a large conglomerate mass measuring 17.6 x 7.4 x 17.3 cm. Additional conglomerate lymphadenopathy along the aorta, inferior vena cava, i n the pelvis, leodan hepatis, gastrohepatic ligament and other scattered mesenteric lymph nodes. Promi nent perirectal lymph nodes are also present. SOFT TISSUE/ABDOMINAL WALL: Unremarkable IMPRESSION: 1. Scattered lymphadenopathy throughout the abdomen and within the epicardial fat of the mediastinum . Additionally there is a small bowel segment in the right low pelvis with marked circumferential wal l thickening. All these findings are concerning for worsening lymphoma with small bowel involvement. 2. Right middle lobe pulmonary nodule measuring 5 mm new from prior in 2019. 3. Partially visualized glass opacities in the right middle lobe peripherally correlate for atypical infection. 4. Colonic diverticulosis.
--- NOTE | 2022-03-06 11:30 | P.PN ---
Subjective This is a pleasant 9 years old male with past medical history of hypothyroidism, coronary artery disease status post stent and pacemaker, vertigo, lymphoma since 2012, left bundle-branch block. Seizure Was sent from her medicine doctor rule out pulmonary embolism. 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 His oncologist is Dr. Grady, and he was getting chemotherapy last summer, end of August and switched immunotherapy after that which did not help him much so started on a new chemotherapy but feels has lowered into once a day after he developed some low platelet count as he states. For the last week he was getting progressive shortness of breath with wounding and left-sided pleuritic-like chest pain that increases with deep breathing and movement and felt like sharp, He denies any vomiting or diarrhea, he has some difficulty to initiate urination but no dysuria Vitals are stable. wbc of 3.3, hemoglobin 10.0 and platelet count 114 D-dimer is elevated at 5.6. INR is normal is 0.9. Creatinine is elevated at 1.8. Last month was 1.4 and before that was ranging 1.0-1.3. Emergency room patient was started on heparin drip and normal saline 03/05/2022 Patient awake and alert, sitting check comfortable and pleasant with no distress. His blood pressure improved and systolic is 128. However he has low urine output and his creatinine went up to 1.9. He remains on normal saline at 75 mL/h with nephrology team on the case. They recommended to keep holding his angiotensin receptor ruslan. His VQ scan showed low probability for PE, oncology/hematology team recommended to stop heparin drip. Patient understood started on subcu heparin. Also echocardiogram showing evidence of constrictive pericarditis however patient's with no symptoms. Ejection fraction is 60-65% 03/06/2022 Patient was admitted with dyspnea and elevated d-dimer however workup was negative with no PE or DVT per CTA and venous Doppler respectively. Echocardiogram showed constrictive pericarditis which is most likely the cause of his exertional dyspnea besides other causes which could be related to his cancer and deconditioning. Because of this regard to ask for apparel pattern maker evaluation. His ejection fraction is 60-65% He had CT of the abdomen and pelvis showing a right lung nodule which is a new ulcer there is a scattered abdominal lymphadenopathy and intestinal wall thickening in the right lower pelvis. Oncology teams on the case. Creatinine stable at 1.8 and IV fluid lowered to 50 mL per hour Objective - Vital Signs Vital signs: Vital Signs Temp 98.1 F 03/06/22 08:00 Pulse 86 03/06/22 08:00 Resp 20 03/06/22 08:00 BP 130/69 03/06/22 08:00 Pulse Ox 96 03/06/22 08:00 FiO2 Intake & Output 03/05/22 03/06/22 03/06/22 18:59 06:59 18:59 Intake Total 700 Output Total 150 375 75 Balance 550 -375 -75 Weight 73.482 kg Intake: IV 100 Heparin Sod,Pork in 0.45% 100 NaCl 25,000 unit In 0.45 % NaCl 1 250ml.bag @ 18 UNITS/KG/HR 13.227 mls/hr IV .[id number] [facility] Rx#: [id number] Intake, IV Titration 600 Amount Sodium Chloride 0.9% 1, 600 000 ml @ 75 mls/hr IV . [id number] [facility] Rx#:[id number] Output: Urine 150 300 75 Post Void Residual 75 Other: Voiding Method Urinal Urinal Urinal # Voids 1 1 - Exam GENERAL: The patient is alert and oriented x3, not in any acute distress. Well developed, well nourished. HEENT: Pupils are round and equally reacting to light. EOMI. No scleral icterus. No conjunctival pallor. Normocephalic, atraumatic. No pharyngeal erythema. No thyromegaly. CARDIOVASCULAR: S1 and S2 present. No murmurs, rubs, or gallops. PULMONARY: Chest is clear to auscultation, no wheezing or crackles. ABDOMEN: Soft, nontender, nondistended, normoactive bowel sounds. No palpable organomegaly. MUSCULOSKELETAL: No joint swelling or deformity. EXTREMITIES: No cyanosis, clubbing, or pedal edema. NEUROLOGICAL: Gross neurological examination did not reveal any focal deficits. SKIN: No rashes. no petechiae. - Labs CBC & Chem 7: 03/06/22 06:48 03/06/22 06:48 Labs: Abnormal Lab Results - Last 24 Hours (Table) 03/06/22 03/06/22 Range/Units 06:48 06:48 WBC 3.5 L (3.8-10.6) k/uL RBC 2.65 L (4.30-5.90) m/uL Hgb 9.0 L (13.0-17.5) gm/dL Hct 27.5 L (39.0-53.0) % MCV 103.8 H (80.0-100.0) fL Plt Count 118 L (150-450) k/uL Lymphocytes # (Manual) 0.60 L (1.0-4.8) k/uL Metamyelocytes # (Man) 0.07 H (0) k/uL Myelocytes # (Manual) 0.04 H (0) k/uL Chloride 109 H (98-107) mmol/L Carbon Dioxide 21 L (22-30) mmol/L BUN 34 H (9-20) mg/dL Creatinine 1.83 H (0.66-1.25) mg/dL Glucose 107 H (74-99) mg/dL Lactate Dehydrogenase 855 H (313-618) U/L Total Protein 6.0 L (6.3-8.2) g/dL Albumin 3.2 L (3.5-5.0) g/dL Assessment and Plan Assessment: Constrictive pericarditis Exertional dyspnea and aortic chest pain with elevated d-dimer . VQ scan showed low probability for PE, Doppler is negative for DVT. Most likely secondary to constrictive pericarditis Acute kidney injury, versus progressive chronic kidney disease. Unknown baseline. Most likely secondary to hypovolemia Hypovolemia and dehydration, present on admission Constrictive pericarditis Patient is a with Mantle cell lymphoma intestinal, lymph nodes and spleen and he is receiving chemotherapy in form of acalbrutinib which is put on hold now Mild pancytopenia , mostly secondary to chemo therapy History of coronary artery disease status post stent and pacemaker Hypothyroidism History of seizure Plan: This is a pleasant 81 years old male who presents with elevated d-dimer and exertional dyspnea switch heparin drip to subcu heparin Hematology/oncology team consult Monitor creatinine and CBC. Hold Losartan, and lower the dose of metoprolol 25 mg down to 12.5. Nephrology consult Continue with normal saline at 50 mL per hour Cardiology consult for constrictive pericarditis Labs and medication were reviewed.. Continue same treatment. Continue with symptomatic treatment. Resume home medication. Monitor lytes and vitals. DVT and GI prophylaxis. Further recommendations depends on the clinical course of the patient DVT prophylaxis: heparin GI Prophylaxis: Pepcid PT/OT: Pending Prognosis is guarded
[2022-03-06] MEDS: ATORVASTATIN 80 MG TAB PO SCH (11:57)
[2022-03-06] MEDS: levETIRAcetam 500 MG TAB PO SCH ×2 (11:57→19:58)
[2022-03-06] MEDS: CLOPIDOGREL 75 MG TAB PO SCH (11:58)
[2022-03-06] MEDS: allopurinoL 100 MG TAB PO SCH (11:58)
[2022-03-06] MEDS: ASCORBIC ACID 500 MG TAB PO SCH (11:58)
[2022-03-06] MEDS: METOPROLOL TARTRATE 12.5 MG TAB PO SCH ×2 (11:58→19:58)
[2022-03-06] MEDS: HYDROcodone/APAP 10-325MG 1 EACH TAB PO PRN ×2 (11:58→19:58)
[2022-03-06] MEDS: CYANOCOBALAMIN 500 MCG TAB PO SCH (11:58)
[2022-03-06] MEDS: levETIRAcetam 250 MG TAB PO SCH ×2 (12:00→19:58)
[2022-03-06] MEDS: SODIUM CHLORIDE 0.9% 1,000 ML IV SCH (14:00)
[2022-03-06 14:15] LABS: Appearance,Urine Cloudy (Clear); Bacteria,Urine Rare /hpf; Bilirubin,Urine 1+ (Negative); Blood,Urine Large (Negative); Budding Yeast,Urine Occasional /hpf; Color,Urine Yellow; Glucose,Urine (UA) Negative (Negative); Granular Casts,Urine 5 /lpf (0); Hyaline Casts,Urine 22 /lpf (0-2); Ketones,Urine 1+ (Negative); Leukocyte Esterase,Urine Trace (Negative); Mucus,Urine Rare /hpf; Nitrite,Urine Negative (Negative); PH, Urine 5.5 (5.0-8.0); Protein,Urine 2+ (Negative); RBC,Urine >182 /hpf (0-5); Specific Gravity,Urine 1.025 (1.001-1.035); Squamous Epithelial Cell,Urine 2 /hpf (0-4); WBC,Urine 20 /hpf (0-5)
--- NOTE | 2022-03-06 15:53 | P.PN ---
Subjective Progress Note Date: 03/06/22 Patient continues to complain of shortness of breath and intermittent chest discomfort. He denies any fever, chills, nausea vomiting or cough. Generalized weakness and fatigue persists. Objective - Vital Signs Vital signs: Vital Signs Temp 98.0 F 03/06/22 15:41 Pulse 86 03/06/22 15:41 Resp 15 03/06/22 15:41 BP 113/60 03/06/22 15:41 Pulse Ox 95 03/06/22 15:41 FiO2 Intake & Output 03/05/22 03/06/22 03/06/22 18:59 06:59 18:59 Intake Total 700 240 Output Total 150 375 375 Balance 550 -375 -135 Weight 73.482 kg Intake: IV 100 Heparin Sod,Pork in 0.45% 100 NaCl 25,000 unit In 0.45 % NaCl 1 250ml.bag @ 18 UNITS/KG/HR 13.227 mls/hr IV .[id number] [facility] Rx#: [id number] Intake, IV Titration 600 Amount Sodium Chloride 0.9% 1, 600 000 ml @ 50 mls/hr IV . Q20H [facility] Rx#:[id number] Oral 240 Output: Urine 150 300 375 Post Void Residual 75 Other: Voiding Method Urinal Urinal Urinal # Voids 1 1 - Constitutional General appearance: Present: no acute distress - EENT Eyes: Present: EOMI ENT: Present: hearing grossly normal, normal oropharynx - Respiratory Respiratory: bilateral: diminished - Cardiovascular Rhythm: regular Heart sounds: normal: S1, S2 - Gastrointestinal General gastrointestinal: Present: normal bowel sounds, soft - Integumentary Integumentary: Present: normal - Neurologic Neurologic: Present: CNII-XII intact - Musculoskeletal Musculoskeletal: Present: generalized weakness, strength equal bilaterally - Additional findings Additional findings: Left medial supraclavicular lymph node about 1.5 cm, shotty adenopathy bilateral axillary - Labs CBC & Chem 7: 03/06/22 06:48 03/06/22 06:48 Labs: Abnormal Lab Results - Last 24 Hours (Table) 03/06/22 03/06/22 03/06/22 Range/Units 06:48 06:48 14:07 WBC 3.5 L (3.8-10.6) k/uL RBC 2.65 L (4.30-5.90) m/uL Hgb 9.0 L (13.0-17.5) gm/dL Hct 27.5 L (39.0-53.0) % MCV 103.8 H (80.0-100.0) fL Plt Count 118 L (150-450) k/uL Lymphocytes # (Manual) 0.60 L (1.0-4.8) k/uL Metamyelocytes # (Man) 0.07 H (0) k/uL Myelocytes # (Manual) 0.04 H (0) k/uL Chloride 109 H (98-107) mmol/L Carbon Dioxide 21 L (22-30) mmol/L BUN 34 H (9-20) mg/dL Creatinine 1.83 H (0.66-1.25) mg/dL Glucose 107 H (74-99) mg/dL Lactate Dehydrogenase 855 H (313-618) U/L Total Protein 6.0 L (6.3-8.2) g/dL Albumin 3.2 L (3.5-5.0) g/dL Urine Protein 2+ H (Negative) Urine Ketones 1+ H (Negative) Urine Blood Large H (Negative) Urine Bilirubin 1+ H (Negative) Ur Leukocyte Esterase Trace H (Negative) Urine RBC >182 H (0-5) /hpf Urine WBC 20 H (0-5) /hpf Urine Bacteria Rare H (None) /hpf Hyaline Casts 22 H (0-2) /lpf Urine Mucus Rare H (None) /hpf Urine Yeast (Budding) Occasional H (None) /hpf Assessment and Plan (1) Dyspnea Narrative/Plan: Patient's workup for thrombus embolism was negative. CT of the abdomen and pelvis showed some left-sided pleural effusion that doesn't appear to be very major. CT of the chest was ordered to check for infectious/inflammatory process, versus lymphoma progression. Current Visit: Yes Status: Acute Code(s): R06.00 - DYSPNEA, UNSPECIFIED SNOMED Code(s): 503681482 (2) Mantle cell lymphoma Narrative/Plan: The patient has recently started treatment with Calquence. His presentation is not typical of side effects of his medications. PE or cardiac ischemia have been ruled out. At this time, from my standpoint, differentials include infection/inflammation in the lung, versus lymphoma progression versus symptoms due to tumor necrosis from his new regimen. - CT of the abdomen and pelvis is not substantially different from his prior CAT scan as best as I can recall. It did raise the possibility of some groundglass opacities in the lung. Therefore CT of the chest has been ordered to check for infection/inflammation, versus lymphoma progression. - Patient was advised that I would hold his regimen till the cause of his symptoms is clarified. If infection can be ruled out, then he can be resumed on his medication. Current Visit: No Status: Acute Code(s): C83.10 - MANTLE CELL LYMPHOMA, UNSPECIFIED SITE SNOMED Code(s): 646094629
--- NOTE | 2022-03-06 17:12 | CT ---
EXAMINATION TYPE: CT chest wo con DATE OF EXAM: 03/06/2022 COMPARISON: 08/04/2019 HISTORY: SOB, chest pain, lymphoma, poss pneumonia CT DLP: 388.7 mGycm Automated exposure control for dose reduction was used. Images obtained from the thoracic inlet to the diaphragm with no contrast. There are bilateral pleural effusions and larger on the right side. There is some atelectasis at both lung bases. There are markedly enlarged mediastinal and lymph nodes that measure up to 4.5 cm. There are also enlarged axillary lymph nodes that measure up to 2.7 cm. Thoracic aorta is atheromatous. No aneurysm. Heart size is normal. The thoracic spine is intact. No compression fracture. Sternum is in tact. Images through the upper abdomen show evidence of extensive abdominal pelvic adenopathy. There is also evidence of celiac and mesenteric lymphadenopathy. IMPRESSION: Pleural effusions and extensive thoracic adenopathy which is new compared to old exam. This is consis tent with lymphoma. Atelectasis at the lung bases.
[2022-03-06] MEDS: FAMOTIDINE 20 MG TAB PO SCH (19:58)
[2022-03-07] MEDS: HEPARIN SODIUM,PORCINE/PF 5,000 UNIT/0.5 ML SYRINGE SQ SCH ×3 (00:50→17:13)
[2022-03-07] MEDS: LEVOTHYROXINE 75 MCG TAB PO SCH (06:31)
[2022-03-07] MEDS: ATORVASTATIN 80 MG TAB PO SCH (08:46)
[2022-03-07] MEDS: CLOPIDOGREL 75 MG TAB PO SCH (08:46)
[2022-03-07] MEDS: allopurinoL 100 MG TAB PO SCH (08:46)
[2022-03-07] MEDS: levETIRAcetam 500 MG TAB PO SCH ×2 (08:46→21:28)
[2022-03-07] MEDS: CYANOCOBALAMIN 500 MCG TAB PO SCH (08:46)
[2022-03-07] MEDS: ASCORBIC ACID 500 MG TAB PO SCH (08:47)
[2022-03-07] MEDS: METOPROLOL TARTRATE 12.5 MG TAB PO SCH ×2 (08:49→21:28)
[2022-03-07] MEDS: levETIRAcetam 250 MG TAB PO SCH ×2 (08:50→21:29)
[2022-03-07] MEDS ORDERED: FUROSEMIDE 10 MG/ML 4 ML VIAL IV STA (09:25)
--- NOTE | 2022-03-07 09:33 | P.PN ---
Subjective Patient is seen in follow-up for acute kidney injury. Renal function fairly stable as of yesterday. Receiving IV fluids. Has been voiding. Required straight catheterization this morning again due to high bladder scan volume but no significant urine obtained from catheterization. No vomiting or diarrhea. Oral intake poor. Denies chest pain or shortness of breath. Blood pressure stable. Vital signs are stable. General: No acute distress. HEENT: Head exam is unremarkable. LUNGS: Breath sounds decreased. HEART: Rate and Rhythm are regular. ABDOMEN: Soft, no distention. EXTREMITITES: 1+ edema. Objective - Vital Signs Vital signs: Vital Signs Temp 98.1 F 03/07/22 08:00 Pulse 91 03/07/22 08:00 Resp 20 03/07/22 08:00 BP 134/61 03/07/22 08:00 Pulse Ox 94 L 03/07/22 08:00 FiO2 Intake & Output 03/06/22 03/07/22 03/07/22 18:59 06:59 18:59 Intake Total 877 400 330 Output Total 375 300 Balance 502 100 330 Intake: Intake, IV Titration 400 400 Amount Sodium Chloride 0.9% 1, 400 400 000 ml @ 50 mls/hr IV . Q20H [facility] Rx#:[id number] Oral 477 330 Output: Urine 375 200 Post Void Residual 100 Other: Voiding Method Urinal Urinal # Voids 1 1 # Bowel Movements 1 - Labs CBC & Chem 7: 03/06/22 06:48 03/06/22 06:48 Labs: Abnormal Lab Results - Last 24 Hours (Table) 03/06/22 Range/Units 14:07 Urine Protein 2+ H (Negative) Urine Ketones 1+ H (Negative) Urine Blood Large H (Negative) Urine Bilirubin 1+ H (Negative) Ur Leukocyte Esterase Trace H (Negative) Urine RBC >182 H (0-5) /hpf Urine WBC 20 H (0-5) /hpf Urine Bacteria Rare H (None) /hpf Hyaline Casts 22 H (0-2) /lpf Urine Mucus Rare H (None) /hpf Urine Yeast (Budding) Occasional H (None) /hpf Assessment and Plan Plan: Assessment: 1. Acute kidney injury secondary to ATN secondary to hypotension and use of losartan. ?lymphoma induced GN vs renal infiltration of lymphoma (although kidneys not large in size). Patient's creatinine in 2020 was in the range of 1- 1.1. Creatinine was 1.86 on admission and stable at 1.83 yesterday. No hydronephrosis noted on kidney ultrasound. 2. Echocardiogram suggestive of constrictive pericarditis. Cardiology following. 3. Mantle cell lymphoma. Oncology following. Uric acid, potassium and calcium normal. Extensive thoracic adenopathy noted on CAT scan. 4. Chronic kidney disease stage III A. fib baseline creatinine in the range of 1-1.1 in 2020 and was 1.3 as of 01/29/22. 5. Lower extremity edema with pleural effusions noted on CT chest. Plan: Hep-Lock IV fluids. Lasix 40 mg IV once today. Continue to hold losartan for now. Avoid nephrotoxins. Continue to monitor renal function and urine output. Check LDH and haptoglobin.
[2022-03-07 09:46] LABS: Calcium 8.8 mg/dL (8.4-10.2)
--- NOTE | 2022-03-07 11:58 | P.CRDCN ---
History of Present Illness Consult date: 03/07/22 Reason for Consult (text): Constrictive pericarditis History of present illness: History of present illness: This is an 81-year-old male follows with Dr. Tapia last seen 4-5 months ago. He has a past medical history of myocardial infarction coronary artery disease with previous stent in 2010 and in 2011, pacemaker implantation in [address] Lozano, hypertension, hyperlipidemia, hypothyroidism, seizure disorder, mantle cell lymphoma. Patient complains of shortness of breath for the past 4-5 weeks and gradually worsening. He denies any lower extremity edema. He does complain of chest pain that is severe on the left side of his chest whenever he lays flat in bed and is improved when he sits up. Patient initially presented to the hospital on March 03 and has been treated for acute kidney injury, exertional dyspnea V/Q scan showed low probability for PE and lower extremity Doppler negative for DVT, pancytopenia. There was concern on echocardiogram for constrictive pericarditis and thus this consult was requested. CT of the chest revealed pleural effusions and extensive thoracic adenopathy which is new compared to old exam from 2019. This is consistent with lymphoma. Atelectasis at the lung bases. No calcium deposits mentioned. Echocardiogram reveals borderline left ventricular hypertrophy, EF 60-65%, RVSP 39, septal bounce concerning for constrictive pericarditis. Mild tricuspid regurgitation. EKG is left bundle branch block WBC 3.5, hemoglobin 9, platelet count 118. BUN 36 creatinine 1.9. LDH 928. Review Of Systems: Constitutional: No fever, no chills. Reports weakness, reports fatigue. EENT: No headache. No dizziness. Lungs: No shortness of breath, cough, no sputum production. No wheezing. Reports shortness of breath with exertion. Cardiovascular: Reports chest pain left side, no lower extremity edema. No palpitations. No paroxysmal nocturnal dyspnea. No orthopnea. No lightheadedness or dizziness. No syncopal episodes. Abdominal: No abdominal pain. No nausea, vomiting. No diarrhea. No constipation. No bloody or tarry stools. Reports loss of appetite. Genitourinary: No dysuria.. No urinary retention. Musculoskeletal: No myalgias. No muscle weakness, no gait dysfunction, no fr equent falls. No back pain. No neck pain. Integumentary: No wounds, no lesions. No rash or pruritus. No unusual bruising. Neurologic: No aphasia. No facial droop. No change in mentation. No head injury. No headache. No paralysis. No paresthesia. Psychiatric: No depression. No anxiety. Endocrine: No abnormal blood sugars. Physical examination: Gen: This is a thin 81-year-old male. He is resting in bed and appears to be comfortable at rest, no respiratory distress. VS: Afebrile, heart rate in the 80s and 90s, blood pressure 134/61, pulse ox 94% on room air. HEENT: Head is atraumatic, normocephalic. Pupils equal, round. Sclerae is anicteric. NECK: Supple. Trachea midline. LUNGS: Clear to auscultation. No wheezes or rhonchi. No intercostal retractions. HEART: Regular rate and rhythm. No murmur. No chest wall tenderness ABDOMEN: Soft. Bowel sounds are present. No masses. No tenderness. EXTREMITIES: No pedal edema. No calf tenderness. NEUROLOGICAL: Patient is awake, alert and oriented x3. Cranial nerves 2 through 12 are grossly intact. 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 Tapia after discharge Thank you kindly for this consultation. Nurse practitioner note has been reviewed, I agree with documented findings and plan of care. Patient was seen and examined. Past Medical History Past Medical History: Thyroid Disorder Additional Past Medical History / Comment(s): LBBB, hx gout, occ problem with balance, swollen hand from wasp sting, vertigo, lymphoma Last Myocardial Infarction Date:: 2012 History of Any Multi-Drug Resistant Organisms: None Reported Past Surgical History: Heart Catheterization With Stent, Orthopedic Surgery, Pacemaker Additional Past Surgical History / Comment(s): total 4 stents, removal of salivary gland and lymph node, cataracts, left knee arthroscopy Past Anesthesia/Blood Transfusion Reactions: Motion Sickness Date of Last Stent Placement:: 2012 Type of Cardiac Device: Permanent Pacemaker Device Placement Date:: 2012 Past Psychological History: No Psychological Hx Reported Smoking Status: Former smoker Past Alcohol Use History: None Reported Past Drug Use History: None Reported - Past Family History Mother Family Medical History: Cancer Sister(s) Family Medical History: Cancer Medications and Allergies Home Medications Medication Instructions Recorded Confirmed Type Atorvastatin [Lipitor] 80 mg PO -BRKFST 05/30/15 03/03/22 History Clopidogrel Bisulfate [Plavix] 75 mg PO -BRKFST 05/30/15 03/03/22 History Midodrine HCl [ProAmatine] 2.5 mg PO DAILY 05/30/15 03/03/22 History Cholecalciferol [Vitamin D3 (25 50 mcg PO DAILY 05/07/21 03/03/22 History Mcg = 1000 Iu)] Cyanocobalamin (Vitamin B-12) 1,000 mcg PO DAILY 05/07/21 03/03/22 History [Vitamin B-12] Levothyroxine Sodium [Synthroid] 75 mcg PO DAILY@0630 05/07/21 03/03/22 History levETIRAcetam [Keppra] 1,000 mg PO BID 05/07/21 03/03/22 History Metoprolol Succinate [Toprol XL] 25 mg PO DAILY 12/04/21 03/03/22 History Acalabrutinib [Calquence] 100 mg PO DAILY 03/03/22 03/03/22 History Allopurinol [Zyloprim] 100 mg PO W/BRKFST@30 03/03/22 03/05/22 History Ascorbic Acid [Vitamin C] 500 mg PO DAILY 03/03/22 03/03/22 History Calcium Carbonate [Tums] 500 mg PO BID PRN 03/03/22 03/03/22 History Famotidine 40 mg PO HS 03/03/22 03/03/22 History HYDROcodone/APAP 10-325MG [Jay 1 tab PO Q6HR PRN 03/03/22 03/03/22 History 10-325] Losartan Potassium [Cozaar] 12.5 mg PO -BRKFST 03/03/22 03/03/22 History Sennosides/Docusate Sodium [Senna 1 cap PO HS 03/03/22 03/03/22 History Plus 8.6-50 mg Softgel] levETIRAcetam [Keppra] 250 mg PO BID 03/03/22 03/03/22 History Allergies Allergy/AdvReac Type Severity Reaction Status Date / Time No Known Allergies Allergy Verified 03/03/22 15:41 Physical Exam Vitals: Vital Signs Temp Pulse Resp BP BP Pulse Ox 03/07/22 08:00 98.1 F 91 20 134/61 94 L 03/07/22 03:37 98.0 F 80 18 127/85 96 03/07/22 02:00 82 18 03/06/22 23:17 97.8 F 84 18 112/62 95 03/06/22 20:00 98.1 F 92 17 149/67 98 03/06/22 15:41 98.0 F 86 15 113/60 95 03/06/22 11:43 98.0 F 94 15 132/87 95 Intake and Output 03/06/22 03/07/22 03/07/22 22:59 06:59 14:59 Intake Total 637 400 330 Output Total 300 300 Balance 337 100 330 Intake: Intake, IV Titration 400 400 Amount Sodium Chloride 0.9% 1, 400 400 000 ml @ 50 mls/hr IV . Q20H [facility] Rx#:[id number] Oral 237 330 Output: Urine 300 200 Post Void Residual 100 Other: Voiding Method Urinal Urinal Urinal # Voids 1 # Bowel Movements 1 Results 03/06/22 06:48 03/07/22 08:21 Cardiac Enzymes 03/07/22 Range/Units 08:21 Lactate Dehydrogenase 928 H (313-618) U/L Comprehensive Metabolic Panel 03/07/22 Range/Units 08:21 Sodium 139 (137-145) mmol/L Potassium 4.0 (3.5-5.1) mmol/L Chloride 109 H (98-107) mmol/L Carbon Dioxide 20 L (22-30) mmol/L BUN 36 H (9-20) mg/dL Creatinine 1.90 H (0.66-1.25) mg/dL Glucose 101 H (74-99) mg/dL Calcium 8.8 (8.4-10.2) mg/dL Current Medications Generic Name Dose Route Start Last Admin Trade Name Freq PRN Reason Stop Dose Admin Hydrocodone Bitart/Acetaminophen 1 each 03/04/22 07:15 03/06/22 19:58 Hydrocodone/Apap 10-325mg 1 Each Tab PO 1 each Q6HR PRN Administration Pain Allopurinol 100 mg 03/05/22 08:30 03/07/22 08:46 Allopurinol 100 Mg Tab PO 100 mg W/BRKFST@0830 ALEJANDRO Administration Ascorbic Acid 500 mg 03/04/22 09:00 03/07/22 08:47 Ascorbic Acid 500 Mg Tab PO 500 mg DAILY ALEJANDRO Administration Atorvastatin Calcium 80 mg 03/04/22 08:30 03/07/22 08:46 Atorvastatin 80 Mg Tab PO 80 mg -BRKFST ALEJANDRO Administration Calcium Carbonate/Glycine 500 mg 03/04/22 07:15 Calcium Carbonate 500 Mg Chewable PO BID PRN ACID REFLUX Clopidogrel Bisulfate 75 mg 03/04/22 08:30 03/07/22 08:46 Clopidogrel 75 Mg Tab PO 75 mg -BRKFST ALEJANDRO Administration Cyanocobalamin 1,000 mcg 03/04/22 09:00 03/07/22 08:46 Cyanocobalamin 500 Mcg Tab PO 1,000 mcg DAILY ALEJANDRO Administration Famotidine 20 mg 03/04/22 21:00 03/06/22 19:58 Famotidine 20 Mg Tab PO 20 mg HS ALEJANDRO Administration Heparin Sodium (Porcine) 5,000 unit 03/06/22 00:00 03/07/22 08:47 Heparin Sodium,Porcine/Pf 5,000 Unit/0.5 Ml Syringe SQ 5,000 unit Q8HR ALEJANDRO Administration Levetiracetam 1,000 mg 03/04/22 09:00 03/07/22 08:46 Levetiracetam 500 Mg Tab PO 1,000 mg BID ALEJANDRO Administration Levetiracetam 250 mg 03/04/22 09:00 03/07/22 08:50 Levetiracetam 250 Mg Tab PO 250 mg BID ALEJANDRO Administration Levothyroxine Sodium 75 mcg 03/04/22 09:00 03/07/22 06:31 Levothyroxine 75 Mcg Tab PO 75 mcg DAILY@0630 ALEJANDRO Administration Metoprolol Tartrate 12.5 mg 03/04/22 09:00 03/07/22 08:49 Metoprolol Tartrate 12.5 Mg Tab PO 12.5 mg BID ALEJANDRO Administration Intake and Output 03/06/22 03/07/22 03/07/22 22:59 06:59 14:59 Intake Total 637 400 330 Output Total 300 300 Balance 337 100 330 Intake: Intake, IV Titration 400 400 Amount Sodium Chloride 0.9% 1, 400 400 000 ml @ 50 mls/hr IV . Q20H [facility] Rx#:[id number] Oral 237 330 Output: Urine 300 200 Post Void Residual 100 Other: Voiding Method Urinal Urinal Urinal # Voids 1 # Bowel Movements 1 03/06/22 06:48 03/07/22 08:21
[2022-03-07] MEDS: HYDROcodone/APAP 10-325MG 1 EACH TAB PO PRN ×2 (12:46→21:29)
--- NOTE | 2022-03-07 17:29 | P.PN ---
Subjective This is a pleasant 9 years old male with past medical history of hypothyroidism, coronary artery disease status post stent and pacemaker, vertigo, lymphoma since 2012, left bundle-branch block. Seizure Was sent from her medicine doctor rule out pulmonary embolism. 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 His oncologist is Dr. Grady, and he was getting chemotherapy last summer, end of August and switched immunotherapy after that which did not help him much so started on a new chemotherapy but feels has lowered into once a day after he developed some low platelet count as he states. For the last week he was getting progressive shortness of breath with wounding and left-sided pleuritic-like chest pain that increases with deep breathing and movement and felt like sharp, He denies any vomiting or diarrhea, he has some difficulty to initiate urination but no dysuria Vitals are stable. wbc of 3.3, hemoglobin 10.0 and platelet count 114 D-dimer is elevated at 5.6. INR is normal is 0.9. Creatinine is elevated at 1.8. Last month was 1.4 and before that was ranging 1.0-1.3. Emergency room patient was started on heparin drip and normal saline 03/05/2022 Patient awake and alert, sitting check comfortable and pleasant with no distress. His blood pressure improved and systolic is 128. However he has low urine output and his creatinine went up to 1.9. He remains on normal saline at 75 mL/h with nephrology team on the case. They recommended to keep holding his angiotensin receptor ruslan. His VQ scan showed low probability for PE, oncology/hematology team recommended to stop heparin drip. Patient understood started on subcu heparin. Also echocardiogram showing evidence of constrictive pericarditis however patient's with no symptoms. Ejection fraction is 60-65% 03/06/2022 Patient was admitted with dyspnea and elevated d-dimer however workup was negative with no PE or DVT per CTA and venous Doppler respectively. Echocardiogram showed constrictive pericarditis which is most likely the cause of his exertional dyspnea besides other causes which could be related to his cancer and deconditioning. Because of this regard to ask for alum operator evaluation. His ejection fraction is 60-65% He had CT of the abdomen and pelvis showing a right lung nodule which is a new ulcer there is a scattered abdominal lymphadenopathy and intestinal wall thickening in the right lower pelvis. Oncology teams on the case. Creatinine stable at 1.8 and IV fluid lowered to 50 mL per hour 03/07/2022 Patient with exertional dyspnea, investigations showed low probability for PE. There was suspicion of constrictive pericarditis however alum operator evaluated the patient and thinks mostly its restrictive pericarditis with fluid overload and recommended treatment with diuretics. Patient received 1 dose of Lasix today. Also had CT of the chest without contrast showing bilateral pleural effusion more on the right with atelectasis and enlarged mediastinal, axillary and abdominal lymphadenopathy. We will order a chest ultrasound, there is significant pleural effusion then pulmonary consult may be considered Abdomen that he is hemodynamically stable. His creatinine is 1.9 today IV fluids was discontinued as well Objective - Vital Signs Vital signs: Vital Signs Temp 98.1 F 03/07/22 08:00 Pulse 91 03/07/22 08:00 Resp 20 03/07/22 08:00 BP 134/61 03/07/22 08:00 Pulse Ox 94 L 03/07/22 08:00 FiO2 Intake & Output 03/06/22 03/07/22 03/07/22 18:59 06:59 18:59 Intake Total 877 400 330 Output Total 375 300 Balance 502 100 330 Intake: Intake, IV Titration 400 400 Amount Sodium Chloride 0.9% 1, 400 400 000 ml @ 50 mls/hr IV . Q20H [facility] Rx#:[id number] Oral 477 330 Output: Urine 375 200 Post Void Residual 100 Other: Voiding Method Urinal Urinal Urinal # Voids 1 1 # Bowel Movements 1 - Exam GENERAL: The patient is alert and oriented x3, not in any acute distress. Well developed, well nourished. HEENT: Pupils are round and equally reacting to light. EOMI. No scleral icterus. No conjunctival pallor. Normocephalic, atraumatic. No pharyngeal erythema. No thyromegaly. CARDIOVASCULAR: S1 and S2 present. No murmurs, rubs, or gallops. PULMONARY: Chest is clear to auscultation, no wheezing or crackles. ABDOMEN: Soft, nontender, nondistended, normoactive bowel sounds. No palpable organomegaly. MUSCULOSKELETAL: No joint swelling or deformity. EXTREMITIES: No cyanosis, clubbing, or pedal edema. NEUROLOGICAL: Gross neurological examination did not reveal any focal deficits. SKIN: No rashes. no petechiae. - Labs CBC & Chem 7: 03/06/22 06:48 03/07/22 08:21 Labs: Abnormal Lab Results - Last 24 Hours (Table) 03/06/22 03/07/22 Range/Units 14:07 08:21 Chloride 109 H (98-107) mmol/L Carbon Dioxide 20 L (22-30) mmol/L BUN 36 H (9-20) mg/dL Creatinine 1.90 H (0.66-1.25) mg/dL Glucose 101 H (74-99) mg/dL Lactate Dehydrogenase 928 H (313-618) U/L Urine Protein 2+ H (Negative) Urine Ketones 1+ H (Negative) Urine Blood Large H (Negative) Urine Bilirubin 1+ H (Negative) Ur Leukocyte Esterase Trace H (Negative) Urine RBC >182 H (0-5) /hpf Urine WBC 20 H (0-5) /hpf Urine Bacteria Rare H (None) /hpf Hyaline Casts 22 H (0-2) /lpf Urine Mucus Rare H (None) /hpf Urine Yeast (Budding) Occasional H (None) /hpf Assessment and Plan Assessment: Restrictive rather than Constrictive pericarditis Exertional dyspnea and aortic chest pain with elevated d-dimer . VQ scan showed low probability for PE, Doppler is negative for DVT. Most likely secondary to restrictive pericarditis and pleural effusion Acute kidney injury, versus progressive chronic kidney disease. Unknown baseline. Hypovolemia and dehydration, present on admission. Improved Restrictive pericarditis Patient is a with Mantle cell lymphoma intestinal, lymph nodes and spleen and he is receiving chemotherapy in form of acalbrutinib which is put on hold now Mild pancytopenia , mostly secondary to chemo therapy History of coronary artery disease status post stent and pacemaker Hypothyroidism History of seizure Plan: This is a pleasant 81 years old male who presents with elevated d-dimer and exertional dyspnea We'll check chest ultrasound, if significant pleural effusion then consider pulmonary consult for possible thoracocentesis Hematology/oncology team consult Monitor creatinine and CBC. Hold Losartan, and lower the dose of metoprolol 25 mg down to 12.5. Nephrology consult Discontinue IV fluids Cardiology consult for restrictive pericarditis and recommended diuresis and outpatient follow-up Labs and medication were reviewed.. Continue same treatment. Continue with symptomatic treatment. Resume home medication. Monitor lytes and vitals. DVT and GI prophylaxis. Further recommendations depends on the clinical course of the patient DVT prophylaxis: heparin GI Prophylaxis: Pepcid PT/OT: Pending Prognosis is guarded
--- NOTE | 2022-03-07 18:09 | US ---
EXAMINATION TYPE: US chest DATE OF EXAM: 03/07/2022 COMPARISON: NONE CLINICAL HISTORY: pl effusion. SOB, PE's, Pl effusion on CT TECHNIQUE: Targeted ultrasound of the posterior lower Bilateral EXAM MEASUREMENTS: Right Pleural Effusion pocket size: 15.8 cm Right skin surface to fluid distance: 2.6 cm Left Pleural Effusion pocket size: 6.3 cm Left skin surface to fluid distance: 2.3 cm Right and Left chest NOT marked due to septations and tissue seen within pocket. Pulmonologists are able to review the images in the patient?s EMR. IMPRESSION: Bilateral pleural effusions are demonstrated. There is some loculation.
[2022-03-07] MEDS: FAMOTIDINE 20 MG TAB PO SCH (21:28)
[2022-03-08] MEDS: HEPARIN SODIUM,PORCINE/PF 5,000 UNIT/0.5 ML SYRINGE SQ SCH ×3 (00:08→16:21)
[2022-03-08] MEDS: LEVOTHYROXINE 75 MCG TAB PO SCH (06:01)
[2022-03-08] MEDS: ASCORBIC ACID 500 MG TAB PO SCH (08:56)
[2022-03-08] MEDS: CYANOCOBALAMIN 500 MCG TAB PO SCH (08:56)
[2022-03-08] MEDS: METOPROLOL TARTRATE 12.5 MG TAB PO SCH ×2 (08:56→21:46)
[2022-03-08] MEDS: ATORVASTATIN 80 MG TAB PO SCH (08:56)
[2022-03-08] MEDS: CLOPIDOGREL 75 MG TAB PO SCH (08:56)
[2022-03-08] MEDS: allopurinoL 100 MG TAB PO SCH (08:56)
[2022-03-08] MEDS: levETIRAcetam 250 MG TAB PO SCH ×2 (08:57→21:47)
[2022-03-08] MEDS: levETIRAcetam 500 MG TAB PO SCH ×2 (08:57→21:46)
[2022-03-08] MEDS: HYDROcodone/APAP 10-325MG 1 EACH TAB PO PRN ×2 (08:57→14:57)
--- NOTE | 2022-03-08 09:50 | P.PN ---
Subjective Patient is seen in follow-up for acute kidney injury. Renal function fairly stable. Has been voiding. No vomiting or diarrhea. Oral intake poor. Denies chest pain or shortness of breath. Blood pressure stable. States urine output improved with Lasix. Vital signs are stable. General: No acute distress. HEENT: Head exam is unremarkable. LUNGS: Breath sounds decreased. HEART: Rate and Rhythm are regular. ABDOMEN: Soft, no distention. EXTREMITITES: 1+ edema. Objective - Vital Signs Vital signs: Vital Signs Temp 97.6 F 03/08/22 09:07 Pulse 90 03/08/22 09:08 Resp 16 03/08/22 09:08 BP 130/67 03/08/22 09:07 Pulse Ox 96 03/08/22 09:07 FiO2 Intake & Output 03/07/22 03/08/22 03/08/22 18:59 06:59 18:59 Intake Total 960 Output Total 350 Balance 610 Intake: Intake, IV Titration 150 Amount Sodium Chloride 0.9% 1, 150 000 ml @ 50 mls/hr IV . Q20H [facility] Rx#:[id number] Oral 810 Output: Urine 350 Other: Voiding Method Urinal Toilet Toilet # Voids 1 2 - Labs CBC & Chem 7: 03/06/22 06:48 03/07/22 08:21 Labs: Abnormal Lab Results - Last 24 Hours (Table) 03/07/22 03/07/22 Range/Units 08:21 08:21 Haptoglobin 203.0 H (31.2-198.0) mg/dL Chloride 109 H (98-107) mmol/L Carbon Dioxide 20 L (22-30) mmol/L BUN 36 H (9-20) mg/dL Creatinine 1.90 H (0.66-1.25) mg/dL Glucose 101 H (74-99) mg/dL Lactate Dehydrogenase 928 H (313-618) U/L Assessment and Plan Plan: Assessment: 1. Acute kidney injury secondary to ATN secondary to hypotension and use of losartan. ?lymphoma induced GN vs renal infiltration of lymphoma (although kidneys not large in size). Patient's creatinine in 2020 was in the range of 1- 1.1. Creatinine was 1.86 on admission and stable at 1.9 today. No hydronephrosis noted on kidney ultrasound. 2. Echocardiogram suggestive of constrictive pericarditis. Cardiology fol lowshane. 3. Mantle cell lymphoma. Oncology following. Uric acid, potassium and calcium normal. Extensive thoracic adenopathy noted on CAT scan. 4. Chronic kidney disease stage IIIa with baseline creatinine in the range of 1-1.1 in 2020 and was 1.3 as of 01/29/22. 5. Lower extremity edema with pleural effusions noted on CT chest. 6. Pancytopenia. Hematology following. Rule out iron deficiency. LDH high. Haptoglobin also high. Plan: Add IV Lasix 40 mg twice daily. Continue to hold losartan for now. Avoid nephrotoxins. Continue to monitor renal function and urine output. Check iron studies.
[2022-03-08 10:02] LABS: HCT 28.7 % (39.0-53.0); HGB 8.9 gm/dL (13.0-17.5); Hypochromasia Slight; MCH 32.3 pg (25.0-35.0); MCV 104.1 fL (80.0-100.0); Macrocytosis Slight; Mean Platelet Volume 8.7; Platelet Count 123 k/uL (150-450); RBC 2.76 m/uL (4.30-5.90); RDW 14.1 % (11.5-15.5)
[2022-03-08 10:16] LABS: Magnesium 2.1 mg/dL (1.6-2.3)
[2022-03-08 10:17] LABS: Albumin 3.2 g/dL (3.5-5.0); Calcium 8.5 mg/dL (8.4-10.2); Potassium 3.7 mmol/L (3.5-5.1); Total Protein 6.1 g/dL (6.3-8.2)
[2022-03-08] MEDS: FUROSEMIDE 10 MG/ML 4 ML VIAL IV SCH ×2 (11:10→21:46)
[2022-03-08] MEDS: predniSONE 50 MG TAB PO SCH (11:11)
[2022-03-08 12:34] LABS: Neutrophils % (M) 66 %; Nucleated Red Blood Cells 2 /100 WBC (0-0); Total Cells Counted 200
[2022-03-08 12:35] LABS: Eosinophils # (M) 0.11 k/uL (0-0.7); Lymphocytes # (M) 0.97 k/uL (1.0-4.8); Monocytes # (M) 0.91 k/uL (0-1.0); Neutrophils # (M) 3.76 k/uL (1.3-7.7); WBC 5.7 k/uL (3.8-10.6)
[2022-03-08 12:38] LABS: Polychromasia Present
--- NOTE | 2022-03-08 13:09 | P.CNPUL ---
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 The patient was also found to have a small right-sided pleural effusion on the CAT scan of the chest and the pulmonary consultation was requested regarding possible thoracentesis. I saw the patient and I reviewed the ultrasound images. The fluid in the right-sided small and based on the ultrasound images, it is not very much accessible for thoracentesis at least without any significant complications. At the same time, the patient is quite comfortable at this point on room air oxygen. He is known to have coronary artery disease, previous pacemaker insertion, hypothyroidism, mental cell lymph ezequiel treated with systemic chemotherapy and following that he was switched to immunotherapy. His echocardiogram showing an EF of around 60-65%. CAT scan of the abdomen and pelvis showing scattered abdominal lymphadenopathy and intestinal wall thickening in the right lower pelvis. CAT scan of the chest showed extensive mediastinal lymphadenopathy and the patient was found to have bulky mediastinal lymph nodes measuring up to 4.5 cm in size in the right paratracheal and subcarinal area and there is also lymphadenopathy in his neck area that was noted. Present patient is very much consistent with underlying lymphoma. No significant cough. No sputum production. No fever or chills. White cell count of 5.7 with a hemoglobin of 8.9. Platelet count is at 123. Review of Systems Constitutional: Reports fatigue, Reports sweats, Reports weakness Eyes: denies as per HPI, denies blurred vision, denies bulging eye, denies decr eased vision, denies diplopia, denies discharge, denies dry eye, denies irritation, denies itching, denies pain, denies photophobia, denies loss of peripheral vision, denies loss of vision, denies tunnel vision/blind spots Ears: deny: decreased hearing, ear discharge, earache, tinnitus Ears, nose, mouth and throat: Reports as per HPI Breasts: absent: as per HPI, gynecomastia Cardiovascular: Reports as per HPI Respiratory: Reports as per HPI Gastrointestinal: Reports as per HPI Genitourinary: Reports as per HPI Musculoskeletal: Reports as per HPI Musculoskeletal: bilateral: ankle swelling, absent: ankle pain, ankle stiffness Integumentary: Reports as per HPI Neurological: Reports as per HPI Psychiatric: Reports as per HPI Endocrine: Reports as per HPI Hematologic/Lymphatic: Reports as per HPI Allergic/Immunologic: Reports as per HPI Past Medical History Past Medical History: Thyroid Disorder Additional Past Medical History / Comment(s): LBBB, hx gout, occ problem with balance, swollen hand from wasp sting, vertigo, lymphoma Last Myocardial Infarction Date:: 2012 History of Any Multi-Drug Resistant Organisms: None Reported Past Surgical History: Heart Catheterization With Stent, Orthopedic Surgery, Pacemaker Additional Past Surgical History / Comment(s): total 4 stents, removal of salivary gland and lymph node, cataracts, left knee arthroscopy Past Anesthesia/Blood Transfusion Reactions: Motion Sickness Date of Last Stent Placement:: 2012 Type of Cardiac Device: Permanent Pacemaker Device Placement Date:: 2012 Past Psychological History: No Psychological Hx Reported Smoking Status: Former smoker Past Alcohol Use History: None Reported Past Drug Use History: None Reported - Past Family History Mother Family Medical History: Cancer Sister(s) Family Medical History: Cancer Medications and Allergies Home Medications Medication Instructions Recorded Confirmed Type Atorvastatin [Lipitor] 80 mg PO PC-BRKFST 05/30/15 03/03/22 History Clopidogrel Bisulfate [Plavix] 75 mg PO -BRKFST 05/30/15 03/03/22 History Midodrine HCl [ProAmatine] 2.5 mg PO DAILY 05/30/15 03/03/22 History Cholecalciferol [Vitamin D3 (25 50 mcg PO DAILY 05/07/21 03/03/22 History Mcg = 1000 Iu)] Cyanocobalamin (Vitamin B-12) 1,000 mcg PO DAILY 05/07/21 03/03/22 History [Vitamin B-12] Levothyroxine Sodium [Synthroid] 75 mcg PO DAILY@0630 05/07/21 03/03/22 History levETIRAcetam [Keppra] 1,000 mg PO BID 05/07/21 03/03/22 History Metoprolol Succinate [Toprol XL] 25 mg PO DAILY 12/04/21 03/03/22 History Acalabrutinib [Calquence] 100 mg PO DAILY 03/03/22 03/03/22 History Allopurinol [Zyloprim] 100 mg PO W/BRKFST@0830 03/03/22 03/05/22 History Ascorbic Acid [Vitamin C] 500 mg PO DAILY 03/03/22 03/03/22 History Calcium Carbonate [Tums] 500 mg PO BID PRN 03/03/22 03/03/22 History Famotidine 40 mg PO HS 03/03/22 03/03/22 History HYDROcodone/APAP 10-325MG [[place] 1 tab PO Q6HR PRN 03/03/22 03/03/22 History 10-325] Losartan Potassium [Cozaar] 12.5 mg PO PC-BRKFST 03/03/22 03/03/22 History Sennosides/Docusate Sodium [Senna 1 cap PO HS 03/03/22 03/03/22 History Plus 8.6-50 mg Softgel] levETIRAcetam [Keppra] 250 mg PO BID 03/03/22 03/03/22 History Allergies Allergy/AdvReac Type Severity Reaction Status Date / Time No Known Allergies Allergy Verified 03/03/22 15:41 Physical Exam Vitals: Vital Signs Temp Pulse Resp BP Pulse Ox 03/08/22 12:00 85 16 111/72 96 03/08/22 09:08 90 16 03/08/22 09:07 97.6 F 90 16 130/67 96 03/08/22 03:41 97.9 F 85 14 129/74 95 03/08/22 00:10 97.8 F 81 16 125/77 95 03/07/22 19:45 97.9 F 101 H 15 128/65 96 03/07/22 16:00 98.3 F 88 15 111/59 95 Intake and Output 03/07/22 03/08/22 03/08/22 22:59 06:59 14:59 Intake Total 390 Balance 390 Intake: Intake, IV Titration 150 Amount Sodium Chloride 0.9% 1, 150 000 ml @ 50 mls/hr IV . Q20H [facility] Rx#:[id number] Oral 240 Other: Voiding Method Toilet Toilet Toilet # Voids 2 GENERAL: The patient is alert and oriented x3, not in any acute distress. Well developed, well nourished. HEENT: Pupils are round and equally reacting to light. EOMI. No scleral icterus. No conjunctival pallor. Normocephalic, atraumatic. No pharyngeal erythema. No thyromegaly. CARDIOVASCULAR: S1 and S2 present. No murmurs, rubs, or gallops. PULMONARY: Chest is clear to auscultation, no wheezing or crackles. ABDOMEN: Soft, nontender, nondistended, normoactive bowel sounds. No palpable organomegaly. MUSCULOSKELETAL: No joint swelling or deformity. EXTREMITIES: No cyanosis, clubbing, or pedal edema. NEUROLOGICAL: Gross neurological examination did not reveal any focal deficits. SKIN: No rashes. no petechiae. Results - Laboratory Findings CBC and BMP: 03/08/22 08:57 03/08/22 08:57 PT/INR, D-dimer PT 10.2 sec (9.0-12.0) 03/03/22 15:59 INR 0.9 (<1.2) 03/03/22 15:59 D-Dimer 5.62 mg/L FEU (<0.60) H 03/03/22 15:59 Abnormal lab findings: Abnormal Labs 03/03/22 03/03/22 03/03/22 15:59 15:59 15:59 WBC 3.3 L RBC 3.03 L Hgb 10.0 L Hct 30.8 L MCV 101.8 H Plt Count 114 L Blast Cells % Lymphocytes # (Manual) 0.20 L Metamyelocytes # (Man) 0.03 H Myelocytes # (Manual) 0.03 H Blast Cells # (Man) Nucleated RBCs 1 H Haptoglobin APTT 20.2 L D-Dimer 5.62 H Chloride Carbon Dioxide BUN 27 H Creatinine 1.86 H Glucose 104 H Alkaline Phosphatase 141 H Lactate Dehydrogenase Total Protein Albumin Urine Protein Urine Ketones Urine Blood Urine Bilirubin Ur Leukocyte Esterase Urine RBC Urine WBC Urine Bacteria Hyaline Casts Urine Mucus Urine Yeast (Budding) 03/04/22 03/04/22 03/04/22 01:33 09:23 09:23 WBC 2.8 L RBC 2.74 L Hgb 9.2 L Hct 28.4 L MCV 103.6 H Plt Count 112 L Blast Cells % 2 H* Lymphocytes # (Manual) 0.34 L Metamyelocytes # (Man) 0.08 H Myelocytes # (Manual) Blast Cells # (Man) 0.06 H Nucleated RBCs 1 H Haptoglobin APTT 50.2 H D-Dimer Chloride Carbon Dioxide 20 L BUN 28 H Creatinine 1.87 H Glucose Alkaline Phosphatase Lactate Dehydrogenase Total Protein 6.1 L Albumin 3.3 L Urine Protein Urine Ketones Urine Blood Urine Bilirubin Ur Leukocyte Esterase Urine RBC Urine WBC Urine Bacteria Hyaline Casts Urine Mucus Urine Yeast (Budding) 03/04/22 03/05/22 03/05/22 09:29 07:46 07:46 WBC 3.2 L RBC 2.65 L Hgb 8.9 L Hct 27.4 L MCV 103.4 H Plt Count 111 L Blast Cells % Lymphocytes # (Manual) 0.48 L Metamyelocytes # (Man) 0.03 H Myelocytes # (Manual) 0.06 H Blast Cells # (Man) Nucleated RBCs Haptoglobin APTT 50.6 H 53.6 H D-Dimer Chloride Carbon Dioxide BUN Creatinine Glucose Alkaline Phosphatase Lactate Dehydrogenase Total Protein Albumin Urine Protein Urine Ketones Urine Blood Urine Bilirubin Ur Leukocyte Esterase Urine RBC Urine WBC Urine Bacteria Hyaline Casts Urine Mucus Urine Yeast (Budding) 03/05/22 03/06/22 03/06/22 07:46 06:48 06:48 WBC 3.5 L RBC 2.65 L Hgb 9.0 L Hct 27.5 L MCV 103.8 H Plt Count 118 L Blast Cells % Lymphocytes # (Manual) 0.60 L Metamyelocytes # (Man) 0.07 H Myelocytes # (Manual) 0.04 H Blast Cells # (Man) Nucleated RBCs Haptoglobin APTT D-Dimer Chloride 109 H Carbon Dioxide 21 L BUN 31 H 34 H Creatinine 1.91 H 1.83 H Glucose 107 H Alkaline Phosphatase Lactate Dehydrogenase 834 H 855 H Total Protein 6.2 L 6.0 L Albumin 3.2 L 3.2 L Urine Protein Urine Ketones Urine Blood Urine Bilirubin Ur Leukocyte Esterase Urine RBC Urine WBC Urine Bacteria Hyaline Casts Urine Mucus Urine Yeast (Budding) 03/06/22 03/07/22 03/07/22 14:07 08:21 08:21 WBC RBC Hgb Hct MCV Plt Count Blast Cells % Lymphocytes # (Manual) Metamyelocytes # (Man) Myelocytes # (Manual) Blast Cells # (Man) Nucleated RBCs Haptoglobin 203.0 H APTT D-Dimer Chloride 109 H Carbon Dioxide 20 L BUN 36 H Creatinine 1.90 H Glucose 101 H Alkaline Phosphatase Lactate Dehydrogenase 928 H Total Protein Albumin Urine Protein 2+ H Urine Ketones 1+ H Urine Blood Large H Urine Bilirubin 1+ H Ur Leukocyte Esterase Trace H Urine RBC >182 H Urine WBC 20 H Urine Bacteria Rare H Hyaline Casts 22 H Urine Mucus Rare H Urine Yeast (Budding) Occasional H 03/08/22 03/08/22 08:57 08:57 WBC RBC 2.76 L Hgb 8.9 L Hct 28.7 L MCV 104.1 H Plt Count 123 L Blast Cells % Lymphocytes # (Manual) 0.97 L Metamyelocytes # (Man) Myelocytes # (Manual) Blast Cells # (Man) Nucleated RBCs 2 H Haptoglobin APTT D-Dimer Chloride 110 H Carbon Dioxide 20 L BUN 45 H Creatinine 2.34 H Glucose 120 H Alkaline Phosphatase 135 H Lactate Dehydrogenase Total Protein 6.1 L Albumin 3.2 L Urine Protein Urine Ketones Urine Blood Urine Bilirubin Ur Leukocyte Esterase Urine RBC Urine WBC Urine Bacteria Hyaline Casts Urine Mucus Urine Yeast (Budding) - Diagnostic Findings Chest x-ray: image reviewed CT scan - chest: image reviewed Assessment and Plan Plan: Right-sided pleural effusion, small, likely related to malignant lymphoma versus constrictive pericarditis. The pleural fluid is small, not amenable for thoracentesis based on ultrasound images obtained. Mental cell lymphoma Extensive thoracic/mediastinal in addition to abdominal lymphadenopathy, likely secondary to underlying lymphoma Constrictive pericarditis Edema upper and lower extremities probably related to constrictive pericarditis Chronic anemia secondary to above Chronic dyspnea, multifactorial, likely secondary to above-mentioned comorbidities Coronary artery disease with previous pacemaker insertion and the patient has a coronary stent Hypothyroidism History of seizure disorder Chronic kidney disease Plan Monitor the patient clinically The right-sided pleural effusion is small and not amenable for thoracentesis Continue diuretics Oncology follow-up We'll sign off the case and contact us back should there be any changes in condition
--- NOTE | 2022-03-08 13:28 | P.PN ---
Subjective This is an 81-year-old male with a past medical history of myocardial infarction coronary artery disease with previous stent in 2010 and in 2012, pacemaker implantation [place] [address] Lozano, hypertension, hyperlipidemia, hypothyroidism, seizure disorder, mantle cell lymphoma. Hefollows with Dr. Tapia last seen 4-5 months ago. Patient complains of shortness of breath for the past 4-5 weeks and gradually worsening. He denies any lower extremity edema. He does complain of chest pain that is severe on the left side of his chest whenever he lays flat in bed and is improved when he sits up. Patient initially presented to the hospital on March 03 and has been treated for acute kidney injury, exertional dyspnea V/Q scan showed low probability for PE and lower extremity Doppler negative for DVT, pancytopenia. There was concern on echocardiogram for constrictive pericarditis and thus this consult was requested. CT of the chest revealed pleural effusions and extensive thoracic adenopathy which is new compared to old exam from 2019. This is consistent with lymphoma. Atelectasis at the lung bases. No calcium deposits mentioned. Echocardiogram reveals borderline left ventricular hypertrophy, EF 60-65%, RVSP 39, septal bounce concerning for constrictive pericarditis. Mild tricuspid regurgitation. EKG is left bundle branch block 03/08/2022 Patient seen and examined at bedside, no acute distress. Vital signs are stable. Maintaining sinus mechanism HR 80s. He is maintaining oxygen saturations on room air. Currently maintained on, IV Lasix 40mg BID per nephrology. Aspririn 81mg nightly, Plavix 75 mg daily, metoprolol tartrate 25 mg twice a day ASSESSMENT Acute kidney injury Left sided chest pain when supine of unclear etiology Right-sided pleural effusion, small Constrictive pericarditis has been ruled out as no calcium deposits noted on CT of the chest Mantle cell lymphoma Extensive thoracic intermediastinal abdominal lymphadenopathy Pancytopenia History of coronary artery disease with previous stenting Pacemaker implantation Hypertension Hyperlipidemia Hypothyroidism Plan: Constrictive pericarditis has been ruled out as no calcium deposits noted on CT of the chest Continue Lasix managed by nephrology Oncology consulted Plan follow up with Dr. Tapia after discharge Please reach out with any further questions or concerns or change in patient's status. Thank you kindly for the consultation. Nurse practitioner note has been reviewed, I agree with documented findings and plan of care. Patient was seen and examined. Objective - Vital Signs Vital signs: Vital Signs Temp 97.6 F 03/08/22 09:07 Pulse 85 03/08/22 12:00 Resp 16 03/08/22 12:00 BP 111/72 03/08/22 12:00 Pulse Ox 96 03/08/22 12:00 FiO2 Intake & Output 03/07/22 03/08/22 03/08/22 18:59 06:59 18:59 Intake Total 960 Output Total 350 Balance 610 Intake: Intake, IV Titration 150 Amount Sodium Chloride 0.9% 1, 150 000 ml @ 50 mls/hr IV . Q20H [facility] Rx#:[id number] Oral 810 Output: Urine 350 Other: Voiding Method Urinal Toilet Toilet # Voids 1 2 - Labs CBC & Chem 7: 03/08/22 08:57 03/08/22 08:57 Labs: Abnormal Lab Results - Last 24 Hours (Table) 03/07/22 03/08/22 03/08/22 Range/Units 08:21 08:57 08:57 RBC 2.76 L (4.30-5.90) m/uL Hgb 8.9 L (13.0-17.5) gm/dL Hct 28.7 L (39.0-53.0) % MCV 104.1 H (80.0-100.0) fL Plt Count 123 L (150-450) k/uL Lymphocytes # (Manual) 0.97 L (1.0-4.8) k/uL Nucleated RBCs 2 H (0-0) /100 WBC Haptoglobin 203.0 H (31.2-198.0) mg/dL Chloride 110 H (98-107) mmol/L Carbon Dioxide 20 L (22-30) mmol/L BUN 45 H (9-20) mg/dL Creatinine 2.34 H (0.66-1.25) mg/dL Glucose 120 H (74-99) mg/dL Alkaline Phosphatase 135 H (38-126) U/L Total Protein 6.1 L (6.3-8.2) g/dL Albumin 3.2 L (3.5-5.0) g/dL
--- NOTE | 2022-03-08 15:56 | US ---
EXAMINATION TYPE: US venous doppler duplex UE LT DATE OF EXAM: 03/08/2022 COMPARISON: NONE CLINICAL HISTORY: swelling. SIDE PERFORMED: Left Left Arm: Negative for DVT Enlarged lymph nodes seen in neck, patient has lymphoma. IMPRESSION: No convincing evidence of DVT of the left upper extremity. Enlarged lymph nodes, known lymphoma.
[2022-03-08] MEDS: CALQUENCE 100 MG PO SCH ×2 (15:57→21:48)
--- NOTE | 2022-03-08 18:15 | P.PN ---
Subjective Progress Note Date: 03/08/22 Principal diagnosis: SOB, abd pain, lymphoma In f/u today pt cont to have upper abd discomfort and distension, he is experiencing SOB with activity, he can make it to the bathroom but it does take several minutes to recover. No N,V,bleeding, or diarrhea. Objective - Vital Signs Vital signs: Vital Signs Temp 97.6 F 03/08/22 15:49 Pulse 83 03/08/22 15:49 Resp 16 03/08/22 15:49 BP 116/69 03/08/22 15:49 Pulse Ox 94 L 03/08/22 15:49 FiO2 Intake & Output 03/07/22 03/08/22 03/08/22 18:59 06:59 18:59 Intake Total 960 Output Total 350 200 Balance 610 -200 Weight 73.482 kg Intake: Intake, IV Titration 150 Amount Sodium Chloride 0.9% 1, 150 000 ml @ 50 mls/hr IV . Q20H [facility] Rx#:[id number] Oral 810 Output: Urine 350 200 Other: Voiding Method Urinal Toilet Toilet # Voids 1 2 - Constitutional General appearance: Present: cooperative, mild distress, thin - EENT Eyes: Present: anicteric sclerae, EOMI ENT: Present: hearing grossly normal - Neck Neck: Present: lymphadenopathy (rt supraclavicular, 5 cm) - Respiratory Respiratory: bilateral: CTA - Cardiovascular Rhythm: regular Heart sounds: normal: S1, S2 Abnormal Heart Sounds: Absent: systolic murmur, diastolic murmur, rub, S3 Gallop, S4 Gallop, click, other - Peripheral edema leg Peripheral Edema: bilateral: 1+ - Gastrointestinal Gastrointestinal Comment(s): RUQ mass palpable General gastrointestinal: Present: normal bowel sounds, soft, tenderness - Neurologic Neurologic: Present: CNII-XII intact - Musculoskeletal Musculoskeletal: Present: generalized weakness, strength equal bilaterally - Psychiatric Psychiatric: Present: A&O x's 3, appropriate affect, intact judgment & insight - Labs CBC & Chem 7: 03/08/22 08:57 03/08/22 08:57 Labs: Abnormal Lab Results - Last 24 Hours (Table) 03/08/22 03/08/22 Range/Units 08:57 08:57 RBC 2.76 L (4.30-5.90) m/uL Hgb 8.9 L (13.0-17.5) gm/dL Hct 28.7 L (39.0-53.0) % MCV 104.1 H (80.0-100.0) fL Plt Count 123 L (150-450) k/uL Lymphocytes # (Manual) 0.97 L (1.0-4.8) k/uL Nucleated RBCs 2 H (0-0) /100 WBC Chloride 110 H (98-107) mmol/L Carbon Dioxide 20 L (22-30) mmol/L BUN 45 H (9-20) mg/dL Creatinine 2.34 H (0.66-1.25) mg/dL Glucose 120 H (74-99) mg/dL Alkaline Phosphatase 135 H (38-126) U/L Total Protein 6.1 L (6.3-8.2) g/dL Albumin 3.2 L (3.5-5.0) g/dL - Imaging and Cardiology US chest-adrian pl effusions, loculated Assessment and Plan (1) Dyspnea Current Visit: Yes Status: Acute Priority: High Code(s): R06.00 - DYSPNEA, UNSPECIFIED SNOMED Code(s): 077196708 (2) Mantle cell lymphoma Current Visit: Yes Status: Chronic Priority: High Code(s): C83.10 - MANTLE CELL LYMPHOMA, UNSPECIFIED SITE SNOMED Code(s): 856948067 Plan: SOB. Pulm evaluated pt, pl effusion too small/loculated. SOB more likely r/t mediastinal LAD. LUE swelling neg for DVT, suspect r/t LAD too. Pt is showing rapid progression of LAD. Added 100mg pred for 5 days to see if can regain some control of the lymphoma. Have requested pt resume calquence. Med sent for Pharmacy verification. TLS labs ordered. O2 for comfort Labs daily
[2022-03-08 19:47] LABS: % Iron Saturation 16.58 (15.00-50.00)
[2022-03-08] MEDS: FAMOTIDINE 20 MG TAB PO SCH (21:46)
[2022-03-09] MEDS: HEPARIN SODIUM,PORCINE/PF 5,000 UNIT/0.5 ML SYRINGE SQ SCH ×4 (00:30→23:19)
[2022-03-09] MEDS: HYDROcodone/APAP 10-325MG 1 EACH TAB PO PRN ×4 (05:04→23:22)
[2022-03-09] MEDS: LEVOTHYROXINE 75 MCG TAB PO SCH (05:47)
[2022-03-09 07:55] LABS: HCT 27.1 % (39.0-53.0); HGB 8.5 gm/dL (13.0-17.5); Hypochromasia Slight; MCHC 31.4 g/dL (31.0-37.0); MCV 105.2 fL (80.0-100.0); Macrocytosis Moderate; Mean Platelet Volume 9.1; Platelet Count 132 k/uL (150-450); RBC 2.58 m/uL (4.30-5.90); RDW 14.3 % (11.5-15.5)
[2022-03-09 08:14] LABS: Albumin 3.3 g/dL (3.5-5.0); Calcium 8.5 mg/dL (8.4-10.2); Potassium 4.1 mmol/L (3.5-5.1); Total Bilirubin 0.9 mg/dL (0.2-1.3); Total Protein 6.1 g/dL (6.3-8.2)
[2022-03-09 08:20] LABS: Magnesium 2.2 mg/dL (1.6-2.3); Phosphorus 3.3 mg/dL (2.5-4.5); Uric Acid 7.4 mg/dL (3.5-8.5)
--- NOTE | 2022-03-09 10:25 | P.PN ---
Subjective Progress Note Date: 03/08/22 This is a pleasant 9 years old male with past medical history of hypothyroidism, coronary artery disease status post stent and pacemaker, vertigo, lymphoma since 2012, left bundle-branch block. Seizure Was sent from her medicine doctor rule out pulmonary embolism. 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 His oncologist is Dr. Grady, and he was getting chemotherapy last summer, end of August and switched immunotherapy after that which did not help him much so started on a new chemotherapy but feels has lowered into once a day after he developed some low platelet count as he states. For the last week he was getting progressive shortness of breath with wounding and left-sided pleuritic-like chest pain that increases with deep breathing and movement and felt like sharp, He denies any vomiting or diarrhea, he has some difficulty to initiate urination but no dysuria Vitals are stable. wbc of 3.3, hemoglobin 10.0 and platelet count 114 D-dimer is elevated at 5.6. INR is normal is 0.9. Creatinine is elevated at 1.8. Last month was 1.4 and before that was ranging 1.0-1.3. Emergency room patient was started on heparin drip and normal saline 03/05/2022 Patient awake and alert, sitting check comfortable and pleasant with no d istress. His blood pressure improved and systolic is 128. However he has low urine output and his creatinine went up to 1.9. He remains on normal saline at 75 mL/h with nephrology team on the case. They recommended to keep holding his angiotensin receptor ruslan. His VQ scan showed low probability for PE, oncology/hematology team recommended to stop heparin drip. Patient understood started on subcu heparin. Also echocardiogram showing evidence of constrictive pericarditis however patient's with no symptoms. Ejection fraction is 60-65% 03/06/2022 Patient was admitted with dyspnea and elevated d-dimer however workup was negative with no PE or DVT per CTA and venous Doppler respectively. Echocardiogram showed constrictive pericarditis which is most likely the cause of his exertional dyspnea besides other causes which could be related to his cancer and deconditioning. Because of this regard to ask for health counselor evaluation. His ejection fraction is 60-65% He had CT of the abdomen and pelvis showing a right lung nodule which is a new ulcer there is a scattered abdominal lymphadenopathy and intestinal wall thickening in the right lower pelvis. Oncology teams on the case. Creatinine stable at 1.8 and IV fluid lowered to 50 mL per hour 03/07/2022 Patient with exertional dyspnea, investigations showed low probability for PE. There was suspicion of constrictive pericarditis however health counselor evaluated the patient and thinks mostly its restrictive pericarditis with fluid overload and recommended treatment with diuretics. Patient received 1 dose of Lasix today. Also had CT of the chest without contrast showing bilateral pleural effusion more on the right with atelectasis and enlarged mediastinal, axillary and abdominal lymphadenopathy. We will order a chest ultrasound, there is significant pleural effusion then pulmonary consult may be considered Abdomen that he is hemodynamically stable. His creatinine is 1.9 today IV fluids was discontinued as well 03/08/2022 Patient is currently lying in the bed. No complaints of chest pain. Shortness of breath remains the same. Also having left upper extremity swelling. Currently on room air. No complaints of nausea vomiting or abdominal pain or diarrhea. Maintained sinus rhythm. Patient is being continued on IV Lasix 40 mg twice daily as per nephrology. Laboratory data showed WBC 7.0 to make 0.5 and platelets 132, sodium 138, potassium 4.1 chloride 107 bicarb is 18 BUN 55 and creatinine 2.57, all living 3.3. Current medications reviewed. Objective - Vital Signs Vital signs: Vital Signs Temp 97.6 F 03/08/22 09:07 Pulse 85 03/08/22 12:00 Resp 16 03/08/22 12:00 BP 111/72 03/08/22 12:00 Pulse Ox 96 03/08/22 12:00 FiO2 Intake & Output 03/07/22 03/08/22 03/08/22 18:59 06:59 18:59 Intake Total 960 Output Total 350 Balance 610 Intake: Intake, IV Titration 150 Amount Sodium Chloride 0.9% 1, 150 000 ml @ 50 mls/hr IV . Q20H [facility] Rx#:[id number] Oral 810 Output: Urine 350 Other: Voiding Method Urinal Toilet Toilet # Voids 1 2 - Exam - Exam GENERAL: The patient is alert and oriented x3, not in any acute distress. Well developed, well nourished. HEENT: Pupils are round and equally reacting to light. EOMI. No scleral icterus. No conjunctival pallor. Normocephalic, atraumatic. No pharyngeal erythema. No thyromegaly. CARDIOVASCULAR: S1 and S2 present. No murmurs, rubs, or gallops. PULMONARY: Chest is clear to auscultation, no wheezing or crackles. ABDOMEN: Soft, nontender, nondistended, normoactive bowel sounds. No palpable organomegaly. MUSCULOSKELETAL: No joint swelling or deformity. EXTREMITIES: No cyanosis, clubbing, or pedal edema. NEUROLOGICAL: Gross neurological examination did not reveal any focal deficits. SKIN: No rashes. no petechiae. - Labs CBC & Chem 7: 03/09/22 06:14 03/09/22 06:14 Labs: Abnormal Lab Results - Last 24 Hours (Table) 03/07/22 03/08/22 03/08/22 Range/Units 08:21 08:57 08:57 RBC 2.76 L (4.30-5.90) m/uL Hgb 8.9 L (13.0-17.5) gm/dL Hct 28.7 L (39.0-53.0) % MCV 104.1 H (80.0-100.0) fL Plt Count 123 L (150-450) k/uL Lymphocytes # (Manual) 0.97 L (1.0-4.8) k/uL Nucleated RBCs 2 H (0-0) /100 WBC Haptoglobin 203.0 H (31.2-198.0) mg/dL Chloride 110 H (98-107) mmol/L Carbon Dioxide 20 L (22-30) mmol/L BUN 45 H (9-20) mg/dL Creatinine 2.34 H (0.66-1.25) mg/dL Glucose 120 H (74-99) mg/dL Alkaline Phosphatase 135 H (38-126) U/L Total Protein 6.1 L (6.3-8.2) g/dL Albumin 3.2 L (3.5-5.0) g/dL Assessment and Plan Assessment: Exertional dyspnea and atypical chest pain with elevated d-dimer . VQ scan showed low probability for PE, Doppler is negative for DVT. Most likely secondary to restrictive pericarditis and pleural effusion Right-sided pleural effusion. Small and not amenable for thoracentesis. Acute kidney injury, versus progressive chronic kidney disease. Unknown baseline. Hypovolemia and dehydration, present on admission. Improved Constrictive pericarditis has been ruled out and deposits noted on the ct of the chest. Mantle cell lymphoma intestinal, lymph nodes and spleen and he is receiving chemotherapy in form of acalbrutinib which is put on hold now Mild pancytopenia , mostly secondary to chemo therapy History of coronary artery disease status post stent and history of pacemaker implantation. Hypothyroidism History of seizure Plan: This is a pleasant 81 years old male who presents with elevated d-dimer and exertional dyspnea Ultrasound chest was done. Pulmonary was consulted for possible thoracentesis. Hematology/oncology team and is on board. Monitor creatinine and CBC. Hold Losartan, and lower the dose of metoprolol 25 mg down to 12.5. Nephrology consult Discontinue IV fluids. Patient was started on Lasix 40 mg twice daily. Follow- up renal function. Labs and medication were reviewed.. Monitor lytes and vitals. DVT and GI prophylaxis. DVT prophylaxis: heparin GI Prophylaxis: Pepcid PT/OT: Pending Prognosis is guarded Time with Patient: Greater than 30
[2022-03-09] MEDS: FUROSEMIDE 10 MG/ML 4 ML VIAL IV SCH ×2 (10:43→21:26)
[2022-03-09] MEDS: METOPROLOL TARTRATE 12.5 MG TAB PO SCH ×2 (10:43→21:26)
[2022-03-09] MEDS: levETIRAcetam 250 MG TAB PO SCH ×2 (10:44→21:26)
[2022-03-09] MEDS: levETIRAcetam 500 MG TAB PO SCH ×2 (10:44→21:26)
[2022-03-09] MEDS: predniSONE 50 MG TAB PO SCH (10:44)
[2022-03-09 11:11] LABS: Band Neutrophils % 3 %; Lymphocytes # (M) 0.91 k/uL (1.0-4.8); Metamyelocytes # (M) 0.07 k/uL (0); Metamyelocytes % 1 %; Monocytes # (M) 1.05 k/uL (0-1.0); Myelocytes # (M) 0.07 k/uL (0); Myelocytes % 1 %; Neutrophils % (M) 69 %; Nucleated Red Blood Cells 0 /100 WBC (0-0); Total Cells Counted 200
--- NOTE | 2022-03-09 11:32 | FL ---
EXAMINATION TYPE: FL barium swallow w video DATE OF EXAM: 03/09/2022 CLINICAL HISTORY: 81-year-old male with lymphoma, episodes of coughing and choking.. TECHNIQUE: Deglutition study is performed utilizing thin liquid barium, honey and nectar thick liqui d barium, barium thick applesauce, and barium coated cracker. COMPARISON: None. Total fluoroscopy time: 1 minute and 5 seconds. Total images: None. Real-time fluoroscopy support was provided to speech pathology. FINDINGS: Swallow initiation was mildly delayed with bolus free spilling to the level of the vallecula. The oral and pharyngeal phases show satisfactory initiation and propagation with all modalities teste d. Normal mastication is seen with solid modalities tested. There is no evidence of penetration or aspiration with any modality tested. There are mild vallecular and piriform sinus residuals. There is DISH with bridging anterior endplate spondylosis from C4 extending down. More bulky change a t C5-C6 impressing on to the posterior wall of the cervical esophagus without obstruction. IMPRESSION: 1. No penetration or aspiration. 2. Mild delay in swallow initiation. Mild residuals. 3. Incidental DISH. Please refer to speech therapist notes for further details if necessary.
--- NOTE | 2022-03-09 11:33 | P.PN ---
Subjective Patient is seen in follow-up for acute kidney injury. Renal function worsened from diuresis. Has been voiding. No vomiting or diarrhea. Oral intake poor. Denies chest pain or shortness of breath. Blood pressure stable. Vital signs are stable. General: No acute distress. HEENT: Head exam is unremarkable. LUNGS: Breath sounds decreased. HEART: Rate and Rhythm are regular. ABDOMEN: Soft, no distention. EXTREMITITES: 1+ edema. Objective - Vital Signs Vital signs: Vital Signs Temp 98.1 F 03/09/22 07:34 Pulse 91 03/09/22 08:00 Resp 16 03/09/22 08:00 BP 114/68 03/09/22 07:34 Pulse Ox 97 03/09/22 07:34 FiO2 Intake & Output 03/08/22 03/09/22 03/09/22 18:59 06:59 18:59 Intake Total 485 Output Total 200 150 100 Balance -200 335 -100 Weight 73.482 kg 78 kg Intake: Oral 485 Output: Urine 200 150 100 Other: Voiding Method Toilet Toilet Toilet # Voids 1 - Labs CBC & Chem 7: 03/09/22 06:14 03/09/22 06:14 Labs: Abnormal Lab Results - Last 24 Hours (Table) 03/08/22 03/08/22 03/09/22 Range/Units 08:57 08:57 06:14 RBC 2.58 L (4.30-5.90) m/uL Hgb 8.5 L (13.0-17.5) gm/dL Hct 27.1 L (39.0-53.0) % MCV 105.2 H (80.0-100.0) fL Plt Count 132 L (150-450) k/uL Lymphocytes # (Manual) 0.97 L 0.91 L (1.0-4.8) k/uL Monocytes # (Manual) 1.05 H (0-1.0) k/uL Metamyelocytes # (Man) 0.07 H (0) k/uL Myelocytes # (Manual) 0.07 H (0) k/uL Nucleated RBCs 2 H (0-0) /100 WBC Carbon Dioxide (22-30) mmol/L BUN (9-20) mg/dL Creatinine (0.66-1.25) mg/dL Glucose (74-99) mg/dL Iron 39 L (65-175) ug/dL Transferrin 168.0 L (204.0-354.0) mg/dL Ferritin 434.0 H (22.0-322.0) ng/mL Alkaline Phosphatase (38-126) U/L Total Protein (6.3-8.2) g/dL Albumin (3.5-5.0) g/dL 03/09/22 Range/Units 06:14 RBC (4.30-5.90) m/uL Hgb (13.0-17.5) gm/dL Hct (39.0-53.0) % MCV (80.0-100.0) fL Plt Count (150-450) k/uL Lymphocytes # (Manual) (1.0-4.8) k/uL Monocytes # (Manual) (0-1.0) k/uL Metamyelocytes # (Man) (0) k/uL Myelocytes # (Manual) (0) k/uL Nucleated RBCs (0-0) /100 WBC Carbon Dioxide 18 L (22-30) mmol/L BUN 55 H (9-20) mg/dL Creatinine 2.57 H (0.66-1.25) mg/dL Glucose 119 H (74-99) mg/dL Iron (65-175) ug/dL Transferrin (204.0-354.0) mg/dL Ferritin (22.0-322.0) ng/mL Alkaline Phosphatase 128 H (38-126) U/L Total Protein 6.1 L (6.3-8.2) g/dL Albumin 3.3 L (3.5-5.0) g/dL Assessment and Plan Plan: Assessment: 1. Acute kidney injury secondary to ATN secondary to hypotension and use of losartan. ?lymphoma induced GN vs renal infiltration of lymphoma (although kidneys not large in size). Patient's creatinine in 2020 was in the range of 1- 1.1. Creatinine was 1.86 on admission - 2.57 today. Renal function worsened from diuretics. No hydronephrosis noted on kidney ultrasound. 2. Echocardiogram suggestive of constrictive pericarditis. Cardiology following. 3. Mantle cell lymphoma. Oncology following. Uric acid, potassium and calcium normal. Extensive thoracic adenopathy noted on CAT scan. 4. Chronic kidney disease stage IIIa with baseline creatinine in the range of 1-1.1 in 2020 and was 1.3 as of 01/29/22. 5. Lower extremity edema with pleural effusions noted on CT chest. 6. Pancytopenia. Hematology following. Rule out iron deficiency. LDH high. Haptoglobin also high. Iron deficiency noted. 7. Metabolic acidosis secondary to acute kidney injury. Plan: Maintain IV Lasix. Continue to hold losartan for now. Avoid nephrotoxins. Continue to monitor renal function and urine output. Add IV iron. Add oral bicarb. Strict I's and O's.
[2022-03-09] MEDS: CLOPIDOGREL 75 MG TAB PO SCH (12:10)
[2022-03-09] MEDS: ATORVASTATIN 80 MG TAB PO SCH (12:10)
[2022-03-09] MEDS: CALQUENCE 100 MG PO SCH ×2 (12:10→21:26)
[2022-03-09] MEDS: allopurinoL 100 MG TAB PO SCH (12:10)
[2022-03-09] MEDS: CYANOCOBALAMIN 500 MCG TAB PO SCH (12:10)
[2022-03-09] MEDS: ASCORBIC ACID 500 MG TAB PO SCH (12:10)
[2022-03-09] MEDS: SODIUM BICARBONATE TAB 650 MG TAB PO SCH ×3 (12:12→21:26)
[2022-03-09] MEDS: SODIUM FERRIC GLUCONAT-SUCROSE 125 MG in SODIUM CHLORIDE 0.9% 100 ML IVPB SCH (13:56)
--- NOTE | 2022-03-09 17:59 | P.PN ---
Subjective Progress Note Date: 03/09/22 Principal diagnosis: SOB, abd pain, lymphoma In f/u today pt states may be a little less distention in his abdomen, left upper extremity is still pretty severely swollen. He was started on prednisone and resumed his calquence yesterday, no significant side effects to report tod ay. He is walking to the restroom. Objective - Vital Signs Vital signs: Vital Signs Temp 97.7 F 03/09/22 15:57 Pulse 89 03/09/22 15:57 Resp 18 03/09/22 15:57 BP 92/58 03/09/22 15:57 Pulse Ox 94 L 03/09/22 15:57 FiO2 Intake & Output 03/08/22 03/09/22 03/09/22 18:59 06:59 18:59 Intake Total 485 120 Output Total 200 150 100 Balance -200 335 20 Weight 73.482 kg 78 kg Intake: Oral 485 120 Output: Urine 200 150 100 Other: Voiding Method Toilet Toilet Toilet # Voids 1 - Constitutional General appearance: Present: cooperative, no acute distress, thin - EENT Eyes: Present: anicteric sclerae, EOMI ENT: Present: hearing grossly normal - Neck Neck: Present: lymphadenopathy - Respiratory Respiratory: bilateral: CTA - Cardiovascular Rhythm: regular Heart sounds: normal: S1, S2 Abnormal Heart Sounds: Absent: systolic murmur, diastolic murmur, rub, S3 Gallop, S4 Gallop, click, other - Gastrointestinal General gastrointestinal: Present: distended, soft, tenderness - Neurologic Neurologic: Present: CNII-XII intact - Musculoskeletal Musculoskeletal: Present: generalized weakness, strength equal bilaterally - Psychiatric Psychiatric: Present: A&O x's 3, appropriate affect, intact judgment & insight - Labs CBC & Chem 7: 03/09/22 06:14 03/09/22 06:14 Labs: Abnormal Lab Results - Last 24 Hours (Table) 03/08/22 03/09/22 03/09/22 Range/Units 08:57 06:14 06:14 RBC 2.58 L (4.30-5.90) m/uL Hgb 8.5 L (13.0-17.5) gm/dL Hct 27.1 L (39.0-53.0) % MCV 105.2 H (80.0-100.0) fL Plt Count 132 L (150-450) k/uL Lymphocytes # (Manual) 0.91 L (1.0-4.8) k/uL Monocytes # (Manual) 1.05 H (0-1.0) k/uL Metamyelocytes # (Man) 0.07 H (0) k/uL Myelocytes # (Manual) 0.07 H (0) k/uL Carbon Dioxide 18 L (22-30) mmol/L BUN 55 H (9-20) mg/dL Creatinine 2.57 H (0.66-1.25) mg/dL Glucose 119 H (74-99) mg/dL Iron 39 L (65-175) ug/dL Transferrin 168.0 L (204.0-354.0) mg/dL Ferritin 434.0 H (22.0-322.0) ng/mL Alkaline Phosphatase 128 H (38-126) U/L Total Protein 6.1 L (6.3-8.2) g/dL Albumin 3.3 L (3.5-5.0) g/dL Assessment and Plan (1) Dyspnea Current Visit: Yes Status: Acute Priority: High Code(s): R06.00 - DYSPNEA, UNSPECIFIED SNOMED Code(s): 351488965 (2) Mantle cell lymphoma Current Visit: Yes Status: Chronic Priority: High Code(s): C83.10 - MANTLE CELL LYMPHOMA, UNSPECIFIED SITE SNOMED Code(s): 994138188 Plan: SOB. Pulm evaluated pt, pl effusion too small/loculated. SOB more likely r/t mediastinal LAD. LUE swelling neg for DVT, suspect r/t LAD too. Pt is showing rapid progression of LAD. Added 100mg pred for 5 days to see if can regain some control of the lymphoma, resumed calquence. Have requested patient be given food to take with calquence. TLS labs reviewed-WNL. LDH ordered for AM. Labs daily
[2022-03-09] MEDS: FAMOTIDINE 20 MG TAB PO SCH (21:26)
[2022-03-10] MEDS: LEVOTHYROXINE 75 MCG TAB PO SCH (06:23)
[2022-03-10] MEDS: CLOPIDOGREL 75 MG TAB PO SCH (09:34)
[2022-03-10] MEDS: allopurinoL 100 MG TAB PO SCH (09:34)
[2022-03-10] MEDS: ATORVASTATIN 80 MG TAB PO SCH (09:34)
[2022-03-10] MEDS: levETIRAcetam 500 MG TAB PO SCH ×2 (09:35→20:45)
[2022-03-10] MEDS: SODIUM BICARBONATE TAB 650 MG TAB PO SCH ×3 (09:35→20:45)
[2022-03-10] MEDS: ASCORBIC ACID 500 MG TAB PO SCH (09:35)
[2022-03-10] MEDS: METOPROLOL TARTRATE 12.5 MG TAB PO SCH ×2 (09:35→20:46)
[2022-03-10] MEDS: HEPARIN SODIUM,PORCINE/PF 5,000 UNIT/0.5 ML SYRINGE SQ SCH ×3 (09:36→23:33)
[2022-03-10] MEDS: predniSONE 50 MG TAB PO SCH (09:36)
[2022-03-10] MEDS: CYANOCOBALAMIN 500 MCG TAB PO SCH (09:36)
[2022-03-10] MEDS: FUROSEMIDE 10 MG/ML 4 ML VIAL IV SCH (09:37)
[2022-03-10] MEDS: levETIRAcetam 250 MG TAB PO SCH ×2 (09:37→20:49)
[2022-03-10] MEDS: SODIUM FERRIC GLUCONAT-SUCROSE 125 MG in SODIUM CHLORIDE 0.9% 100 ML IVPB SCH (09:38)
[2022-03-10] MEDS: CALQUENCE 100 MG PO SCH ×2 (09:46→20:46)
[2022-03-10] MEDS: HYDROcodone/APAP 10-325MG 1 EACH TAB PO PRN ×3 (09:46→20:45)
[2022-03-10 09:50] LABS: HCT 31.7 % (39.0-53.0); HGB 9.6 gm/dL (13.0-17.5); Hypochromasia Moderate; MCHC 30.4 g/dL (31.0-37.0); MCV 108.7 fL (80.0-100.0); Macrocytosis Marked; Mean Platelet Volume 9.1; Platelet Count 129 k/uL (150-450); RBC 2.91 m/uL (4.30-5.90); RDW 14.8 % (11.5-15.5); WBC 13.4 k/uL (3.8-10.6)
[2022-03-10 10:13] LABS: Albumin 3.3 g/dL (3.5-5.0); Calcium 8.4 mg/dL (8.4-10.2); Magnesium 2.3 mg/dL (1.6-2.3); Potassium 3.7 mmol/L (3.5-5.1); Total Protein 6.2 g/dL (6.3-8.2)
--- NOTE | 2022-03-10 10:30 | P.PN ---
Subjective Patient is seen in follow-up for acute kidney injury. Renal function worsened from diuresis - creatinine fairly stable at 2.67 today. Has been voiding. No vomiting or diarrhea. Oral intake poor. Denies chest pain or shortness of breath. Blood pressure stable. Vital signs are stable. General: No acute distress. HEENT: Head exam is unremarkable. LUNGS: Breath sounds decreased. HEART: Rate and Rhythm are regular. ABDOMEN: Soft, no distention. EXTREMITITES: Trace edema. Objective - Vital Signs Vital signs: Vital Signs Temp 97.5 F L 03/10/22 08:00 Pulse 99 03/10/22 08:00 Resp 18 03/10/22 04:00 BP 103/60 03/10/22 08:00 Pulse Ox 97 03/10/22 08:00 FiO2 Intake & Output 03/09/22 03/10/22 03/10/22 18:59 06:59 18:59 Intake Total 120 270 Output Total 500 400 Balance -380 -130 Weight 78 kg Intake: Oral 120 270 Output: Urine 500 400 Other: Voiding Method Toilet Toilet - Labs CBC & Chem 7: 03/10/22 09:08 03/10/22 09:08 Labs: Abnormal Lab Results - Last 24 Hours (Table) 03/09/22 03/10/22 03/10/22 Range/Units 06:14 09:08 09:08 WBC 13.4 H (3.8-10.6) k/uL RBC 2.91 L (4.30-5.90) m/uL Hgb 9.6 L (13.0-17.5) gm/dL Hct 31.7 L (39.0-53.0) % MCV 108.7 H (80.0-100.0) fL MCHC 30.4 L (31.0-37.0) g/dL Plt Count 129 L (150-450) k/uL Lymphocytes # (Manual) 0.91 L (1.0-4.8) k/uL Monocytes # (Manual) 1.05 H (0-1.0) k/uL Metamyelocytes # (Man) 0.07 H (0) k/uL Myelocytes # (Manual) 0.07 H (0) k/uL Macrocytosis Marked A Chloride 108 H (98-107) mmol/L Carbon Dioxide 20 L (22-30) mmol/L BUN 68 H (9-20) mg/dL Creatinine 2.67 H (0.66-1.25) mg/dL Glucose 105 H (74-99) mg/dL Alkaline Phosphatase 127 H (38-126) U/L Lactate Dehydrogenase 1142 H (313-618) U/L Total Protein 6.2 L (6.3-8.2) g/dL Albumin 3.3 L (3.5-5.0) g/dL Assessment and Plan Plan: Assessment: 1. Acute kidney injury secondary to ATN secondary to hypotension and use of losartan. ?lymphoma induced GN vs renal infiltration of lymphoma (although kidneys not large in size). Patient's creatinine in 2020 was in the range of 1- 1.1. Creatinine was 1.86 on admission - 2.67 today. Renal function worsened from diuretics. No hydronephrosis noted on kidney ultrasound. 2. Echocardiogram suggestive of constrictive pericarditis. Cardiology following. 3. Mantle cell lymphoma. Oncology following. Uric acid, potassium and calcium normal. Extensive thoracic adenopathy noted on CAT scan. 4. Chronic kidney disease stage IIIa with baseline creatinine in the range of 1-1.1 in 2020 and was 1.3 as of 01/29/22. 5. Lower extremity edema with pleural effusions noted on CT chest. 6. Pancytopenia. Hematology following. Iron deficiency noted. LDH high. Haptoglobin also high. 7. Metabolic acidosis secondary to acute kidney injury. On oral bicarb. Better. Plan: Hold Lasix. Continue to hold losartan for now. Avoid nephrotoxins. Continue to monitor renal function and urine output. Maintain IV iron. Strict I's and O's.
--- NOTE | 2022-03-10 11:05 | P.PN ---
Subjective Progress Note Date: 03/09/22 This is a pleasant 9 years old male with past medical history of hypothyroidism, coronary artery disease status post stent and pacemaker, vertigo, lymphoma since 2012, left bundle-branch block. Seizure Was sent from her medicine doctor rule out pulmonary embolism. 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 His oncologist is Dr. Grady, and he was getting chemotherapy last summer, end of August and switched immunotherapy after that which did not help him much so started on a new chemotherapy but feels has lowered into once a day after he developed some low platelet count as he states. For the last week he was getting progressive shortness of breath with wounding and left-sided pleuritic-like chest pain that increases with deep breathing and movement and felt like sharp, He denies any vomiting or diarrhea, he has some difficulty to initiate urination but no dysuria Vitals are stable. wbc of 3.3, hemoglobin 10.0 and platelet count 114 D-dimer is elevated at 5.6. INR is normal is 0.9. Creatinine is elevated at 1.8. Last month was 1.4 and before that was ranging 1.0-1.3. Emergency room patient was started on heparin drip and normal saline 03/05/2022 Patient awake and alert, sitting check comfortable and pleasant with no d istress. His blood pressure improved and systolic is 128. However he has low urine output and his creatinine went up to 1.9. He remains on normal saline at 75 mL/h with nephrology team on the case. They recommended to keep holding his angiotensin receptor ruslan. His VQ scan showed low probability for PE, oncology/hematology team recommended to stop heparin drip. Patient understood started on subcu heparin. Also echocardiogram showing evidence of constrictive pericarditis however patient's with no symptoms. Ejection fraction is 60-65% 03/06/2022 Patient was admitted with dyspnea and elevated d-dimer however workup was negative with no PE or DVT per CTA and venous Doppler respectively. Echocardiogram showed constrictive pericarditis which is most likely the cause of his exertional dyspnea besides other causes which could be related to his cancer and deconditioning. Because of this regard to ask for marine reporter evaluation. His ejection fraction is 60-65% He had CT of the abdomen and pelvis showing a right lung nodule which is a new ulcer there is a scattered abdominal lymphadenopathy and intestinal wall thickening in the right lower pelvis. Oncology teams on the case. Creatinine stable at 1.8 and IV fluid lowered to 50 mL per hour 03/07/2022 Patient with exertional dyspnea, investigations showed low probability for PE. There was suspicion of constrictive pericarditis however marine reporter evaluated the patient and thinks mostly its restrictive pericarditis with fluid overload and recommended treatment with diuretics. Patient received 1 dose of Lasix today. Also had CT of the chest without contrast showing bilateral pleural effusion more on the right with atelectasis and enlarged mediastinal, axillary and abdominal lymphadenopathy. We will order a chest ultrasound, there is significant pleural effusion then pulmonary consult may be considered Abdomen that he is hemodynamically stable. His creatinine is 1.9 today IV fluids was discontinued as well 03/08/2022 Patient is currently lying in the bed. No complaints of chest pain. Shortness of breath remains the same. Also having left upper extremity swelling. Currently on room air. No complaints of nausea vomiting or abdominal pain or diarrhea. Maintained sinus rhythm. Patient is being continued on IV Lasix 40 mg twice daily as per nephrology. Laboratory data showed WBC 7.0 to make 0.5 and platelets 132, sodium 138, potassium 4.1 chloride 107 bicarb is 18 BUN 55 and creatinine 2.57, all living 3.3. 03/09/2022. Patient is currently resting in the bed. Currently oriented but seems to be more weak today. No complaints of chest pain or worsening shortness of breath. No leg swelling. Left upper extremity swelling is improving. No evidence of DVT noted on the duplex scan. Enlarging lymph nodes with known lymphoma. Renal function worsened today. Patient also having poor oral intake. Blood pressure is stable. Laboratory data showed WBC 7.0 hemoglobin 8.5 and platelets 132 sodium 138 potassium 4.1 BUN 55 and creatinine 2.57, nephrology and oncology is on board. Current medications reviewed. Objective - Vital Signs Vital signs: Vital Signs Temp 98.1 F 03/09/22 07:34 Pulse 83 03/09/22 14:00 Resp 16 03/09/22 14:00 BP 111/69 03/09/22 12:06 Pulse Ox 97 03/09/22 12:06 FiO2 Intake & Output 03/08/22 03/09/22 03/09/22 18:59 06:59 18:59 Intake Total 485 Output Total 200 150 100 Balance -200 335 -100 Weight 73.482 kg 78 kg Intake: Oral 485 Output: Urine 200 150 100 Other: Voiding Method Toilet Toilet Toilet # Voids 1 - Exam - Exam GENERAL: The patient is alert and oriented x3, not in any acute distress. Well developed, well nourished. HEENT: Pupils are round and equally reacting to light. EOMI. No scleral icterus. No conjunctival pallor. Normocephalic, atraumatic. No pharyngeal erythema. No thyromegaly. CARDIOVASCULAR: S1 and S2 present. No murmurs, rubs, or gallops. PULMONARY: Chest is clear to auscultation, no wheezing or crackles. ABDOMEN: Soft, nontender, nondistended, normoactive bowel sounds. No palpable organomegaly. MUSCULOSKELETAL: No joint swelling or deformity. EXTREMITIES: No cyanosis, clubbing, or pedal edema. NEUROLOGICAL: Gross neurological examination did not reveal any focal deficits. SKIN: No rashes. no petechiae. - Labs CBC & Chem 7: 03/10/22 09:08 03/10/22 09:08 Labs: Abnormal Lab Results - Last 24 Hours (Table) 03/08/22 03/09/22 03/09/22 Range/Units 08:57 06:14 06:14 RBC 2.58 L (4.30-5.90) m/uL Hgb 8.5 L (13.0-17.5) gm/dL Hct 27.1 L (39.0-53.0) % MCV 105.2 H (80.0-100.0) fL Plt Count 132 L (150-450) k/uL Lymphocytes # (Manual) 0.91 L (1.0-4.8) k/uL Monocytes # (Manual) 1.05 H (0-1.0) k/uL Metamyelocytes # (Man) 0.07 H (0) k/uL Myelocytes # (Manual) 0.07 H (0) k/uL Carbon Dioxide 18 L (22-30) mmol/L BUN 55 H (9-20) mg/dL Creatinine 2.57 H (0.66-1.25) mg/dL Glucose 119 H (74-99) mg/dL Iron 39 L (65-175) ug/dL Transferrin 168.0 L (204.0-354.0) mg/dL Ferritin 434.0 H (22.0-322.0) ng/mL Alkaline Phosphatase 128 H (38-126) U/L Total Protein 6.1 L (6.3-8.2) g/dL Albumin 3.3 L (3.5-5.0) g/dL Assessment and Plan Assessment: Exertional dyspnea and atypical chest pain with elevated d-dimer . VQ scan showed low probability for PE, Doppler is negative for DVT. Extensive thoracic and mediastinal, abdominal lymphadenopathy. Right-sided pleural effusion. Small and not amenable for thoracentesis. Acute kidney injury, versus progressive chronic kidney disease. Unknown baseline. Hypovolemia and dehydration, present on admission. Improved Constrictive pericarditis has been ruled out and no calcium deposits noted on the ct of the chest. Mantle cell lymphoma intestinal, lymph nodes and spleen and he is receiving chemotherapy in form of acalbrutinib which is put on hold now Mild pancytopenia , mostly secondary to chemo therapy History of coronary artery disease status post stent and history of pacemaker implantation. Hypothyroidism History of seizure Plan: This is a pleasant 81 years old male who presents with elevated d-dimer and exertional dyspnea Ultrasound chest was done. Pulmonary was consulted for possible thoracentesis. Right pleural effusion is small and not amenable for thoracentesis. Hematology/oncology team and is on board. Monitor creatinine and CBC. Hold Losartan, and lower the dose of metoprolol 25 mg down to 12.5. Nephrology is on board. Discontinue IV fluids. Patient was started on Lasix 40 mg twice daily. Follow- up renal function. Labs and medication were reviewed.. Monitor lytes and vitals. DVT and GI prophylaxis. DVT prophylaxis: heparin GI Prophylaxis: Pepcid PT/OT: Pending Prognosis is guarded Time with Patient: Greater than 30
[2022-03-10] MEDS ORDERED: ACETAMINOPHEN TAB 500 MG TAB PO PRN (14:45)
[2022-03-10] MEDS ORDERED: MAGNESIUM HYDROXIDE 2,400 MG/10 ML CUP PO PRN (14:46)
[2022-03-10] MEDS: SENNOSIDES-DOCUSATE SODIUM 1 EACH TAB PO SCH (15:17)
--- NOTE | 2022-03-10 18:53 | P.PN ---
Subjective Progress Note Date: 03/10/22 Principal diagnosis: SOB, abd pain, lymphoma In f/u today pt states distention in his abdomen stable, left upper extremity swelling is stable. He is walking to the restroom still. He is c/o of back/abd pain as well as general discomfort. He did have video swallow with no pene tration or aspiration seen. Objective - Vital Signs Vital signs: Vital Signs Temp 97.4 F L 03/10/22 12:00 Pulse 91 03/10/22 12:00 Resp 18 03/10/22 04:00 BP 94/57 03/10/22 12:00 Pulse Ox 97 03/10/22 12:00 FiO2 Intake & Output 03/09/22 03/10/22 03/10/22 18:59 06:59 18:59 Intake Total 120 270 Output Total 500 400 Balance -380 -130 Weight 78 kg Intake: Oral 120 270 Output: Urine 500 400 Other: Voiding Method Toilet Toilet Toilet - Constitutional General appearance: Present: cooperative, no acute distress, thin - EENT Eyes: Present: anicteric sclerae, EOMI ENT: Present: hearing grossly normal - Neck Details: lt supraclavicular LAD cont to be less pronounced, softer Neck: Present: lymphadenopathy - Respiratory Respiratory: bilateral: diminished - Cardiovascular Rhythm: regular Heart sounds: normal: S1, S2 Abnormal Heart Sounds: Absent: systolic murmur, diastolic murmur, rub, S3 Gallop, S4 Gallop, click, other - Peripheral edema leg Peripheral Edema: right: Trace, left: None - Gastrointestinal Gastrointestinal Comment(s): LUQ mass softer General gastrointestinal: Present: distended, normal bowel sounds, soft - Neurologic Neurologic: Present: CNII-XII intact - Musculoskeletal Musculoskeletal: Present: generalized weakness, strength equal bilaterally - Psychiatric Psychiatric: Present: A&O x's 3, appropriate affect, intact judgment & insight - Labs CBC & Chem 7: 03/10/22 09:08 03/10/22 09:08 Labs: Abnormal Lab Results - Last 24 Hours (Table) 03/10/22 03/10/22 Range/Units 09:08 09:08 WBC 13.4 H (3.8-10.6) k/uL RBC 2.91 L (4.30-5.90) m/uL Hgb 9.6 L (13.0-17.5) gm/dL Hct 31.7 L (39.0-53.0) % MCV 108.7 H (80.0-100.0) fL MCHC 30.4 L (31.0-37.0) g/dL Plt Count 129 L (150-450) k/uL Macrocytosis Marked A Chloride 108 H (98-107) mmol/L Carbon Dioxide 20 L (22-30) mmol/L BUN 68 H (9-20) mg/dL Creatinine 2.67 H (0.66-1.25) mg/dL Glucose 105 H (74-99) mg/dL Alkaline Phosphatase 127 H (38-126) U/L Lactate Dehydrogenase 1142 H (313-618) U/L Total Protein 6.2 L (6.3-8.2) g/dL Albumin 3.3 L (3.5-5.0) g/dL Assessment and Plan (1) Dyspnea Current Visit: Yes Status: Acute Priority: High Code(s): R06.00 - DYSPNEA, UNSPECIFIED SNOMED Code(s): 600579942 (2) Mantle cell lymphoma Current Visit: Yes Status: Chronic Priority: High Code(s): C83.10 - MANTLE CELL LYMPHOMA, UNSPECIFIED SITE SNOMED Code(s): 635740695 Plan: SOB. Pulm evaluated pt, pl effusion too small/loculated. SOB more likely r/t mediastinal LAD. LUE swelling neg for DVT, suspect r/t LAD too. Pt was showing rapid progression of LAD. 100mg pred for 5 days started 03/08/22 to see if can regain some control of the lymphoma, palpable LAD better, pt not necessarily feeling better though. Resumed calquence too. Have requested patient be given food to take with calquence. Did verify that unfortunately up this time there are no other IV therapy options. Calquence does have a 80% response rate with 40% achieving a CR with median time to response 7 weeks, pt has only been on for 4 weeks, did have a dose reduction 1 week prior to admit. Encouraged patient, aggressive supportive care. All the can be done at this time is continued to therapy and over the next week see how patient does. LDH reviewed, cont to increase. Nephrology for acute renal failure. Baseline cr about 1.2 Labs daily
[2022-03-10] MEDS: FAMOTIDINE 20 MG TAB PO SCH (20:45)
[2022-03-11] MEDS: LEVOTHYROXINE 75 MCG TAB PO SCH (06:10)
[2022-03-11] MEDS: allopurinoL 100 MG TAB PO SCH (08:24)
[2022-03-11] MEDS: HYDROcodone/APAP 10-325MG 1 EACH TAB PO PRN ×4 (08:24→20:55)
[2022-03-11] MEDS: HEPARIN SODIUM,PORCINE/PF 5,000 UNIT/0.5 ML SYRINGE SQ SCH ×3 (08:24→23:05)
[2022-03-11] MEDS: METOPROLOL TARTRATE 12.5 MG TAB PO SCH ×2 (08:25→20:53)
[2022-03-11] MEDS: CLOPIDOGREL 75 MG TAB PO SCH (08:25)
[2022-03-11] MEDS: SODIUM BICARBONATE TAB 650 MG TAB PO SCH ×3 (08:25→20:53)
[2022-03-11] MEDS: predniSONE 50 MG TAB PO SCH (08:25)
[2022-03-11] MEDS: levETIRAcetam 250 MG TAB PO SCH ×2 (08:25→20:53)
[2022-03-11] MEDS: ASCORBIC ACID 500 MG TAB PO SCH (08:25)
[2022-03-11] MEDS: CYANOCOBALAMIN 500 MCG TAB PO SCH (08:25)
[2022-03-11] MEDS: ATORVASTATIN 80 MG TAB PO SCH (08:25)
[2022-03-11] MEDS: CALQUENCE 100 MG PO SCH ×2 (08:26→20:53)
[2022-03-11] MEDS: SENNOSIDES-DOCUSATE SODIUM 1 EACH TAB PO SCH ×2 (08:26→20:53)
[2022-03-11] MEDS: levETIRAcetam 500 MG TAB PO SCH ×2 (08:37→20:53)
[2022-03-11] MEDS: SODIUM FERRIC GLUCONAT-SUCROSE 125 MG in SODIUM CHLORIDE 0.9% 100 ML IVPB SCH (09:30)
--- NOTE | 2022-03-11 10:23 | P.PN ---
Subjective Patient is seen in follow-up for acute kidney injury. Renal function worsened from diuresis - creatinine fairly stable at 2.67 yesterday. Has been voiding. No vomiting or diarrhea. Oral intake poor. Denies chest pain or shortness of breath. Blood pressure stable. Feels weak. Vital signs are stable. General: No acute distress. HEENT: Head exam is unremarkable. LUNGS: Breath sounds decreased. HEART: Rate and Rhythm are regular. ABDOMEN: Soft, no distention. EXTREMITITES: Trace edema. Objective - Vital Signs Vital signs: Vital Signs Temp 97.6 F 03/11/22 04:00 Pulse 83 03/11/22 04:00 Resp 18 03/11/22 04:00 BP 120/58 03/11/22 04:00 Pulse Ox 100 03/11/22 04:00 FiO2 Intake & Output 03/10/22 03/11/22 03/11/22 18:59 06:59 18:59 Other: Voiding Method Toilet Toilet # Voids 1 - Labs CBC & Chem 7: 03/10/22 09:08 03/10/22 09:08 Assessment and Plan Plan: Assessment: 1. Acute kidney injury secondary to ATN secondary to hypotension and use of losartan. ?lymphoma induced GN vs renal infiltration of lymphoma (although kidneys not large in size). Patient's creatinine in 2020 was in the range of 1- 1.1. Creatinine was 1.86 on admission - 2.67 yesterday. Renal function worsened from diuretics. No hydronephrosis noted on kidney ultrasound. 2. Echocardiogram suggestive of constrictive pericarditis. Cardiology following. 3. Mantle cell lymphoma. Oncology following. Uric acid, potassium and calcium normal. Extensive thoracic adenopathy noted on CAT scan. 4. Chronic kidney disease stage IIIa with baseline creatinine in the range of 1-1.1 in 2020 and was 1.3 as of 01/29/22. 5. Lower extremity edema with pleural effusions noted on CT chest. 6. Pancytopenia. Hematology following. Iron deficiency noted. LDH high. Haptoglobin also high. 7. Metabolic acidosis secondary to acute kidney injury. On oral bicarb. Better. Plan: Continue to hold Lasix. Continue to hold losartan for now. Avoid nephrotoxins. Continue to monitor renal function and urine output. Maintain IV iron. Strict I's and O's. Encourage oral intake. Morning labs pending.
[2022-03-11 11:05] LABS: HCT 27.1 % (39.0-53.0); HGB 8.5 gm/dL (13.0-17.5); Hypochromasia Slight; MCH 33.3 pg (25.0-35.0); MCHC 31.3 g/dL (31.0-37.0); MCV 106.6 fL (80.0-100.0); Macrocytosis Moderate; Mean Platelet Volume 8.9; Platelet Count 110 k/uL (150-450); RBC 2.55 m/uL (4.30-5.90); RDW 15.2 % (11.5-15.5); WBC 13.2 k/uL (3.8-10.6)
[2022-03-11 11:12] LABS: Albumin 2.9 g/dL (3.5-5.0); Calcium 8.2 mg/dL (8.4-10.2); Magnesium 2.3 mg/dL (1.6-2.3); Potassium 3.7 mmol/L (3.5-5.1); Total Bilirubin 0.9 mg/dL (0.2-1.3); Total Protein 5.7 g/dL (6.3-8.2)
[2022-03-11 13:04] VITALS: BMI 24.0
--- NOTE | 2022-03-11 17:33 | P.PN ---
Subjective Progress Note Date: 03/11/22 Principal diagnosis: SOB, abd pain, MCL In f/u today pt states distention in his abdomen stable, left upper extremity swelling is stable, maybe a little better. He is walking to the restroom, he states he walked the hallway yesterday. He c/o of back/abd pain is persistent. Objective - Vital Signs Vital signs: Vital Signs Temp 97.7 F 03/11/22 08:00 Pulse 95 03/11/22 14:00 Resp 18 03/11/22 14:00 BP 116/57 03/11/22 12:00 Pulse Ox 99 03/11/22 12:00 FiO2 Intake & Output 03/10/22 03/11/22 03/11/22 18:59 06:59 18:59 Weight 78 kg Other: Voiding Method Toilet Toilet # Voids 1 - Constitutional General appearance: Present: cooperative, no acute distress, thin - EENT Eyes: Present: anicteric sclerae, EOMI ENT: Present: hearing grossly normal - Neck Neck: Present: lymphadenopathy (lt supraclavicular adenopathy cont to be less pronounced) - Respiratory Respiratory: bilateral: CTA, diminished (bases), other (weak inspiratory effort) - Peripheral edema leg Peripheral Edema: bilateral: Trace - Gastrointestinal General gastrointestinal: Present: normal bowel sounds, soft, tenderness - Integumentary Integumentary: Present: pale - Neurologic Neurologic: Present: CNII-XII intact - Musculoskeletal Musculoskeletal: Present: generalized weakness - Psychiatric Psychiatric: Present: A&O x's 3, appropriate affect, intact judgment & insight - Labs CBC & Chem 7: 03/11/22 10:25 03/11/22 10:25 Labs: Abnormal Lab Results - Last 24 Hours (Table) 03/11/22 03/11/22 Range/Units 10:25 10:25 WBC 13.2 H (3.8-10.6) k/uL RBC 2.55 L (4.30-5.90) m/uL Hgb 8.5 L (13.0-17.5) gm/dL Hct 27.1 L (39.0-53.0) % MCV 106.6 H (80.0-100.0) fL Plt Count 110 L (150-450) k/uL Sodium 136 L (137-145) mmol/L Carbon Dioxide 19 L (22-30) mmol/L BUN 74 H (9-20) mg/dL Creatinine 2.53 H (0.66-1.25) mg/dL Glucose 105 H (74-99) mg/dL Calcium 8.2 L (8.4-10.2) mg/dL Total Protein 5.7 L (6.3-8.2) g/dL Albumin 2.9 L (3.5-5.0) g/dL Assessment and Plan (1) Dyspnea Current Visit: Yes Status: Acute Priority: High Code(s): R06.00 - DYSPNEA, UNSPECIFIED SNOMED Code(s): 276165795 (2) Mantle cell lymphoma Current Visit: Yes Status: Chronic Priority: High Code(s): C83.10 - MANTLE CELL LYMPHOMA, UNSPECIFIED SITE SNOMED Code(s): 572640653 Plan: SOB. Pulm evaluated pt, pl effusion too small/loculated. SOB more likely r/t mediastinal LAD-slightly omproved. LUE swelling neg for DVT, suspect r/t LAD- slightly improved. Pt was showing rapid progression of LAD. 100mg pred for 5 days started 03/08/22 to see if can regain some control of the lymphoma. The palpable LAD is better, pt not feeling better though. Resumed calquence too. Have requested patient be given food to take with calquence. Did verify that unfortunately at this time there are no other IV therapy options. Discussed response rates of Calquence with pt and daughter, with median time to response 7 weeks. Pt has been on for 4 weeks, did have a dose reduction 1 week prior to admit, held for a few days. Again encouraged patient. He needs to report his pain so it can be controlled. If he is in less pain then he can move about more and maintain his strength. Cont aggressive supportive care. Reviewed with pt and daughter that all that can be done at this time is to continue therapy and over the next week see how patient does. We also discussed treating symptoms only and hospice philosophy- pt not quite ready for that yet. Daughter wants pt to go home with her on DC. I highly recommended palliative care services. She agreed. Referral made. Nephrology for acute renal failure. Baseline cr about 1.2 Labs daily Will get info about next delivery of calquence for pt daughter so she can obtain for him Time with Patient: Greater than 30
[2022-03-11] MEDS: FAMOTIDINE 20 MG TAB PO SCH (20:53)
--- NOTE | 2022-03-11 23:22 | P.PN ---
Subjective Progress Note Date: 03/10/22 This is a pleasant 9 years old male with past medical history of hypothyroidism, coronary artery disease status post stent and pacemaker, vertigo, lymphoma since 2012, left bundle-branch block. Seizure Was sent from her medicine doctor rule out pulmonary embolism. 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 His oncologist is Dr. Grady, and he was getting chemotherapy last summer, end of August and switched immunotherapy after that which did not help him much so started on a new chemotherapy but feels has lowered into once a day after he developed some low platelet count as he states. For the last week he was getting progressive shortness of breath with wounding and left-sided pleuritic-like chest pain that increases with deep breathing and movement and felt like sharp, He denies any vomiting or diarrhea, he has some difficulty to initiate urination but no dysuria Vitals are stable. wbc of 3.3, hemoglobin 10.0 and platelet count 114 D-dimer is elevated at 5.6. INR is normal is 0.9. Creatinine is elevated at 1.8. Last month was 1.4 and before that was ranging 1.0-1.3. Emergency room patient was started on heparin drip and normal saline 03/05/2022 Patient awake and alert, sitting check comfortable and pleasant with no d istress. His blood pressure improved and systolic is 128. However he has low urine output and his creatinine went up to 1.9. He remains on normal saline at 75 mL/h with nephrology team on the case. They recommended to keep holding his angiotensin receptor ruslan. His VQ scan showed low probability for PE, oncology/hematology team recommended to stop heparin drip. Patient understood started on subcu heparin. Also echocardiogram showing evidence of constrictive pericarditis however patient's with no symptoms. Ejection fraction is 60-65% 03/06/2022 Patient was admitted with dyspnea and elevated d-dimer however workup was negative with no PE or DVT per CTA and venous Doppler respectively. Echocardiogram showed constrictive pericarditis which is most likely the cause of his exertional dyspnea besides other causes which could be related to his cancer and deconditioning. Because of this regard to ask for clock and watch hands painter evaluation. His ejection fraction is 60-65% He had CT of the abdomen and pelvis showing a right lung nodule which is a new ulcer there is a scattered abdominal lymphadenopathy and intestinal wall thickening in the right lower pelvis. Oncology teams on the case. Creatinine stable at 1.8 and IV fluid lowered to 50 mL per hour 03/07/2022 Patient with exertional dyspnea, investigations showed low probability for PE. 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 Patient received 1 dose of Lasix today. Also had CT of the chest without contrast showing bilateral pleural effusion more on the right with atelectasis and enlarged mediastinal, axillary and abdominal lymphadenopathy. We will order a chest ultrasound, there is significant pleural effusion then pulmonary consult may be considered Abdomen that he is hemodynamically stable. His creatinine is 1.9 today IV fluids was discontinued as well 03/08/2022 Patient is currently lying in the bed. No complaints of chest pain. Shortness of breath remains the same. Also having left upper extremity swelling. Currently on room air. No complaints of nausea vomiting or abdominal pain or diarrhea. Maintained sinus rhythm. Patient is being continued on IV Lasix 40 mg twice daily as per nephrology. Laboratory data showed WBC 7.0 to make 0.5 and platelets 132, sodium 138, potassium 4.1 chloride 107 bicarb is 18 BUN 55 and creatinine 2.57, all living 3.3. 03/09/2022. Patient is currently resting in the bed. Currently oriented but seems to be more weak today. No complaints of chest pain or worsening shortness of breath. No leg swelling. Left upper extremity swelling is improving. No evidence of DVT noted on the duplex scan. Enlarging lymph nodes with known lymphoma. Renal function worsened today. Patient also having poor oral intake. Blood pressure is stable. Laboratory data showed WBC 7.0 hemoglobin 8.5 and platelets 132 sodium 138 potassium 4.1 BUN 55 and creatinine 2.57, nephrology and oncology is on board. 03/10/2022 Patient is currently sitting in the chair. Awake alert oriented x3. On room air. Patient feels very weak. Shortness of breath is about the same. Otherwise renal function is worsening with creatinine level 2.67. IV Lasix on hold and patient was increased with oral intake. Patient does have very poor oral intake. No fever no chills. No nausea vomiting or abdominal pain or diarrhea. Laboratory showed WBC 13.4 hemoglobin 9.6 and platelets 129 Sodium 139 potassium 3.7 chloride 108 bicarb is 20 BUN 68 and creatinine 2.67 and blood sugar is 105 albumin 3.3 Oncology and nephrology is on board. Current medications reviewed. Objective - Vital Signs Vital signs: Vital Signs Temp 97.4 F L 03/10/22 12:00 Pulse 91 03/10/22 12:00 Resp 18 03/10/22 04:00 BP 94/57 03/10/22 12:00 Pulse Ox 97 03/10/22 12:00 FiO2 Intake & Output 03/09/22 03/10/22 03/10/22 18:59 06:59 18:59 Intake Total 120 270 Output Total 500 400 Balance -380 -130 Weight 78 kg Intake: Oral 120 270 Output: Urine 500 400 Other: Voiding Method Toilet Toilet Toilet - Exam - Exam GENERAL: The patient is alert and oriented x3, not in any acute distress. Well developed, well nourished. HEENT: Pupils are round and equally reacting to light. EOMI. No scleral icterus. No conjunctival pallor. Normocephalic, atraumatic. No pharyngeal erythema. No thyromegaly. CARDIOVASCULAR: S1 and S2 present. No murmurs, rubs, or gallops. PULMONARY: Chest is clear to auscultation, no wheezing or crackles. ABDOMEN: Soft, nontender, nondistended, normoactive bowel sounds. No palpable organomegaly. MUSCULOSKELETAL: No joint swelling or deformity. EXTREMITIES: No cyanosis, clubbing, or pedal edema. NEUROLOGICAL: Gross neurological examination did not reveal any focal deficits. SKIN: No rashes. no petechiae. - Labs CBC & Chem 7: 03/11/22 10:25 03/11/22 10:25 Labs: Abnormal Lab Results - Last 24 Hours (Table) 03/10/22 03/10/22 Range/Units 09:08 09:08 WBC 13.4 H (3.8-10.6) k/uL RBC 2.91 L (4.30-5.90) m/uL Hgb 9.6 L (13.0-17.5) gm/dL Hct 31.7 L (39.0-53.0) % MCV 108.7 H (80.0-100.0) fL MCHC 30.4 L (31.0-37.0) g/dL Plt Count 129 L (150-450) k/uL Macrocytosis Marked A Chloride 108 H (98-107) mmol/L Carbon Dioxide 20 L (22-30) mmol/L BUN 68 H (9-20) mg/dL Creatinine 2.67 H (0.66-1.25) mg/dL Glucose 105 H (74-99) mg/dL Alkaline Phosphatase 127 H (38-126) U/L Lactate Dehydrogenase 1142 H (313-618) U/L Total Protein 6.2 L (6.3-8.2) g/dL Albumin 3.3 L (3.5-5.0) g/dL Assessment and Plan Assessment: Exertional dyspnea and atypical chest pain with elevated d-dimer . VQ scan showed low probability for PE, Doppler is negative for DVT. improved now., Extensive thoracic and mediastinal, abdominal lymphadenopathy. Right-sided pleural effusion. Small and not amenable for thoracentesis. Acute kidney injury, versus progressive chronic kidney disease. Unknown baseline. Hypovolemia and dehydration, present on admission. Improved Constrictive pericarditis has been ruled out and no calcium deposits noted on the ct of the chest. Mantle cell lymphoma intestinal, lymph nodes and spleen and he is receiving luis felipe motherapy in form of acalbrutinib which is put on hold now Mild pancytopenia , mostly secondary to chemo therapy History of coronary artery disease status post stent and history of pacemaker implantation. Hypothyroidism History of seizure Plan: This is a pleasant 81 years old male who presents with elevated d-dimer and exertional dyspnea Ultrasound chest was done. Pulmonary was consulted for possible thoracentesis. Right pleural effusion is small and not amenable for thoracentesis. Hematology/oncology team and is on board. Monitor creatinine and CBC. Hold Losartan, and lower the dose of metoprolol 25 mg down to 12.5. Nephrology is on board. Discontinue IV fluids. Patient was on Lasix 40 mg twice daily. DCed due to worsening renal function. Follow-up renal function. Labs and medication were reviewed.. Monitor lytes and vitals. DVT and GI prophylaxis. DVT prophylaxis: heparin GI Prophylaxis: Pepcid PT/OT: Pending Prognosis is guarded Time with Patient: Greater than 30
--- NOTE | 2022-03-11 23:26 | P.PN ---
Subjective Progress Note Date: 03/11/22 This is a pleasant 9 years old male with past medical history of hypothyroidism, coronary artery disease status post stent and pacemaker, vertigo, lymphoma since 2012, left bundle-branch block. Seizure Was sent from her medicine doctor rule out pulmonary embolism. 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 His oncologist is Dr. Grady, and he was getting chemotherapy last summer, end of August and switched immunotherapy after that which did not help him much so started on a new chemotherapy but feels has lowered into once a day after he developed some low platelet count as he states. For the last week he was getting progressive shortness of breath with wounding and left-sided pleuritic-like chest pain that increases with deep breathing and movement and felt like sharp, He denies any vomiting or diarrhea, he has some difficulty to initiate urination but no dysuria Vitals are stable. wbc of 3.3, hemoglobin 10.0 and platelet count 114 D-dimer is elevated at 5.6. INR is normal is 0.9. Creatinine is elevated at 1.8. Last month was 1.4 and before that was ranging 1.0-1.3. Emergency room patient was started on heparin drip and normal saline 03/05/2022 Patient awake and alert, sitting check comfortable and pleasant with no d istress. His blood pressure improved and systolic is 128. However he has low urine output and his creatinine went up to 1.9. He remains on normal saline at 75 mL/h with nephrology team on the case. They recommended to keep holding his angiotensin receptor ruslan. His VQ scan showed low probability for PE, oncology/hematology team recommended to stop heparin drip. Patient understood started on subcu heparin. Also echocardiogram showing evidence of constrictive pericarditis however patient's with no symptoms. Ejection fraction is 60-65% 03/06/2022 Patient was admitted with dyspnea and elevated d-dimer however workup was negative with no PE or DVT per CTA and venous Doppler respectively. Echocardiogram showed constrictive pericarditis which is most likely the cause of his exertional dyspnea besides other causes which could be related to his cancer and deconditioning. Because of this regard to ask for engraver letter evaluation. His ejection fraction is 60-65% He had CT of the abdomen and pelvis showing a right lung nodule which is a new ulcer there is a scattered abdominal lymphadenopathy and intestinal wall thickening in the right lower pelvis. Oncology teams on the case. Creatinine stable at 1.8 and IV fluid lowered to 50 mL per hour 03/07/2022 Patient with exertional dyspnea, investigations showed low probability for PE. 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 Patient received 1 dose of Lasix today. Also had CT of the chest without contrast showing bilateral pleural effusion more on the right with atelectasis and enlarged mediastinal, axillary and abdominal lymphadenopathy. We will order a chest ultrasound, there is significant pleural effusion then pulmonary consult may be considered Abdomen that he is hemodynamically stable. His creatinine is 1.9 today IV fluids was discontinued as well 03/08/2022 Patient is currently lying in the bed. No complaints of chest pain. Shortness of breath remains the same. Also having left upper extremity swelling. Currently on room air. No complaints of nausea vomiting or abdominal pain or diarrhea. Maintained sinus rhythm. Patient is being continued on IV Lasix 40 mg twice daily as per nephrology. Laboratory data showed WBC 7.0 to make 0.5 and platelets 132, sodium 138, potassium 4.1 chloride 107 bicarb is 18 BUN 55 and creatinine 2.57, all living 3.3. 03/09/2022. Patient is currently resting in the bed. Currently oriented but seems to be more weak today. No complaints of chest pain or worsening shortness of breath. No leg swelling. Left upper extremity swelling is improving. No evidence of DVT noted on the duplex scan. Enlarging lymph nodes with known lymphoma. Renal function worsened today. Patient also having poor oral intake. Blood pressure is stable. Laboratory data showed WBC 7.0 hemoglobin 8.5 and platelets 132 sodium 138 potassium 4.1 BUN 55 and creatinine 2.57, nephrology and oncology is on board. 03/10/2022 Patient is currently sitting in the chair. Awake alert oriented x3. On room air. Patient feels very weak. Shortness of breath is about the same. Otherwise renal function is worsening with creatinine level 2.67. IV Lasix on hold and patient was increased with oral intake. Patient does have very poor oral intake. No fever no chills. No nausea vomiting or abdominal pain or diarrhea. Laboratory showed WBC 13.4 hemoglobin 9.6 and platelets 129 Sodium 139 potassium 3.7 chloride 108 bicarb is 20 BUN 68 and creatinine 2.67 and blood sugar is 105 albumin 3.3 Oncology and nephrology is on board. 03/11/2022 Patient is currently sitting in the chair. Awake alert and oriented x3. Feels very weak and lethargic. Patient did have very minimal oral intake. Patient was seen by ROLLER DIE CUTTING MACHINE OPERATOR and recommended appetite stimulant. Patient otherwise afebrile. No headache or dizziness or lightheadedness. Renal function slightly improved with creatinine level 2.53 today. Other laboratory data showed WBC 13.3 hemoglobin 8.5 and platelets 110 Sodium 136 potassium 3.7 chloride 106 bicarb is 19 BUN 74 and creatinine is 2.53 and calcium 8.2 and albumin 2.9. Patient is being continued on prednisone 100 mg daily. Also on Ferrlecit due to iron deficiency anemia. Current medications reviewed. Objective - Vital Signs Vital signs: Vital Signs Temp 97.7 F 03/11/22 08:00 Pulse 93 03/11/22 16:00 Resp 18 03/11/22 16:00 BP 112/68 03/11/22 16:00 Pulse Ox 97 03/11/22 16:00 FiO2 Intake & Output 03/11/22 03/11/22 03/12/22 06:59 18:59 06:59 Weight 78 kg Other: Voiding Method Toilet # Voids 1 - Exam - Exam GENERAL: The patient is alert and oriented x3, not in any acute distress. Well developed, well nourished. HEENT: Pupils are round and equally reacting to light. EOMI. No scleral icterus. No conjunctival pallor. Normocephalic, atraumatic. No pharyngeal erythema. No thyromegaly. CARDIOVASCULAR: S1 and S2 present. No murmurs, rubs, or gallops. PULMONARY: Chest is clear to auscultation, no wheezing or crackles. ABDOMEN: Soft, nontender, nondistended, normoactive bowel sounds. No palpable organomegaly. MUSCULOSKELETAL: No joint swelling or deformity. EXTREMITIES: No cyanosis, clubbing, or pedal edema. NEUROLOGICAL: Gross neurological examination did not reveal any focal deficits. SKIN: No rashes. no petechiae. - Labs CBC & Chem 7: 03/11/22 10:25 03/11/22 10:25 Labs: Abnormal Lab Results - Last 24 Hours (Table) 03/11/22 03/11/22 Range/Units 10:25 10:25 WBC 13.2 H (3.8-10.6) k/uL RBC 2.55 L (4.30-5.90) m/uL Hgb 8.5 L (13.0-17.5) gm/dL Hct 27.1 L (39.0-53.0) % MCV 106.6 H (80.0-100.0) fL Plt Count 110 L (150-450) k/uL Sodium 136 L (137-145) mmol/L Carbon Dioxide 19 L (22-30) mmol/L BUN 74 H (9-20) mg/dL Creatinine 2.53 H (0.66-1.25) mg/dL Glucose 105 H (74-99) mg/dL Calcium 8.2 L (8.4-10.2) mg/dL Total Protein 5.7 L (6.3-8.2) g/dL Albumin 2.9 L (3.5-5.0) g/dL Assessment and Plan Assessment: Exertional dyspnea and atypical chest pain with elevated d-dimer . VQ scan showed low probability for PE, Doppler is negative for DVT. improved now., Extensive thoracic and mediastinal, abdominal lymphadenopathy. Right-sided pleural effusion. Small and not amenable for thoracentesis. Acute kidney injury, versus progressive chronic kidney disease. Unknown baseline. Hypovolemia and dehydration, present on admission. Improved Constrictive pericarditis has been ruled out and no calcium deposits noted on the ct of the chest. Mantle cell lymphoma intestinal, lymph nodes and spleen and he is receiving c hemotherapy in form of acalbrutinib which is put on hold now Mild pancytopenia , mostly secondary to chemo therapy Iron deficiency anemia. On iron infusion History of coronary artery disease status post stent and history of pacemaker implantation. Hypothyroidism History of seizure Plan: This is a pleasant 81 years old male who presents with elevated d-dimer and exertional dyspnea Ultrasound chest was done. Pulmonary was consulted for possible thoracentesis. Right pleural effusion is small and not amenable for thoracentesis. Hematology/oncology team and is on board. Monitor creatinine and CBC. Hold Losartan, and lower the dose of metoprolol 25 mg down to 12.5. Nephrology is on board. Discontinue IV fluids. Patient was on Lasix 40 mg twice daily. DCed due to worsening renal function. Follow-up renal function. Labs and medication were reviewed.. Monitor lytes and vitals. DVT and GI prophylaxis. DVT prophylaxis: heparin GI Prophylaxis: Pepcid PT/OT: Pending Prognosis is guarded Time with Patient: Greater than 30
[2022-03-12] MEDS: HYDROcodone/APAP 10-325MG 1 EACH TAB PO PRN ×5 (02:00→20:30)
[2022-03-12] MEDS: LEVOTHYROXINE 75 MCG TAB PO SCH (06:42)
[2022-03-12 08:09] LABS: Albumin 2.8 g/dL (3.5-5.0); Calcium 7.9 mg/dL (8.4-10.2); Magnesium 2.4 mg/dL (1.6-2.3); Potassium 3.5 mmol/L (3.5-5.1); Total Bilirubin 0.7 mg/dL (0.2-1.3); Total Protein 5.5 g/dL (6.3-8.2); Uric Acid 8.6 mg/dL (3.5-8.5)
[2022-03-12 08:16] LABS: Anisocytosis Slight; HCT 24.8 % (39.0-53.0); HGB 8.1 gm/dL (13.0-17.5); MCH 34.1 pg (25.0-35.0); MCHC 32.5 g/dL (31.0-37.0); MCV 104.8 fL (80.0-100.0); Macrocytosis Moderate; Mean Platelet Volume 10.1; RBC 2.37 m/uL (4.30-5.90); RDW 16.5 % (11.5-15.5)
[2022-03-12] MEDS: METOPROLOL TARTRATE 12.5 MG TAB PO SCH ×2 (08:37→20:31)
[2022-03-12] MEDS: ATORVASTATIN 80 MG TAB PO SCH (08:37)
[2022-03-12] MEDS: HEPARIN SODIUM,PORCINE/PF 5,000 UNIT/0.5 ML SYRINGE SQ SCH ×2 (08:37→16:21)
[2022-03-12] MEDS: levETIRAcetam 500 MG TAB PO SCH ×2 (08:37→20:31)
[2022-03-12] MEDS: CYANOCOBALAMIN 500 MCG TAB PO SCH (08:37)
[2022-03-12] MEDS: ASCORBIC ACID 500 MG TAB PO SCH (08:37)
[2022-03-12] MEDS: allopurinoL 100 MG TAB PO SCH (08:37)
[2022-03-12] MEDS: SENNOSIDES-DOCUSATE SODIUM 1 EACH TAB PO SCH ×2 (08:37→20:31)
[2022-03-12] MEDS: CALQUENCE 100 MG PO SCH ×2 (08:38→20:32)
[2022-03-12] MEDS: CLOPIDOGREL 75 MG TAB PO SCH (08:38)
[2022-03-12] MEDS: levETIRAcetam 250 MG TAB PO SCH ×2 (08:38→20:31)
[2022-03-12] MEDS: predniSONE 50 MG TAB PO SCH (08:38)
[2022-03-12] MEDS: SODIUM BICARBONATE TAB 650 MG TAB PO SCH ×3 (08:38→20:30)
[2022-03-12] MEDS: SODIUM FERRIC GLUCONAT-SUCROSE 125 MG in SODIUM CHLORIDE 0.9% 100 ML IVPB SCH (08:48)
[2022-03-12] MEDS ORDERED: POTASSIUM CHLORIDE ER 20 MEQ TAB.ER PO STA (11:02)
--- NOTE | 2022-03-12 11:06 | P.PN ---
Subjective Patient is seen in follow-up for acute kidney injury. Renal function stable. Has been voiding. No vomiting or diarrhea. Oral intake poor. Denies chest pain or shortness of breath. Blood pressure stable. Feels weak. No changes overnight. Vital signs are stable. General: No acute distress. HEENT: Head exam is unremarkable. LUNGS: Breath sounds decreased. HEART: Rate and Rhythm are regular. ABDOMEN: Soft, no distention. EXTREMITITES: Trace edema. Objective - Vital Signs Vital signs: Vital Signs Temp 98 F 03/12/22 08:00 Pulse 93 03/12/22 08:00 Resp 17 03/12/22 08:00 BP 119/67 03/12/22 08:00 Pulse Ox 96 03/12/22 08:00 FiO2 Intake & Output 03/11/22 03/12/22 03/12/22 18:59 06:59 18:59 Intake Total 240 Balance 240 Weight 78 kg Intake: Oral 240 Other: Voiding Method Toilet # Voids 1 - Labs CBC & Chem 7: 03/12/22 07:33 03/12/22 07:33 Labs: Abnormal Lab Results - Last 24 Hours (Table) 03/11/22 03/11/22 03/12/22 Range/Units 10:25 10:25 07:33 WBC 13.2 H (3.8-10.6) k/uL RBC 2.55 L (4.30-5.90) m/uL Hgb 8.5 L (13.0-17.5) gm/dL Hct 27.1 L (39.0-53.0) % MCV 106.6 H (80.0-100.0) fL RDW (11.5-15.5) % Plt Count 110 L (150-450) k/uL Sodium 136 L (137-145) mmol/L Carbon Dioxide 19 L (22-30) mmol/L BUN 74 H 75 H (9-20) mg/dL Creatinine 2.53 H 2.28 H (0.66-1.25) mg/dL Glucose 105 H (74-99) mg/dL Uric Acid 8.6 H (3.5-8.5) mg/dL Calcium 8.2 L 7.9 L (8.4-10.2) mg/dL Magnesium 2.4 H (1.6-2.3) mg/dL Total Protein 5.7 L 5.5 L (6.3-8.2) g/dL Albumin 2.9 L 2.8 L (3.5-5.0) g/dL 03/12/22 Range/Units 07:33 WBC 11.9 H (3.8-10.6) k/uL RBC 2.37 L (4.30-5.90) m/uL Hgb 8.1 L (13.0-17.5) gm/dL Hct 24.8 L (39.0-53.0) % MCV 104.8 H (80.0-100.0) fL RDW 16.5 H (11.5-15.5) % Plt Count (150-450) k/uL Sodium (137-145) mmol/L Carbon Dioxide (22-30) mmol/L BUN (9-20) mg/dL Creatinine (0.66-1.25) mg/dL Glucose (74-99) mg/dL Uric Acid (3.5-8.5) mg/dL Calcium (8.4-10.2) mg/dL Magnesium (1.6-2.3) mg/dL Total Protein (6.3-8.2) g/dL Albumin (3.5-5.0) g/dL Assessment and Plan Plan: Assessment: 1. Acute kidney injury secondary to ATN secondary to hypotension and use of losartan. ?lymphoma induced GN vs renal infiltration of lymphoma (although kidneys not large in size). Patient's creatinine in 2020 was in the range of 1- 1.1. Creatinine was 1.86 on admission - 2.28 today. Renal function worsened from diuretics. No hydronephrosis noted on kidney ultrasound. 2. Echocardiogram suggestive of constrictive pericarditis. Cardiology following. 3. Mantle cell lymphoma. Oncology following. Uric acid, potassium and calcium normal. Extensive thoracic adenopathy noted on CAT scan. 4. Chronic kidney disease stage IIIa with baseline creatinine in the range of 1-1.1 in 2020 and was 1.3 as of 01/29/22. 5. Lower extremity edema with pleural effusions noted on CT chest. Improved. 6. Pancytopenia. Hematology following. Iron deficiency noted. LDH high. Haptoglobin also high. 7. Metabolic acidosis secondary to acute kidney injury. On oral bicarb. Better. 8. Hypokalemia from poor intake. Magnesium normal. Plan: Continue to hold Lasix. Continue to hold losartan for now. Avoid nephrotoxins. Continue to monitor renal function and urine output. Maintain IV iron. Strict I's and O's. Encourage oral intake. Replace potassium.
[2022-03-12 14:17] LABS: LDH 854 U/L (313-618); Phosphorus 3.8 mg/dL (2.5-4.5)
[2022-03-12 14:52] LABS: Myelocytes # (M) 0.12 k/uL (0); Myelocytes % 1 %; Nucleated Red Blood Cells 2 /100 WBC (0-0)
[2022-03-12 14:59] LABS: Platelet Count 98 k/uL (150-450)
[2022-03-12 15:02] LABS: Eosinophils # (M) 0.23 k/uL (0-0.7); Lymphocytes # (M) 2.53 k/uL (1.0-4.8); Monocytes # (M) 0.92 k/uL (0-1.0); Neutrophils % (M) 67 %; Total Cells Counted 300; WBC 11.5 k/uL (3.8-10.6)
[2022-03-12 15:03] LABS: Neutrophils # (M) 7.71 k/uL (1.3-7.7); Polychromasia Present
[2022-03-12 15:12] LABS: T4, Free (Free Thyroxine) 1.03 ng/dL (0.78-2.19)
--- NOTE | 2022-03-12 15:14 | P.CONS ---
History of Present Illness - Reason for Consult Consult date: 03/12/22 Goals of care Requesting physician: Baldemar E Sheet - Chief Complaint Dyspnea - History of Present Illness Sanford is a 81-year-old gentleman with a PMH of LA, CAD s/p stenting, PPM placement, HTN, HLD, seizures, and mantle cell lymphoma. He presented to the on 03/03 with complaints of dypnea with exertion, chest pain, and had an elevated d-dimer. He was subsequently worked up for a PE and it was ruled out. He had a VQ scan - low probability of PE, LE doppler - negative DVT, and a chest CT that was negative for a PE, but revealed extensive thoracic adenopathy and pleural effusions. There was concern on echocardiogram for constrictive pericarditis. Constrictive pericarditis has been ruled out as no calcium deposits noted on CT of the chest. 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 He also had an abd/pelvis new right lung nodule. He also has acute on chronic disease secondary to hyovolemea, and hypoperfusion. The patient had chemotherapy last summer, then had immunotherapy that he did not respond to. He has recently started a new chemotherapy regimen. Review of Systems Review Of Systems: Constitutional: No fever, no chills, no night sweats. + weakness and fatigue. HEENT: No headache. No blurred vision or double vision, no loss of vision. No loss of Hearing, no ringing in the ears, no dizziness. No nasal drainage or congestion. No epistaxis. No sore throat. Lungs: + shortness of breath, no cough, no sputum production. No wheezing. Cardiovascular: + intermittent chest pain, + lower extremity edema. No palpitations. Abdominal: + adominal distension and discomfort. No nausea, vomiting. Genitourinary: No dysuria, increased frequency, urgency. Musculoskeletal: No myalgias. + muscle weakness, with occasional problems with balance, no frequent falls. No back pain. No neck pain. Integumentary: No wounds, no lesions. No rash or pruritus. No unusual bruising. No change in hair or nails. Neurologic: No aphasia. No facial droop. No change in mentation. No head injury. No headache. No paralysis. No paresthesia. Psychiatric: No depression. No anxiety. No mood swings. Past Medical History Past Medical History: Thyroid Disorder Additional Past Medical History / Comment(s): LBBB, hx gout, occ problem with ba sil, swollen hand from wasp sting, vertigo, lymphoma Last Myocardial Infarction Date:: 2012 History of Any Multi-Drug Resistant Organisms: None Reported Past Surgical History: Heart Catheterization With Stent, Orthopedic Surgery, Pacemaker Additional Past Surgical History / Comment(s): total 4 stents, removal of salivary gland and lymph node, cataracts, left knee arthroscopy Past Anesthesia/Blood Transfusion Reactions: Motion Sickness Date of Last Stent Placement:: 2012 Type of Cardiac Device: Permanent Pacemaker Device Placement Date:: 2012 Past Psychological History: No Psychological Hx Reported Smoking Status: Former smoker Past Alcohol Use History: None Reported Past Drug Use History: None Reported - Past Family History Mother Family Medical History: Cancer Sister(s) Family Medical History: Cancer Medications and Allergies Home Medications Medication Instructions Recorded Confirmed Type Atorvastatin [Lipitor] 80 mg PO PC-BRKFST 05/30/15 03/03/22 History Clopidogrel Bisulfate [Plavix] 75 mg PO PC-BRKFST 05/30/15 03/03/22 History Midodrine HCl [ProAmatine] 2.5 mg PO DAILY 05/30/15 03/03/22 History Cholecalciferol [Vitamin D3 (25 50 mcg PO DAILY 05/07/21 03/03/22 History Mcg = 1000 Iu)] Cyanocobalamin (Vitamin B-12) 1,000 mcg PO DAILY 05/07/21 03/03/22 History [Vitamin B-12] Levothyroxine Sodium [Synthroid] 75 mcg PO DAILY@0630 05/07/21 03/03/22 History levETIRAcetam [Keppra] 1,000 mg PO BID 05/07/21 03/03/22 History Metoprolol Succinate [Toprol XL] 25 mg PO DAILY 12/04/21 03/03/22 History Acalabrutinib [Calquence] 100 mg PO DAILY 03/03/22 03/03/22 History Allopurinol [Zyloprim] 100 mg PO W/BRKFST@0830 03/03/22 03/05/22 History Ascorbic Acid [Vitamin C] 500 mg PO DAILY 03/03/22 03/03/22 History Calcium Carbonate [Tums] 500 mg PO BID PRN 03/03/22 03/03/22 History Famotidine 40 mg PO HS 03/03/22 03/03/22 History HYDROcodone/APAP 10-325MG [[place] 1 tab PO Q6HR PRN 03/03/22 03/03/22 History 10-325] Losartan Potassium [Cozaar] 12.5 mg PO PC-BRKFST 03/03/22 03/03/22 History Sennosides/Docusate Sodium [Senna 1 cap PO HS 03/03/22 03/03/22 History Plus 8.6-50 mg Softgel] levETIRAcetam [Keppra] 250 mg PO BID 03/03/22 03/03/22 History predniSONE 100 mg PO DAILY 5 Days #5 tab 03/12/22 Rx Allergies Allergy/AdvReac Type Severity Reaction Status Date / Time No Known Allergies Allergy Verified 03/03/22 15:41 Physical Exam Vitals: Vital Signs Temp Pulse Resp BP BP Pulse Ox 03/12/22 11:37 85 16 122/72 97 03/12/22 08:00 98 F 93 17 119/67 96 03/12/22 04:00 97.4 F L 81 18 106/63 98 03/12/22 02:00 80 18 03/12/22 00:00 97.6 F 80 18 115/71 97 03/11/22 20:00 97.8 F 80 18 127/75 94 L 03/11/22 16:00 93 18 112/68 97 Intake and Output 03/11/22 03/12/22 03/12/22 22:59 06:59 14:59 Intake Total 240 Balance 240 Intake: Oral 240 Other: Voiding Method Toilet Toilet # Voids 1 General: Patient awake alert and oriented x 3. No acute distress. HEENT: Head is atraumatic, normocephalic. Sclerae are clear. Pupils equal, round and reactive to light bilaterally. + [place] CV: Heart regular in rate and rhythm positive S1 and S2. No clicks, rubs or murmurs. No JVD. Peripheral pulses equal. 2/4 Lungs: Diminished bases. No wheezes rales or rhonchi. Respirations even and nonlabored. No intercostal retractions. on RA Abdomen/GI: + distended abdomen, bowel sounds present in all 4 quadrants. Bowel sounds normoactive. Musculoskeletal/ Extremities: No tenderness on muscular exam. No ecchymosis. + generalized weakness, equal strength bilaterally Vascular: Radial pulses equal. 2/4. + 2 upper and lower extremity edema Skin: No rash. Neurologic: Awake, alert and oriented times 3. Psychiatric: Appropriate mood and affect. Results CBC & Chem 7: 03/12/22 07:33 03/12/22 07:33 Labs: Abnormal Lab Results - Last 24 Hours (Table) 03/12/22 03/12/22 03/12/22 Range/Units 07:33 07:33 07:33 WBC 11.9 H (3.8-10.6) k/uL RBC 2.37 L (4.30-5.90) m/uL Hgb 8.1 L (13.0-17.5) gm/dL Hct 24.8 L (39.0-53.0) % MCV 104.8 H (80.0-100.0) fL RDW 16.5 H (11.5-15.5) % BUN 75 H (9-20) mg/dL Creatinine 2.28 H (0.66-1.25) mg/dL Uric Acid 8.6 H (3.5-8.5) mg/dL Calcium 7.9 L (8.4-10.2) mg/dL Magnesium 2.4 H (1.6-2.3) mg/dL Total Protein 5.5 L (6.3-8.2) g/dL Albumin 2.8 L (3.5-5.0) g/dL Procalcitonin 0.27 H (0.02-0.09) ng/mL Chest x-ray: report reviewed CT scan - abdomen: report reviewed CT scan - chest: report reviewed CT scan - pelvis: report reviewed US - abdomen: report reviewed Assessment and Plan Assessment: Reason for consult - goals of care Social * 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 * Able to feed self - yes * Who prepares meals - son * How many meals a day eaten - 2 * What percentage of meals eaten daily - 60% * Able to clean house/do laundry - no * Transportation - patient drives * Able to shop - no * Who manages medications - patient * Who manages finances - patient PPS score - 50% Psychological/Emotional * Dementia present - no * Insight and judgment - Intact * Depression - no * Suicidal thoughts - no * Good support system - yes, family * Patients goals - comfort * Frequent hospitalizations - yes * Desire to keep coming back to the hospital for treatment - no Plan: Symptoms * Pain - 12/10 back pain - chronic. Continue Tylenol and [place] prn * Fatigue - yes, continue iron infusions, Vit B-12, and Vit C * SOB - yes, continue prednisone, currently on RA * Insomnia - no * N/V - no, + occasional heartburn, continue tums pren and pepcid * Anxiety - no * Depression - no * Confusion - no * Agitation - no * Hallucinations - no * Appetite/weight loss - Appetite "sucks", Marinol started, continue Ensure TIDWM * Dysphagia - no * Constipation - no * Incontinence - no * Itch - npo Summary/Goals - Patient's medical history and current admission reviewed with the patient. When asking the patient his understanding about the Mantle Cell Lymphoma, he stated there is nothing else they can do for me. The patient was informed that according to the oncology note, there is rapid progression of LAD and no IV options. However, they can continue his current PO chemo for a week and see how he does. He stated that oncology also discussed treating symptoms only with him, but was not sure what that meant. The patient was told that they would no longer treat his cancer with chemo, but treat other conditions caused by the lymphoma. Palliative care and hospice philosophies explained to the patient. He stated that his goal is now comfort. He agreed to a hospice inform ational meeting as long as his daughter could be part of it. It was reiterated that hospice would mean no more aggressive treatment like chemo, and there would be no more coming back and forth to the hospital. The focus would be on symptom management and comfort to give him the best quality of life possible for his time remaining. The patient agreed again to a hospice informational meeting. A consult was placed and case management updated. Also spoke with the patient's daughter, Melissa, via telephone. Explained palliative care vs hospice philosophies with her. All questions answered. She was informed about her dad's desire to have a hospice informational meeting. She agreed. Informed her that hospice would be contacting her soon to set up a meeting. Recommendations - Home with daughter and hospice Advanced Directives - no, information provided Code Status - DNR Thank you for this consult Caitlin Colby [facility]- Palliative Care [facility] [id number] Email: [email or web address] Time with Patient: Greater than 30
--- NOTE | 2022-03-12 18:00 | P.DS ---
Providers Date of admission: 03/03/22 18:17 Expected date of discharge: 03/12/22 Attending physician: Baldemar Merida MD Consults: 03/03/22 18:22 Consult Physician Urgent Consulting Provider: Aubrey Dubon Consult Reason/Comments: Mantle cell lymphoma Do you want consulting provider notified?: Yes 03/04/22 10:23 Consult Physician Urgent Consulting Provider: Vaishnavi Austin Consult Reason/Comments: high creatinine Do you want consulting provider notified?: Yes 03/06/22 10:14 Consult Physician Urgent Consulting Provider: Fatmata Wilkinson Consult Reason/Comments: constrictive pericarditis Do you want consulting provider notified?: Yes 03/08/22 11:05 Consult Physician Urgent Consulting Provider: Eden Willard Consult Reason/Comments: pleural effusion,possibel thoracentesis Do you want consulting provider notified?: Yes 03/11/22 17:34 Consult to Palliative Care Routine Consulting Provider: Caitlin Colby Consult Reason/Comments: palliative care on DC Do you want consulting provider notified?: Yes, Notify in am Primary care physician: [facility] Course: 9 years old male with past medical history of hypothyroidism, coronary artery di sease status post stent and pacemaker, vertigo, lymphoma since 2012, left bundle-branch block. Seizure Was sent from her medicine doctor rule out pulmonary embolism. 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 His oncologist is Dr. Grady, and he was getting chemotherapy last summer, end of August and switched immunotherapy after that which did not help him much so started on a new chemotherapy but feels has lowered into once a day after he developed some low platelet count as he states. For the last week he was getting progressive shortness of breath with wounding and left-sided pleuritic-like chest pain that increases with deep breathing and movement and felt like sharp, He denies any vomiting or diarrhea, he has some difficulty to initiate urination but no dysuria Vitals are stable. wbc of 3.3, hemoglobin 10.0 and platelet count 114 D-dimer is elevated at 5.6. INR is normal is 0.9. Creatinine is elevated at 1.8. Last month was 1.4 and before that was ranging 1.0-1.3. Emergency room patient was started on heparin drip and normal saline 03/05/2022 Patient awake and alert, sitting check comfortable and pleasant with no distress. His blood pressure improved and systolic is 128. However he has low urine output and his creatinine went up to 1.9. He remains on normal saline at 75 mL/h with nephrology team on the case. They recommended to keep holding his angiotensin receptor rusaln. His VQ scan showed low probability for PE, oncology/hematology team recommended to stop heparin drip. Patient understood started on subcu heparin. Also echocardiogram showing evidence of constrictive pericarditis however patient's with no symptoms. Ejection fraction is 60-65% 03/06/2022 Patient was admitted with dyspnea and elevated d-dimer however workup was negative with no PE or DVT per CTA and venous Doppler respectively. Echocardiogram showed constrictive pericarditis which is most likely the cause of his exertional dyspnea besides other causes which could be related to his cancer and deconditioning. Because of this regard to ask for health informatics specialist evaluation. His ejection fraction is 60-65% He had CT of the abdomen and pelvis showing a right lung nodule which is a new ulcer there is a scattered abdominal lymphadenopathy and intestinal wall thickening in the right lower pelvis. Oncology teams on the case. Creatinine stable at 1.8 and IV fluid lowered to 50 mL per hour 03/07/2022 Patient with exertional dyspnea, investigations showed low probability for PE. There was suspicion of constrictive pericarditis however health informatics specialist evaluated the patient and thinks mostly its restrictive pericarditis with fluid overload and recommended treatment with diuretics. Patient received 1 dose of Lasix today. Also had CT of the chest without contrast showing bilateral pleural effusion more on the right with atelectasis and enlarged mediastinal, axillary and abdominal lymphadenopathy. We will order a chest ultrasound, there is significant pleural effusion then pulmonary consult may be considered Abdomen that he is hemodynamically stable. His creatinine is 1.9 today IV fluids was discontinued as well 03/08/2022 Patient is currently lying in the bed. No complaints of chest pain. Shortness of breath remains the same. Also having left upper extremity swelling. Currently on room air. No complaints of nausea vomiting or abdominal pain or diarrhea. Maintained sinus rhythm. Patient is being continued on IV Lasix 40 mg twice daily as per nephrology. Laboratory data showed WBC 7.0 to make 0.5 and platelets 132, sodium 138, potassium 4.1 chloride 107 bicarb is 18 BUN 55 and creatinine 2.57, all living 3.3. 03/09/2022. Patient is currently resting in the bed. Currently oriented but seems to be more weak today. No complaints of chest pain or worsening shortness of breath. No leg swelling. Left upper extremity swelling is improving. No evidence of DVT noted on the duplex scan. Enlarging lymph nodes with known lymphoma. Renal function worsened today. Patient also having poor oral intake. Blood pressure is stable. Laboratory data showed WBC 7.0 hemoglobin 8.5 and platelets 132 sodium 138 potassium 4.1 BUN 55 and creatinine 2.57, nephrology and oncology is on board. 03/10/2022 Patient is currently sitting in the chair. Awake alert oriented x3. On room air. Patient feels very weak. Shortness of breath is about the same. Otherwise renal function is worsening with creatinine level 2.67. IV Lasix on hold and patient was increased with oral intake. Patient does have very poor oral intake. No fever no chills. No nausea vomiting or abdominal pain or diarrhea. Laboratory showed WBC 13.4 hemoglobin 9.6 and platelets 129 Sodium 139 potassium 3.7 chloride 108 bicarb is 20 BUN 68 and creatinine 2.67 and blood sugar is 105 albumin 3.3 Oncology and nephrology is on board. 03/11/2022 Patient is currently sitting in the chair. Awake alert and oriented x3. Feels very weak and lethargic. Patient did have very minimal oral intake. Patient was seen by EQUIPMENT OILER and recommended appetite stimulant. Patient otherwise afebrile. No headache or dizziness or lightheadedness. Renal function slightly improved with creatinine level 2.53 today. Other laboratory data showed WBC 13.3 hemoglobin 8.5 and platelets 110 Sodium 136 potassium 3.7 chloride 106 bicarb is 19 BUN 74 and creatinine is 2.53 and calcium 8.2 and albumin 2.9. Patient is being continued on prednisone 100 mg daily. Also on Ferrlecit due to iron deficiency anemia. 03/12/2022 Patient to be discharged home with hospice Plan - Discharge Summary Discharge Rx Participant: Yes New Discharge Prescriptions: New predniSONE 100 mg PO DAILY 5 Days #5 tab Continue Clopidogrel Bisulfate [Plavix] 75 mg PO PC-BRKFST Atorvastatin [Lipitor] 80 mg PO PC-BRKFST Midodrine HCl [ProAmatine] 2.5 mg PO DAILY Levothyroxine Sodium [Synthroid] 75 mcg PO DAILY@0630 Cyanocobalamin (Vitamin B-12) [Vitamin B-12] 1,000 mcg PO DAILY levETIRAcetam [Keppra] 1,000 mg PO BID Cholecalciferol [Vitamin D3 (25 Mcg = 1000 Iu)] 50 mcg PO DAILY Metoprolol Succinate [Toprol XL] 25 mg PO DAILY Sennosides/Docusate Sodium [Senna Plus 8.6-50 mg Softgel] 1 cap PO HS Calcium Carbonate [Tums] 500 mg PO BID PRN PRN Reason: ACID REFLUX Ascorbic Acid [Vitamin C] 500 mg PO DAILY Allopurinol [Zyloprim] 100 mg PO W/BRKFST@0830 Losartan Potassium [Cozaar] 12.5 mg PO PC-KT levETIRAcetam [Keppra] 250 mg PO BID HYDROcodone/APAP 10-325MG [[place] 10-325] 1 tab PO Q6HR PRN PRN Reason: Pain Famotidine 40 mg PO HS Acalabrutinib [Calquence] 100 mg PO DAILY Discharge Medication List Atorvastatin [Lipitor] 80 mg PO -BRKT 05/30/15 [History] Clopidogrel Bisulfate [Plavix] 75 mg PO -BRKT 05/30/15 [History] Midodrine HCl [ProAmatine] 2.5 mg PO DAILY 05/30/15 [History] Cholecalciferol [Vitamin D3 (25 Mcg = 1000 Iu)] 50 mcg PO DAILY 05/07/21 [History] Cyanocobalamin (Vitamin B-12) [Vitamin B-12] 1,000 mcg PO DAILY 05/07/21 [History] Levothyroxine Sodium [Synthroid] 75 mcg PO DAILY@0630 05/07/21 [History] levETIRAcetam [Keppra] 1,000 mg PO BID 05/07/21 [History] Metoprolol Succinate [Toprol XL] 25 mg PO DAILY 12/04/21 [History] Acalabrutinib [Calquence] 100 mg PO DAILY 03/03/22 [History] Allopurinol [Zyloprim] 100 mg PO W/BRKFST@0830 03/03/22 [History] Ascorbic Acid [Vitamin C] 500 mg PO DAILY 03/03/22 [History] Calcium Carbonate [Tums] 500 mg PO BID PRN 03/03/22 [History] Famotidine 40 mg PO HS 03/03/22 [History] HYDROcodone/APAP 10-325MG [[place] 10-325] 1 tab PO Q6HR PRN 03/03/22 [History] Losartan Potassium [Cozaar] 12.5 mg PO PC-BRKFST 03/03/22 [History] Sennosides/Docusate Sodium [Senna Plus 8.6-50 mg Softgel] 1 cap PO HS 03/03/22 [History] levETIRAcetam [Keppra] 250 mg PO BID 03/03/22 [History] predniSONE 100 mg PO DAILY 5 Days #5 tab 03/12/22 [Rx] Follow up Appointment(s)/Referral(s): Janina Balderas NPC [Nurse Practitioner] - 03/15/22 10:00 am Severo Rosales III, MD [Primary Care Provider] - 1-2 days [facility] [NON-STAFF] - Discharge Disposition: HOME WITH HOSPICE
--- NOTE | 2022-03-12 18:53 | P.PN ---
Subjective Progress Note Date: 03/12/22 Principal diagnosis: Concern progression ROSALIND Restarted on Calquence, recheck TLS today He is still not feeling well and has been questioning hospice readiness, he has just recently started therapy with Calquence therefore adequate timing has not been sustained for being able to identify response, he agrees to continue on medication for a few more weeks, uder the care of palliative care to see if he starts feeling a bit better. Objective - Vital Signs Vital signs: Vital Signs Temp 98 F 03/12/22 08:00 Pulse 93 03/12/22 08:00 Resp 17 03/12/22 08:00 BP 119/67 03/12/22 08:00 Pulse Ox 96 03/12/22 08:00 FiO2 Intake & Output 03/11/22 03/12/22 03/12/22 18:59 06:59 18:59 Weight 78 kg Other: Voiding Method Toilet # Voids 1 - Exam - Constitutional General appearance: cooperative, thin - EENT Eyes: EOMI ENT: hard of hearing - Neck Neck: normal ROM - Respiratory Respiratory: bilateral: diminished - Cardiovascular Rhythm: regularly irregular - Gastrointestinal General gastrointestinal: soft - Integumentary Integumentary: pale - Neurologic Neurologic: CNII-XII intact - Musculoskeletal Musculoskeletal: generalized weakness - Psychiatric Psychiatric: A&O x's 3, appropriate affect - Labs CBC & Chem 7: 03/12/22 07:33 03/12/22 07:33 Labs: Abnormal Lab Results - Last 24 Hours (Table) 03/11/22 03/11/22 03/12/22 Range/Units 10:25 10:25 07:33 WBC 13.2 H (3.8-10.6) k/uL RBC 2.55 L (4.30-5.90) m/uL Hgb 8.5 L (13.0-17.5) gm/dL Hct 27.1 L (39.0-53.0) % MCV 106.6 H (80.0-100.0) fL RDW (11.5-15.5) % Plt Count 110 L (150-450) k/uL Sodium 136 L (137-145) mmol/L Carbon Dioxide 19 L (22-30) mmol/L BUN 74 H 75 H (9-20) mg/dL Creatinine 2.53 H 2.28 H (0.66-1.25) mg/dL Glucose 105 H (74-99) mg/dL Uric Acid 8.6 H (3.5-8.5) mg/dL Calcium 8.2 L 7.9 L (8.4-10.2) mg/dL Magnesium 2.4 H (1.6-2.3) mg/dL Total Protein 5.7 L 5.5 L (6.3-8.2) g/dL Albumin 2.9 L 2.8 L (3.5-5.0) g/dL 03/12/22 Range/Units 07:33 WBC 11.9 H (3.8-10.6) k/uL RBC 2.37 L (4.30-5.90) m/uL Hgb 8.1 L (13.0-17.5) gm/dL Hct 24.8 L (39.0-53.0) % MCV 104.8 H (80.0-100.0) fL RDW 16.5 H (11.5-15.5) % Plt Count (150-450) k/uL Sodium (137-145) mmol/L Carbon Dioxide (22-30) mmol/L BUN (9-20) mg/dL Creatinine (0.66-1.25) mg/dL Glucose (74-99) mg/dL Uric Acid (3.5-8.5) mg/dL Calcium (8.4-10.2) mg/dL Magnesium (1.6-2.3) mg/dL Total Protein (6.3-8.2) g/dL Albumin (3.5-5.0) g/dL Assessment and Plan (1) Dyspnea Narrative/Plan: Presumatve PE, however CTA unable to be done with renal function, therefore VQ ordered as well as doppler Current Visit: Yes Status: Acute Priority: High Code(s): R06.00 - DYSPNEA, UNSPECIFIED SNOMED Code(s): 647847440 (2) Mantle cell lymphoma Narrative/Plan: Concern of progression Monitor daily cbc and renal function Restart Calquence No active TLS at this time Current Visit: Yes Status: Chronic Priority: High Code(s): C83.10 - MANTLE CELL LYMPHOMA, UNSPECIFIED SITE SNOMED Code(s): 588056314 (3) Acute kidney failure Narrative/Plan: nephrology following uric acid mild elevation, not able to be treated at this time. monitor tumor lysis Current Visit: Yes Status: Acute Code(s): N17.9 - ACUTE KIDNEY FAILURE, UNSPECIFIED SNOMED Code(s): 49949351 Plan: COntinue IV Hydration Check Tumor Lysis Daily CBC He is still not feeling well and has been questioning hospice readiness, he has just recently started therapy with Calquence therefore adequate timing has not been sustained for being able to identify response, he agrees to continue on medication for a few more weeks, uder the care of palliative care to see if he starts feeling a bit better. Dr. Sr: I have completed the full history and physical and developed the full ipression and plan, agree with above dictation, dictated as a scribe
[2022-03-12] MEDS: FAMOTIDINE 20 MG TAB PO SCH (20:31)
[2022-03-13] MEDS: HYDROcodone/APAP 10-325MG 1 EACH TAB PO PRN ×4 (00:26→13:18)
[2022-03-13] MEDS: HEPARIN SODIUM,PORCINE/PF 5,000 UNIT/0.5 ML SYRINGE SQ SCH ×2 (00:44→09:16)
[2022-03-13] MEDS: LEVOTHYROXINE 75 MCG TAB PO SCH (06:13)
[2022-03-13 08:05] LABS: Magnesium 2.4 mg/dL (1.6-2.3); Potassium 4.1 mmol/L (3.5-5.1)
[2022-03-13] MEDS: CALQUENCE 100 MG PO SCH (09:15)
[2022-03-13] MEDS: levETIRAcetam 250 MG TAB PO SCH (09:16)
[2022-03-13] MEDS: allopurinoL 100 MG TAB PO SCH (09:16)
[2022-03-13] MEDS: METOPROLOL TARTRATE 12.5 MG TAB PO SCH (09:16)
[2022-03-13] MEDS: levETIRAcetam 500 MG TAB PO SCH (09:16)
[2022-03-13] MEDS: ATORVASTATIN 80 MG TAB PO SCH (09:16)
[2022-03-13] MEDS: predniSONE 50 MG TAB PO SCH (09:17)
[2022-03-13] MEDS: ASCORBIC ACID 500 MG TAB PO SCH (09:17)
[2022-03-13] MEDS: CYANOCOBALAMIN 500 MCG TAB PO SCH (09:17)
[2022-03-13] MEDS: SODIUM BICARBONATE TAB 650 MG TAB PO SCH (09:17)
[2022-03-13] MEDS: CLOPIDOGREL 75 MG TAB PO SCH (09:17)
[2022-03-13] MEDS: SENNOSIDES-DOCUSATE SODIUM 1 EACH TAB PO SCH (09:22)
[2022-03-13 09:48] VITALS: PULSE 80; TEMP 98.1
--- NOTE | 2022-03-13 11:03 | P.PN ---
Subjective Patient is seen in follow-up for acute kidney injury. Renal function a little better today. Has been voiding. No vomiting or diarrhea. Oral intake poor. Denies chest pain or shortness of breath. Blood pressure stable. Feels weak. No changes overnight. No active complaints. Vital signs are stable. General: No acute distress. HEENT: Head exam is unremarkable. LUNGS: Breath sounds decreased. HEART: Rate and Rhythm are regular. ABDOMEN: Soft, no distention. EXTREMITITES: Trace edema. Objective - Vital Signs Vital signs: Vital Signs Temp 98.1 F 03/13/22 08:00 Pulse 80 03/13/22 08:00 Resp 15 03/13/22 08:00 BP 128/70 03/13/22 08:00 Pulse Ox 97 03/13/22 08:00 FiO2 Intake & Output 03/12/22 03/13/22 03/13/22 18:59 06:59 18:59 Intake Total 720 Balance 720 Intake: Oral 720 Other: Voiding Method Toilet # Voids 1 - Labs CBC & Chem 7: 03/12/22 07:33 03/13/22 07:28 Labs: Abnormal Lab Results - Last 24 Hours (Table) 03/12/22 03/12/22 03/12/22 Range/Units 07:33 07:33 07:33 WBC 11.5 H (3.8-10.6) k/uL Plt Count 98 L (150-450) k/uL Neutrophils # (Manual) 7.71 H (1.3-7.7) k/uL Myelocytes # (Manual) 0.12 H (0) k/uL Nucleated RBCs 2 H (0-0) /100 WBC BUN (9-20) mg/dL Creatinine (0.66-1.25) mg/dL Calcium (8.4-10.2) mg/dL Magnesium (1.6-2.3) mg/dL Lactate Dehydrogenase 854 H (313-618) U/L Procalcitonin 0.27 H (0.02-0.09) ng/mL TSH 5.540 H (0.465-4.680) mIU/L 03/13/22 Range/Units 07:28 WBC (3.8-10.6) k/uL Plt Count (150-450) k/uL Neutrophils # (Manual) (1.3-7.7) k/uL Myelocytes # (Manual) (0) k/uL Nucleated RBCs (0-0) /100 WBC BUN 72 H (9-20) mg/dL Creatinine 2.03 H (0.66-1.25) mg/dL Calcium 8.0 L (8.4-10.2) mg/dL Magnesium 2.4 H (1.6-2.3) mg/dL Lactate Dehydrogenase (313-618) U/L Procalcitonin (0.02-0.09) ng/mL TSH (0.465-4.680) mIU/L Assessment and Plan Plan: Assessment: 1. Acute kidney injury secondary to ATN secondary to hypotension and use of losartan. ?lymphoma induced GN vs renal infiltration of lymphoma (although kidneys not large in size). Patient's creatinine in 2020 was in the range of 1-1.1. Creatinine was 1.86 on admission - 2.03 today. Renal function worsened from diuretics. No hydronephrosis noted on kidney ultrasound. 2. Echocardiogram suggestive of constrictive pericarditis. Cardiology following. 3. Mantle cell lymphoma. Oncology following. Uric acid, potassium and calcium normal. Extensive thoracic adenopathy noted on CAT scan. 4. Chronic kidney disease stage IIIa with baseline creatinine in the range of 1-1.1 in 2020 and was 1.3 as of 01/29/22. 5. Lower extremity edema with pleural effusions noted on CT chest. Improved. 6. Pancytopenia. Hematology following. Iron deficiency noted - status post IV iron and completed 03/12/2022. LDH high. Haptoglobin also high. 7. Metabolic acidosis secondary to acute kidney injury. On oral bicarb. Better. 8. Hypokalemia from poor intake. Magnesium normal. Replaced. Better. Plan: Continue to hold Lasix. Continue to hold losartan for now. Avoid nephrotoxins. Continue to monitor renal function and urine output. Encourage oral intake. Stable for discharge from nephrology standpoint. Repeat BMP and magnesium level 2-3 days postdischarge. Follow up outpatient in 1 week.
--- NOTE | 2022-03-13 12:17 | P.DS ---
Providers Date of admission: 03/03/22 18:17 Expected date of discharge: 03/13/22 Attending physician: Baldemar Merida MD Consults: 03/03/22 18:22 Consult Physician Urgent Consulting Provider: Aubrey Dubon Consult Reason/Comments: Mantle cell lymphoma Do you want consulting provider notified?: Yes 03/04/22 10:23 Consult Physician Urgent Consulting Provider: Vaishnavi Austin Consult Reason/Comments: high creatinine Do you want consulting provider notified?: Yes 03/06/22 10:14 Consult Physician Urgent Consulting Provider: Fatmata Wilkinson Consult Reason/Comments: constrictive pericarditis Do you want consulting provider notified?: Yes 03/08/22 11:05 Consult Physician Urgent Consulting Provider: Eden Willard Consult Reason/Comments: pleural effusion,possibel thoracentesis Do you want consulting provider notified?: Yes 03/11/22 17:34 Consult to Palliative Care Routine Consulting Provider: Caitlin Colby Consult Reason/Comments: palliative care on DC Do you want consulting provider notified?: Yes, Notify in am Primary care physician: [facility] Course: 81 years old male with past medical history of hypothyroidism, coronary artery d isease status post stent and pacemaker, vertigo, lymphoma since 2012, left bundle-branch block. Seizure Was sent from her medicine doctor rule out pulmonary embolism. 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 His oncologist is Dr. Grady, and he was getting chemotherapy last summer, end of August and switched immunotherapy after that which did not help him much so started on a new chemotherapy but feels has lowered into once a day after he developed some low platelet count as he states. For the last week he was getting progressive shortness of breath with wounding and left-sided pleuritic-like chest pain that increases with deep breathing and movement and felt like sharp, He denies any vomiting or diarrhea, he has some difficulty to initiate urination but no dysuria Vitals are stable. wbc of 3.3, hemoglobin 10.0 and platelet count 114 D-dimer is elevated at 5.6. INR is normal is 0.9. Creatinine is elevated at 1.8. Last month was 1.4 and before that was ranging 1.0-1.3. Emergency room patient was started on heparin drip and normal saline 03/05/2022 Patient awake and alert, sitting check comfortable and pleasant with no distress. His blood pressure improved and systolic is 128. However he has low urine output and his creatinine went up to 1.9. He remains on normal saline at 75 mL/h with nephrology team on the case. They recommended to keep holding his angiotensin receptor ruslan. His VQ scan showed low probability for PE, oncology/hematology team recommended to stop heparin drip. Patient understood started on subcu heparin. Also echocardiogram showing evidence of constrictive pericarditis however patient's with no symptoms. Ejection fraction is 60-65% 03/06/2022 Patient was admitted with dyspnea and elevated d-dimer however workup was negative with no PE or DVT per CTA and venous Doppler respectively. Echocardiogram showed constrictive pericarditis which is most likely the cause of his exertional dyspnea besides other causes which could be related to his cancer and deconditioning. Because of this regard to ask for commercial loan officer evaluation. His ejection fraction is 60-65% He had CT of the abdomen and pelvis showing a right lung nodule which is a new ulcer there is a scattered abdominal lymphadenopathy and intestinal wall thickening in the right lower pelvis. Oncology teams on the case. Creatinine stable at 1.8 and IV fluid lowered to 50 mL per hour 03/07/2022 Patient with exertional dyspnea, investigations showed low probability for PE. There was suspicion of constrictive pericarditis however commercial loan officer evaluated the patient and thinks mostly its restrictive pericarditis with fluid overload and recommended treatment with diuretics. Patient received 1 dose of Lasix toda y. Also had CT of the chest without contrast showing bilateral pleural effusion more on the right with atelectasis and enlarged mediastinal, axillary and abdominal lymphadenopathy. We will order a chest ultrasound, there is significant pleural effusion then pulmonary consult may be considered Abdomen that he is hemodynamically stable. His creatinine is 1.9 today IV fluids was discontinued as well 03/08/2022 Patient is currently lying in the bed. No complaints of chest pain. Shortness of breath remains the same. Also having left upper extremity swelling. Currently on room air. No complaints of nausea vomiting or abdominal pain or diarrhea. Maintained sinus rhythm. Patient is being continued on IV Lasix 40 mg twice daily as per nephrology. Laboratory data showed WBC 7.0 to make 0.5 and platelets 132, sodium 138, potassium 4.1 chloride 107 bicarb is 18 BUN 55 and creatinine 2.57, all living 3.3. 03/09/2022. Patient is currently resting in the bed. Currently oriented but seems to be more weak today. No complaints of chest pain or worsening shortness of breath. No leg swelling. Left upper extremity swelling is improving. No evidence of DVT noted on the duplex scan. Enlarging lymph nodes with known lymphoma. Renal function worsened today. Patient also having poor oral intake. Blood pressure is stable. Laboratory data showed WBC 7.0 hemoglobin 8.5 and platelets 132 sodium 138 potassium 4.1 BUN 55 and creatinine 2.57, nephrology and oncology is on board. 03/10/2022 Patient is currently sitting in the chair. Awake alert oriented x3. On room air. Patient feels very weak. Shortness of breath is about the same. Otherwise renal function is worsening with creatinine level 2.67. IV Lasix on hold and patient was increased with oral intake. Patient does have very poor oral intake. No fever no chills. No nausea vomiting or abdominal pain or diarrhea. Laboratory showed WBC 13.4 hemoglobin 9.6 and platelets 129 Sodium 139 potassium 3.7 chloride 108 bicarb is 20 BUN 68 and creatinine 2.67 and blood sugar is 105 albumin 3.3 Oncology and nephrology is on board. 03/11/2022 Patient is currently sitting in the chair. Awake alert and oriented x3. Feels very weak and lethargic. Patient did have very minimal oral intake. Patient was seen by [employer] and recommended appetite stimulant. Patient otherwise afebrile. No headache or dizziness or lightheadedness. Renal function slightly improved with creatinine level 2.53 today. Other laboratory data showed WBC 13.3 hemoglobin 8.5 and platelets 110 Sodium 136 potassium 3.7 chloride 106 bicarb is 19 BUN 74 and creatinine is 2.53 and calcium 8.2 and albumin 2.9. Patient is being continued on prednisone 100 mg daily. Also on Ferrlecit due to iron deficiency anemia. 03/12/2022 Patient to be discharged home with hospice 03/13/2022 Ready for dc home with Palliative care now Plan - Discharge Summary Discharge Rx Participant: Yes New Discharge Prescriptions: New predniSONE 100 mg PO DAILY 5 Days #5 tab Continue Clopidogrel Bisulfate [Plavix] 75 mg PO PC-BRKFST Atorvastatin [Lipitor] 80 mg PO PC-BRKFST Midodrine HCl [ProAmatine] 2.5 mg PO DAILY Levothyroxine Sodium [Synthroid] 75 mcg PO DAILY@0630 Cyanocobalamin (Vitamin B-12) [Vitamin B-12] 1,000 mcg PO DAILY levETIRAcetam [Keppra] 1,000 mg PO BID Cholecalciferol [Vitamin D3 (25 Mcg = 1000 Iu)] 50 mcg PO DAILY Metoprolol Succinate [Toprol XL] 25 mg PO DAILY Sennosides/Docusate Sodium [Senna Plus 8.6-50 mg Softgel] 1 cap PO HS Calcium Carbonate [Tums] 500 mg PO BID PRN PRN Reason: ACID REFLUX Ascorbic Acid [Vitamin C] 500 mg PO DAILY Allopurinol [Zyloprim] 100 mg PO W/BRKFST@829 Losartan Potassium [Cozaar] 12.5 mg PO PC-BRT levETIRAcetam [Keppra] 250 mg PO BID HYDROcodone/APAP 10-325MG [[place] 10-325] 1 tab PO Q6HR PRN PRN Reason: Pain Famotidine 40 mg PO HS Acalabrutinib [Calquence] 100 mg PO DAILY Discharge Medication List Atorvastatin [Lipitor] 80 mg PO -BRKFST 05/30/15 [History] Clopidogrel Bisulfate [Plavix] 75 mg PO PC-BRKFST 05/30/15 [History] Midodrine HCl [ProAmatine] 2.5 mg PO DAILY 05/30/15 [History] Cholecalciferol [Vitamin D3 (25 Mcg = 1000 Iu)] 50 mcg PO DAILY 05/07/21 [History] Cyanocobalamin (Vitamin B-12) [Vitamin B-12] 1,000 mcg PO DAILY 05/07/21 [History] Levothyroxine Sodium [Synthroid] 75 mcg PO DAILY@0630 05/07/21 [History] levETIRAcetam [Keppra] 1,000 mg PO BID 05/07/21 [History] Metoprolol Succinate [Toprol XL] 25 mg PO DAILY 12/04/21 [History] Acalabrutinib [Calquence] 100 mg PO DAILY 03/03/22 [History] Allopurinol [Zyloprim] 100 mg PO W/BRKFST@0830 03/03/22 [History] Ascorbic Acid [Vitamin C] 500 mg PO DAILY 03/03/22 [History] Calcium Carbonate [Tums] 500 mg PO BID PRN 03/03/22 [History] Famotidine 40 mg PO HS 03/03/22 [History] HYDROcodone/APAP 10-325MG [[place] 10-325] 1 tab PO Q6HR PRN 03/03/22 [History] Losartan Potassium [Cozaar] 12.5 mg PO PC-BRKFST 03/03/22 [History] Sennosides/Docusate Sodium [Senna Plus 8.6-50 mg Softgel] 1 cap PO HS 03/03/22 [History] levETIRAcetam [Keppra] 250 mg PO BID 03/03/22 [History] predniSONE 100 mg PO DAILY 5 Days #5 tab 03/12/22 [Rx] Follow up Appointment(s)/Referral(s): Janina Balderas NPC [Nurse Practitioner] - 03/15/22 10:00 am Severo Rosales III, MD [Primary Care Provider] - 1-2 days [facility] [NON-STAFF] - Discharge Disposition: HOME WITH HOSPICE
[2022-03-13 13:54] VITALS: BP 124/74; RESP 14
== END 2022-03-13 13:44 | disposition hospice, home (50) | DRG 840 ==
LOC: EC 15:35 → 3SCARD 18:17
PROVIDERS: ADMIT Internal Medicine; ATTEND Internal Medicine
DX: C83.12 Mantle cell lymphoma, intrathoracic lymph nodes (principal); N17.0 Acute kidney failure with tubular necrosis; D61.810 Antineoplastic chemotherapy induced pancytopenia; I31.9 Disease of pericardium, unspecified; E87.2 Acidosis; D61.818 Other pancytopenia; C83.17 Mantle cell lymphoma, spleen; C83.13 Mantle cell lymphoma, intra-abdominal lymph nodes; I82.612 Acute embolism and thrombosis of superficial veins of left upper extremity; J90 Pleural effusion, not elsewhere classified; J91.0 Malignant pleural effusion; C83.19 Mantle cell lymphoma, extranodal and solid organ sites; E87.70 Fluid overload, unspecified; E03.9 Hypothyroidism, unspecified; E78.5 Hyperlipidemia, unspecified; E86.0 Dehydration; T45.1X5A Adverse effect of antineoplastic and immunosuppressive drugs, initial encounter; E86.1 Hypovolemia; E87.6 Hypokalemia; I25.10 Atherosclerotic heart disease of native coronary artery without angina pectoris; R53.81 Other malaise; G40.909 Epilepsy, unspecified, not intractable, without status epilepticus; I13.10 Hypertensive heart and chronic kidney disease without heart failure, with stage 1 through stage 4 chronic kidney disease, or unspecified chronic kidney disease; Z66 Do not resuscitate; Z20.822 Contact with and (suspected) exposure to COVID-19; M10.9 Gout, unspecified; K59.00 Constipation, unspecified; H91.90 Unspecified hearing loss, unspecified ear; R07.9 Chest pain, unspecified; I44.7 Left bundle-branch block, unspecified; D63.0 Anemia in neoplastic disease; N18.31 Chronic kidney disease, stage 3a; D50.9 Iron deficiency anemia, unspecified; Z51.5 Encounter for palliative care; Z79.890 Hormone replacement therapy; Z79.02 Long term (current) use of antithrombotics/antiplatelets; Z79.899 Other long term (current) drug therapy; Z87.891 Personal history of nicotine dependence; Z95.0 Presence of cardiac pacemaker; Z95.5 Presence of coronary angioplasty implant and graft; I25.2 Old myocardial infarction
CPT/HCPCS: 36410; 36415; 71046; 71250; 74176; 74230; 76604; 76770; 76937; 78582; 80048; 80053; 81001; 82306; 82728; 83010; 83540; 83550; 83615; 83735; 84100; 84145; 84439; 84443; 84484; 84550; 85025; 85027; 85379; 85610; 85730; 87502; 87634; 93005; 93306; 93970; 96374; 99291